=== PATIENT | male | born 1940 | race Caucasian/White ===

== ENCOUNTER → 2018-05-03 09:45 | Outpatient (CLI) | payer MEDICARE, SELFPAY ==
[2018-05-03 11:06] LABS: Cholesterol 198 mg/dL (140-199); HDL Cholesterol 61 mg/dL (40-60); LDL Cholesterol Calculated 125 mg/dL (<100); Triglycerides 62 mg/dL (35-150)
[2018-05-03 11:38] LABS: TSH w/ Reflex to FT4 1.97 uIU/mL (0.47-4.68)
== END ==
PROVIDERS: Family Provider Internal Medicine Cardiovascular Disease; PCP Family Medicine; Visit Provider Family Medicine
DX: E78.5 Hyperlipidemia, unspecified (principal); E04.2 Nontoxic multinodular goiter
CPT/HCPCS: 36415; 80061; 84443

== ENCOUNTER → 2018-05-05 11:47 | Outpatient (CLI) | payer MEDICARE, SELFPAY ==
[2018-05-05 12:49] LABS: Blood Urea Nitrogen 23 mg/dL (9-20); Calcium 9.4 mg/dL (8.4-10.2); Carbon Dioxide 32 mmol/L (22-32); Chloride 100 mmol/L (98-107); Creatine Kinase 218 U/L (55-170); Estimated Glomerular Filt Rate > 60.0 mL/min (>60); Glucose 108 mg/dL (80-110); HEMOLYSIS < 15 (0-50); Potassium 4.5 mmol/L (3.4-5.1); Sodium 138 mmol/L (137-145)
== END ==
PROVIDERS: Family Provider Internal Medicine Cardiovascular Disease; PCP Family Medicine; Visit Provider Family Medicine
DX: I10 Essential (primary) hypertension (principal); E78.5 Hyperlipidemia, unspecified; I48.91 Unspecified atrial fibrillation; M79.1 Myalgia; T46.6X5A Adverse effect of antihyperlipidemic and antiarteriosclerotic drugs, initial encounter
CPT/HCPCS: 80048; 82550

== ENCOUNTER → 2018-06-18 10:39 | Outpatient (CLI) | payer MEDICARE, SELFPAY ==
[2018-06-18 11:54] LABS: Creatine Kinase 149 U/L (55-170)
[2018-06-18 16:23] LABS: Vitamin D 25 Hydroxy (D3) 40.3 ng/mL (30.0-100.0)
== END ==
PROVIDERS: PCP Family Medicine; Visit Provider Family Medicine
DX: G72.0 Drug-induced myopathy (principal); T46.6X5A Adverse effect of antihyperlipidemic and antiarteriosclerotic drugs, initial encounter
CPT/HCPCS: 36415; 82306; 82550

== ENCOUNTER → 2018-09-14 09:54 | Outpatient (CLI) | payer MEDICARE, SELFPAY ==
[2018-09-14 12:05] LABS: Cholesterol 193 mg/dL (140-199); Creatine Kinase 220 U/L (55-170); HDL Cholesterol 64 mg/dL (40-60); LDL Cholesterol Calculated 114 mg/dL (<100); Triglycerides 75 mg/dL (35-150)
== END ==
PROVIDERS: Family Provider Internal Medicine Cardiovascular Disease; PCP Family Medicine; Visit Provider Family Medicine
DX: E78.5 Hyperlipidemia, unspecified (principal); M79.10 Myalgia, unspecified site; T46.6X5A Adverse effect of antihyperlipidemic and antiarteriosclerotic drugs, initial encounter
CPT/HCPCS: 36415; 80061; 82550

== ENCOUNTER → 2018-11-18 09:43 | Outpatient (CLI) | payer MEDICARE, SELFPAY ==
[2018-11-18 13:43] LABS: Cholesterol 233 mg/dL (140-199); Creatine Kinase 211 U/L (55-170); HDL Cholesterol 56 mg/dL (40-60); LDL Cholesterol Calculated 161 mg/dL (<100); Triglycerides 82 mg/dL (35-150)
== END ==
PROVIDERS: PCP Family Medicine; Visit Provider Internal Medicine Cardiovascular Disease
DX: I48.91 Unspecified atrial fibrillation (principal); E78.00 Pure hypercholesterolemia, unspecified
CPT/HCPCS: 36415; 80061; 82550

== ENCOUNTER → 2019-02-11 10:16 | Outpatient (CLI) | payer MEDICARE, SELFPAY ==
[2019-02-11 11:24] LABS: Cholesterol 186 mg/dL (140-199); Creatine Kinase 188 U/L (55-170); HDL Cholesterol 48 mg/dL (40-60); LDL Cholesterol Calculated 123 mg/dL (<100); Triglycerides 75 mg/dL (35-150)
== END ==
PROVIDERS: Family Provider Internal Medicine Cardiovascular Disease; PCP Family Medicine; Visit Provider Family Medicine
DX: E78.5 Hyperlipidemia, unspecified (principal); M79.10 Myalgia, unspecified site; T46.6X5A Adverse effect of antihyperlipidemic and antiarteriosclerotic drugs, initial encounter
CPT/HCPCS: 36415; 80061; 82550

== ENCOUNTER → 2019-04-12 08:32 | Outpatient (CLI) | payer MEDICARE, SELFPAY ==
[2019-04-12 10:49] LABS: Alanine Aminotransferase 23 IU/L (21-72); Albumin 4.2 g/dL (3.5-5.0); Albumin Globulin Ratio 1.5 (1.0-2.8); Alkaline Phosphatase 50 U/L (38-126); Aspartate Aminotransferase 40 IU/L (17-59); BUN Creatinine Ratio 16.7 (6-22); Bilirubin Total 0.9 mg/dL (0.2-1.3); Blood Urea Nitrogen 15 mg/dL (9-20); Calcium 9.3 mg/dL (8.4-10.2); Carbon Dioxide 32 mmol/L (22-32); Chloride 94 mmol/L (98-107); Cholesterol 190 mg/dL (140-199); Estimated Glomerular Filt Rate > 60.0 mL/min (>60); Globulin 2.8 g/dL (1.7-4.1); Glucose 112 mg/dL (80-110); HDL Cholesterol 52 mg/dL (40-60); HEMOLYSIS < 15 (0-50); LDL Cholesterol Calculated 125 mg/dL (<100); Potassium 4.3 mmol/L (3.4-5.1); Sodium 134 mmol/L (137-145); Triglycerides 65 mg/dL (35-150)
== END ==
PROVIDERS: PCP Family Medicine; Visit Provider Family Medicine
DX: E78.5 Hyperlipidemia, unspecified (principal)
CPT/HCPCS: 36415; 80053; 80061

== ENCOUNTER → 2019-04-26 10:31 | Outpatient (CLI) | payer MEDICARE, SELFPAY ==
--- NOTE | 2019-04-26 10:33 | DI.US.S_ITS ---
PROCEDURE: US THYROID INDICATIONS: FOLLOW-UP NODULES TECHNIQUE: Real-time scanning was performed of the thyroid gland, with image documentation. COMPARISON: [facility], [place], THYROID, 05/14/2016, 10:48. [facility], [place], THYROID, 04/23/2016, 10:50. [facility], [place], US THYROID, 02/17/2018, 7:52. FINDINGS: Right: Thyroid lobe measures 4.4 x 1.9 x 1.2 cm, and is homogeneous in echotexture. Left: Thyroid lobe measures 3.5 x 1.1 x 1.2 cm, and is homogenous in echotexture. Isthmus: 2.7 mm thick. Nodule number: 1 Location: Left mid Size: Unchanged at 1.3 x 0.9 x 0.7 cm. Composition: Predominantly solid Echogenicity: Hypoechoic Shape: wider than tall. Margins: Irregular Echogenic foci: None Total points: 5 ACR TI-RADS category: Moderately suspicious Nodule number: 2 Location: Right mid Size: Unchanged at 0.8 x 0.7 x 0.5 cm. Composition: Minimally cystic Echogenicity: Hypoechoic Shape: wider than tall. Margins: Smooth Echogenic foci: None Total points: 2 ACR TI-RADS category: No suspicious Nodule number: 3 Location: Right inferior Size: 1.4 x 0.9 x 0.6 cm. Composition: Solid Echogenicity: Isoechoic Shape: wider than tall. Margins: Smooth Echogenic foci: None Total points: 3 ACR TI-RADS category: Mildly suspicious IMPRESSION: Thyroid nodules as above. Recommend continued followup ultrasound as detailed below. ACR TI-RADS definitions and recommendations: TI-RADS 1 (benign): 0 points. FNA not needed. TI-RADS 2 (not suspicious): 2 points. FNA not needed. TI-RADS 3 (mildly suspicious): 3 points. * FNA if 2.5 cm or larger, follow up if 1.5 cm or larger (at 1, 3, and 5 years). TI-RADS 4 (moderately suspicious): 4-6 points. * FNA if 1.5 cm or larger, follow up if 1 cm or larger (at 1, 2, 3, and 5 years). TI-RADS 5 (highly suspicious): 7 points or more. * FNA if 1 cm or larger, follow up if 0.5 cm or larger (every year for 5 years). Dictated by: Jameson CORTEZ Interpreted: Lulu Calderon MD on 04/26/2019 at 11:25 Approved by: Lulu Calderon M.D. on 04/26/2019 at 16:20
== END ==
PROVIDERS: PCP Family Medicine; Visit Provider Family Medicine
DX: E04.2 Nontoxic multinodular goiter (principal)
CPT/HCPCS: 76536

== ENCOUNTER → 2019-08-02 09:52 | Outpatient (CLI) | payer MEDICARE, SELFPAY ==
[2019-08-02 10:57] LABS: Alanine Aminotransferase 32 IU/L (21-72); Albumin 4.3 g/dL (3.5-5.0); Albumin Globulin Ratio 1.5 (1.0-2.8); Alkaline Phosphatase 54 U/L (38-126); Aspartate Aminotransferase 46 IU/L (17-59); Blood Urea Nitrogen 18 mg/dL (9-20); Calcium 9.6 mg/dL (8.4-10.2); Carbon Dioxide 33 mmol/L (22-32); Chloride 96 mmol/L (98-107); Cholesterol 174 mg/dL (140-199); Creatine Kinase 337 U/L (55-170); Estimated Glomerular Filt Rate > 60.0 mL/min (>60); Globulin 2.9 g/dL (1.7-4.1); Glucose 122 mg/dL (80-110); HDL Cholesterol 53 mg/dL (40-60); HEMOLYSIS < 15 (0-50); LDL Cholesterol Calculated 109 mg/dL (<100); Potassium 5.3 mmol/L (3.4-5.1); Sodium 135 mmol/L (137-145); Total Protein 7.2 g/dL (6.3-8.2); Triglycerides 59 mg/dL (35-150)
[2019-08-02 11:15] LABS: Free T3, Triiodothyronine Free 3.37 pg/mL (2.77-5.27); Free T4, Direct Thyroxine 1.16 ng/dL (0.78-2.19)
[2019-08-02 11:29] LABS: Thyroid Stimulating Hormone 2.18 uIU/mL (0.47-4.68)
[2019-08-04 14:34] LABS: Thyroid Peroxidase Antibodies 170 IU/mL (< 9)
== END ==
PROVIDERS: PCP Family Medicine; Visit Provider Family Medicine
DX: I10 Essential (primary) hypertension (principal); E03.9 Hypothyroidism, unspecified; E78.5 Hyperlipidemia, unspecified
CPT/HCPCS: 36415; 80053; 80061; 82550; 84439; 84443; 84481; 86376

== ENCOUNTER 2019-08-16 10:30 | Outpatient (RCR) | payer MEDICARE, SELFPAY ==
--- NOTE | 2019-07-14 14:59 | PT.OIE ---
Current Diagnoses Unilateral primary osteoarthritis, right knee (07/14/19) Unilateral primary osteoarthritis, left knee (07/14/19) Past Medical History (Last Updated 04/21/19 @ 19:14 by Lelo Elkins DO) Atrial fibrillation (Chronic 2002) Atrial fibrillation with controlled ventricular response (Chronic 07/07/11) BCC (basal cell carcinoma of skin) (Resolved 2013) Cataract (Resolved 2013) Central sleep apnea (Chronic) Chicken pox (Resolved) Hyperlipidemia (Chronic 07/07/11) Hyperlipidemia (Chronic) Hypertension (Chronic) Hypertension (Chronic) Hypothyroidism (Chronic) Measles (Resolved) Multinodular goiter (Chronic 11/16/15) Mumps (Resolved) Obstructive sleep apnea (Chronic) Rupture of left triceps tendon (Resolved 2012) Sleep apnea (Chronic 2003) Squamous cell carcinoma of left lower leg (Resolved) Past Surgical History (Last Reviewed 04/16/19 @ 19:24 by VIRGEN Valdovinos) Anesthesia (Resolved) History of basal cell carcinoma excision (Resolved 2013) History of cataract removal with insertion of prosthetic lens (Resolved 10/2014) History of orthopedic surgery (Resolved 2012) History of thumb surgery (Resolved ~1951) Visit Care Team Role Provider Type Lelo Elkins DO Primary Care Provider Physician Specialty: Family Practice Address: [address] [place] [address], [address], [address] Email: [email or web address] Az Oshea MD Attending Provider Non-Staff Specialty: Orthopedics Address: [address] [place] [address], [phone] Email: Physical Therapy Initial Evaluation PT-OP-A Visit Information Start: 07/12/19 16:28 Freq: Status: Active Protocol: Document 07/14/19 10:38 LRN (Rec: 07/14/19 13:37 LRN [id number]) Out-Patient Physical Therapy Visit Information Visit Information Visit Type Initial Evaluation Visit Start Time 10:38 Visit Stop Time 11:30 Total Visit Minutes 52 Visit Number 1 Evaluation Information Evaluation Date 07/14/19 Precautions Precautions Neuropathy History of skin cancer Controlled blood pressure with use of Warfarin PT-OP-B Current Condition Start: 07/12/19 16:28 Freq: Status: Active Protocol: Document 07/14/19 10:38 LRN (Rec: 07/14/19 13:37 LRN [id number]) Current Condition Prior Functional Status Baseline Function- ADL's Independent Baseline Function- Mobility Independent Baseline Function- Gait Able to walk on uneven ground (trails, inclines) 1 yr ago. Baseline Function- Other Ambulates up/down stairs with reciprocal gait > 2 times, 6 months ago. Current Functional Impairments (Reported) Functional Limitations- ADL's Decreased ability to transfer sit to stand from regular height surface (uses hands). Decreased ability to transfer in/out of car (lifts legs into car). Functional Limitations- Mobility/Gait Limited tolerance for up/down stairs in sideways gait ~ 2 times. Limited ability to walk on unlevel ground (inclines, trails) Personal Factors Other Personal Factors That May Effect Arthritis Therapy/Recovery Neuropathy History of skin cancer Controlled blood pressure with use of Warfarin PT-OP-C Subjective Start: 07/12/19 16:28 Freq: Status: Active Protocol: Document 07/14/19 10:38 LRN (Rec: 07/14/19 13:37 LRN [id number]) Patient Questionnaires Lower Extremity Functional Scale LEFS Score 44 LEFS Impairment 40 to 59% Impaired (Score 32- 47) OP-PT Pain Assessment Pain Assessment Grid Paper Pain Assessment Grid Completed Yes Location Bilateral Anterior Knee Pain Location Details Inferior to the patella Scale Used Numeric (1 - 10) Description Aching Description- Other Pain intensity 3-5/10 Frequency Daily Pain Duration During and after activity Radiating Location Bilateral inner thigh muscles Pain Aggravating Factors Changing Position,ADL's, Activity,Walking Pain Alleviating Factors Medication,Inactivity Home Pain Medication Use Pain Medications Used Yes Home Pain Medication Frequency Tylenol as needed. PT-OP-F Manual Assessment Start: 07/12/19 16:28 Freq: Status: Active Protocol: Document 07/14/19 10:38 LRN (Rec: 07/14/19 13:37 LRN [id number]) Manual Assessments Soft Tissue Assessment Soft Tissue Mobility Assessment No palpable areas of tenderness around the knee joints. Tender at inner thigh with stretch. Joint Mobility Assessment Joint Mobility Assessment Pain in medial R knee with varus stress applied. PT-OP-G Mobility & Gait Start: 07/12/19 16:28 Freq: Status: Active Protocol: Document 07/14/19 10:38 LRN (Rec: 07/14/19 13:37 LRN [id number]) OP Mobility Evaluation Transfers Sit to Stand Difficulty with regular height chairs and standard toilet, requiring use of UE's to stand Floor Transfers Requires use of UE's to push into standing. Functional Movements Squats Difficulty due to cheryl knee pain OP Gait Assessment Gait Gait Assistance Required: Independent Able to Maintain Weight Bearing Status Yes During Gait Assistive Devices Assistive Device None Comments Gait Comments Gait speed is 20'/7.41 secs ( 10'/3.75 secs) = 2.7 ft/sec. Pt ambulates with excessive R trunk sway, heavy R heel strike, decreased R knee flex during toe off phase. Stair Climbing Evaluation Comments Stair Climbing Comments Pt notes pain with stair ambulation. PT-OP-J Posture/Palpation/Skin Start: 07/12/19 16:28 Freq: Status: Active Protocol: Document 07/14/19 10:38 LRN (Rec: 07/14/19 13:37 LRN [id number]) Posture Evaluation Comments Posture Comments Standing: Low R shoulder and scapula, varus of bilateral knees. PT-OP-K Range of Motion Start: 07/12/19 16:28 Freq: Status: Active Protocol: Document 07/14/19 10:38 LRN (Rec: 07/14/19 13:37 LRN [id number]) Hip Goniometric Range of Motion Hip Right Passive Testing Position Supine Straight Leg Raise 80 Abduction 10 Internal Rotation 30 External Rotation 20 Left Passive Testing Position Supine Straight Leg Raise 25 Abduction 20 Internal Rotation 25 External Rotation 20 Knee Goniometric Range of Motion Knee Right Knee ROM WFL Yes Flexion Active (degrees) 132 Extension Active (degrees) 0 Left Flexion Active (degrees) 132 Extension Active (degrees) 0 Ankle and Foot Goniometric Range of Motion Ankle and Foot Right Active Ankle/Foot ROM WFL Yes Left Active Ankle/Foot ROM WFL Yes PT-OP-L Special Tests Start: 07/12/19 16:28 Freq: Status: Active Protocol: Document 07/14/19 10:38 LRN (Rec: 07/14/19 13:37 LRN [id number]) Special Tests Knee Special Tests Varus- 25 Degrees Test Results Positive R knee Comments R knee: Pain in medial knee joint Patellar Grind Test Test Results Negative bilaterally PT-OP-M Strength Start: 07/12/19 16:28 Freq: Status: Active Protocol: Document 07/14/19 10:38 LRN (Rec: 07/14/19 13:37 LRN [id number]) Hip Strength Hip Manual Muscle Testing Right Adduction 3 Fair Comments Generally WNL except as noted above. Left Adduction 4 Good Reason Not Measured WFL Comments Generally WNL except as noted above. Knee Strength Knee Manual Muscle Testing Right Reason Not Measured WFL Left Reason Not Measured WFL Ankle/Foot Strength Ankle and Foot Manual Muscle Testing Right Plantarflexion (S1) 3+ Fair+ Comments Generally WNL except PF above. Left Plantarflexion (S1) 3+ Fair+ Comments Generally WNL except PF above. PT-OP-Q Treatments Start: 07/12/19 16:28 Freq: Status: Active Protocol: Document 07/14/19 10:38 LRN (Rec: 07/14/19 13:37 LRN [id number]) Self-Care/Home Management Treatment Education Patient Education Home Exercise Program,Joint Protection,Pain Management, Posture Other Education Discussed use of stationary bike for exercise and use of exercise to help maintain joint stability. Discussed postural changes and effects on weight bearing of knee joints. Discussed use of cryotherapy for pain management Activities Self-Care/Home Management Activities Instructed, educated, reviewed with pt verbal HEP: Stretch to Hip AD's. I/S pt in decreased heel strike pressure in the R LE and I/S pt in use of stationary bike for low weight bearing and high rpm of 70 or above with precautions for decreasing or stopping with pain. PT-OP-T Assessment and Plan Start: 07/12/19 16:28 Freq: Status: Active Protocol: Document 07/14/19 10:38 LRN (Rec: 07/14/19 13:37 LRN [id number]) Physical Therapy Assessment Rehab Potential Rehabilitation Potential Good Evaluation Complexity Number of Personal Factors/Comorbidities 1-2 Number of Body Systems Impaired 4 or More Clinical Presentation at Evaluation Stable Impairments Impairments Activity Tolerance,Functional Mobility,Gait,Pain,ROM, Strength Other Concerns Barriers to Rehabilitation Arthritis Neuropathy History of skin cancer Goals Five Impairment Lacks appropriate self care HEP. Residential Goal (LTG) Pt will be independent in a self care HEP. LTG Duration 09/08/19 Four Impairment Difficulty getting in/out of his car (low surface) due to cheryl knee pain. Blanking Machine Operator Goal (LTG) Pt will be able to report getting in/out of a car with moderate or less difficulty per LEFS score. LTG Duration 08/25/19 Three Impairment Stair ambulation going down sideways due to bilateral knee pain. Residential Goal (LTG) Pt will be able to ambulate a flight of stairs with a normal gait pattern with a little bit to moderate difficulty. LTG Duration 08/25/19 Two Impairment Bilateral knee pain with incline ambulation. Residential Goal (LTG) Pt will be able to ambulate 30 ' on unlevel ground and/or inclines (trails) using a hiking stick with tolerable pain of no greater than 3/10. LTG Duration 08/25/19 One Impairment Decreased bilateral hip mobility contributing to cheryl knee pain Short Term Goal (STG) Improve hip AB mobility to lessen hip AD pain with walking. STG Duration 08/01/19 Assessment Summary Assessment Pt presents with decreased hip soft tissue mobility and mechanical dysfunction of the knees bilaterally with limited knee mobility. He has decreased functional strength for getting up/down from regular height chairs and difficulty getting in/out of his car due to bilateral knee pain. Mechanically he is hindered due to his tall height. He has no palpable tenderness at the knee joints, but medial knee pain can be reproduced with compression at the joint. He has reproduciable pain in the anterior knees with PSLR, but he has no specific areas of tenderness in the lumbar spine ; therefore it is doubtful he has lumbar involvement, but should be monitored anyway for possible involvement. The pt will benefit from skilled physical therapy to improve hip (AB & hamstring)/knee ( flex) joint mobility, improve stability at the knee with general LE strengthening (hip AD and ankle PF), strengthen with functional motions and gait mechanics and posture. Physical Therapy Plan Frequency and Duration Frequency of Treatment 2x/Week Plan of Care Start Date 07/14/19 Plan of Care End Date 09/08/19 Therapeutic Interventions Therapeutic Interventions Balance Training,Gait Training ,Home Exercise Program,Joint Mobilizations,Manual Therapy, Patient/Caregiver Education, Self-Care/Home Management,Soft Tissue Mobilization,Taping, Therapeutic Activities, Therapeutic Exercises Modalities Cold Pack/Ice Massage,Electric Stimulation,Hot Packs Next Visit Focus/Plan Next Note Type Treatment Note Next Visit Plan Start with LE cardio exercise bike with low resistance/high RPMS, progress to gait on TM at inclines. Start hip AD/ hamstring and knee flexion stretching and strengthening: hip AD's and ankle PF. Add balance training to limit hard heel strike with gait. Manual therapy as needed to improve patella and knee joint mechanics. Monitor for R meniscus injury. Stair, gait, posture training
--- NOTE | 2019-07-14 15:11 | PT.OIE ---
Current Diagnoses Unilateral primary osteoarthritis, right knee (07/14/19) Unilateral primary osteoarthritis, left knee (07/14/19) Past Medical History (Last Updated 04/21/19 @ 19:14 by Lelo Elkins DO) Atrial fibrillation (Chronic 2002) Atrial fibrillation with controlled ventricular response (Chronic 07/07/11) BCC (basal cell carcinoma of skin) (Resolved 2013) Cataract (Resolved 2013) Central sleep apnea (Chronic) Chicken pox (Resolved) Hyperlipidemia (Chronic 07/07/11) Hyperlipidemia (Chronic) Hypertension (Chronic) Hypertension (Chronic) Hypothyroidism (Chronic) Measles (Resolved) Multinodular goiter (Chronic 11/16/15) Mumps (Resolved) Obstructive sleep apnea (Chronic) Rupture of left triceps tendon (Resolved 2012) Sleep apnea (Chronic 2003) Squamous cell carcinoma of left lower leg (Resolved) Past Surgical History (Last Reviewed 04/16/19 @ 19:24 by VIRGEN Valdovinos) Anesthesia (Resolved) History of basal cell carcinoma excision (Resolved 2013) History of cataract removal with insertion of prosthetic lens (Resolved 10/2014) History of orthopedic surgery (Resolved 2012) History of thumb surgery (Resolved ~1951) Visit Care Team Role Provider Type Lelo Elkins DO Primary Care Provider Physician Specialty: Family Practice Address: [address] [place] [address], [address], [address] Email: [email or web address] Az Oshea MD Attending Provider Non-Staff Specialty: Orthopedics Address: [address] [place] [address], [phone] Email: Physical Therapy Initial Evaluation PT-OP-A Visit Information Start: 07/12/19 16:28 Freq: Status: Active Protocol: Document 07/14/19 10:38 LRN (Rec: 07/14/19 13:37 LRN [id number]) Out-Patient Physical Therapy Visit Information Visit Information Visit Type Initial Evaluation Visit Start Time 10:38 Visit Stop Time 11:30 Total Visit Minutes 52 Visit Number 1 Evaluation Information Evaluation Date 07/14/19 Precautions Precautions Neuropathy History of skin cancer Controlled blood pressure with use of Warfarin PT-OP-B Current Condition Start: 07/12/19 16:28 Freq: Status: Active Protocol: Document 07/14/19 10:38 LRN (Rec: 07/14/19 13:37 LRN [id number]) Current Condition History of Current Condition Onset Date 10 yrs ago Current Complaints Progressively worsening of cheryl knee pain History of Current Condition Pt reports he has had X-rays indicating arthritis, but not severe enough for surgery. He has tried a strap knee brace that he noticed with use onset of hip problems (medial thigh pain). He reports being on Lipitor for 10 yrs and was told part of the pain in his legs was medication induced. He was changed to a non-statin medication and states some of the pain in his legs has decreased. He is limited in his ability to walk as fast as he used to and can't walk uneven ground (trails). He has pain mainly with transitions and with activity. Prior Treatments and Tests PT reports X-rays of both knees show arthrits of bone on bone. He has had a cortisone injection in his R medial knee that caused more pain. Treatment Goals Patient/Caregiver Goals Pt goal is to be able to walk better, return to walking trails and be able to have less pain overall. He understands he will not become painfree but would like to be able to transfer with less pain. Prior Functional Status Baseline Function- ADL's Independent Baseline Function- Mobility Independent Baseline Function- Gait Able to walk on uneven ground (trails, inclines) 1 yr ago. Baseline Function- Other Ambulates up/down stairs with reciprocal gait > 2 times, 6 months ago. Current Functional Impairments (Reported) Functional Limitations- ADL's Decreased ability to transfer sit to stand from regular height surface (uses hands). Decreased ability to transfer in/out of car (lifts legs into car). Functional Limitations- Mobility/Gait Limited tolerance for up/down stairs in sideways gait ~ 2 times. Limited ability to walk on unlevel ground (inclines, trails) Personal Factors Other Personal Factors That May Effect Arthritis Therapy/Recovery Neuropathy History of skin cancer Controlled blood pressure with use of Warfarin PT-OP-C Subjective Start: 07/12/19 16:28 Freq: Status: Active Protocol: Document 07/14/19 10:38 LRN (Rec: 07/14/19 13:37 LRN [id number]) Patient Questionnaires Lower Extremity Functional Scale LEFS Score 44 LEFS Impairment 40 to 59% Impaired (Score 32- 47) OP-PT Pain Assessment Pain Assessment Grid Paper Pain Assessment Grid Completed Yes Location Bilateral Anterior Knee Pain Location Details Inferior to the patella Scale Used Numeric (1 - 10) Description Aching Description- Other Pain intensity 3-5/10 Frequency Daily Pain Duration During and after activity Radiating Location Bilateral inner thigh muscles Pain Aggravating Factors Changing Position,ADL's, Activity,Walking Pain Alleviating Factors Medication,Inactivity Home Pain Medication Use Pain Medications Used Yes Home Pain Medication Frequency Tylenol as needed. PT-OP-F Manual Assessment Start: 07/12/19 16:28 Freq: Status: Active Protocol: Document 07/14/19 10:38 LRN (Rec: 07/14/19 13:37 LRN [id number]) Manual Assessments Soft Tissue Assessment Soft Tissue Mobility Assessment No palpable areas of tenderness around the knee joints. Tender at inner thigh with stretch. Joint Mobility Assessment Joint Mobility Assessment Pain in medial R knee with varus stress applied. PT-OP-G Mobility & Gait Start: 07/12/19 16:28 Freq: Status: Active Protocol: Document 07/14/19 10:38 LRN (Rec: 07/14/19 13:37 LRN [id number]) OP Mobility Evaluation Transfers Sit to Stand Difficulty with regular height chairs and standard toilet, requiring use of UE's to stand Floor Transfers Requires use of UE's to push into standing. Functional Movements Squats Difficulty due to cheryl knee pain OP Gait Assessment Gait Gait Assistance Required: Independent Able to Maintain Weight Bearing Status Yes During Gait Assistive Devices Assistive Device None Comments Gait Comments Gait speed is 20'/7.41 secs ( 10'/3.75 secs) = 2.7 ft/sec. Pt ambulates with excessive R trunk sway, heavy R heel strike, decreased R knee flex during toe off phase. Stair Climbing Evaluation Comments Stair Climbing Comments Pt notes pain with stair ambulation. PT-OP-J Posture/Palpation/Skin Start: 07/12/19 16:28 Freq: Status: Active Protocol: Document 07/14/19 10:38 LRN (Rec: 07/14/19 13:37 LRN [id number]) Posture Evaluation Comments Posture Comments Standing: Low R shoulder and scapula, varus of bilateral knees. PT-OP-K Range of Motion Start: 07/12/19 16:28 Freq: Status: Active Protocol: Document 07/14/19 10:38 LRN (Rec: 07/14/19 13:37 LRN [id number]) Hip Goniometric Range of Motion Hip Right Passive Testing Position Supine Straight Leg Raise 80 Abduction 10 Internal Rotation 30 External Rotation 20 Left Passive Testing Position Supine Straight Leg Raise 25 Abduction 20 Internal Rotation 25 External Rotation 20 Knee Goniometric Range of Motion Knee Right Knee ROM WFL Yes Flexion Active (degrees) 132 Extension Active (degrees) 0 Left Flexion Active (degrees) 132 Extension Active (degrees) 0 Ankle and Foot Goniometric Range of Motion Ankle and Foot Right Active Ankle/Foot ROM WFL Yes Left Active Ankle/Foot ROM WFL Yes PT-OP-L Special Tests Start: 07/12/19 16:28 Freq: Status: Active Protocol: Document 07/14/19 10:38 LRN (Rec: 07/14/19 13:37 LRN [id number]) Special Tests Knee Special Tests Varus- 25 Degrees Test Results Positive R knee Comments R knee: Pain in medial knee joint Patellar Grind Test Test Results Negative bilaterally PT-OP-M Strength Start: 07/12/19 16:28 Freq: Status: Active Protocol: Document 07/14/19 10:38 LRN (Rec: 07/14/19 13:37 LRN [id number]) Hip Strength Hip Manual Muscle Testing Right Adduction 3 Fair Comments Generally WNL except as noted above. Left Adduction 4 Good Reason Not Measured WFL Comments Generally WNL except as noted above. Knee Strength Knee Manual Muscle Testing Right Reason Not Measured WFL Left Reason Not Measured WFL Ankle/Foot Strength Ankle and Foot Manual Muscle Testing Right Plantarflexion (S1) 3+ Fair+ Comments Generally WNL except PF above. Left Plantarflexion (S1) 3+ Fair+ Comments Generally WNL except PF above. PT-OP-Q Treatments Start: 07/12/19 16:28 Freq: Status: Active Protocol: Document 07/14/19 10:38 LRN (Rec: 07/14/19 13:37 LRN [id number]) Self-Care/Home Management Treatment Education Patient Education Home Exercise Program,Joint Protection,Pain Management, Posture Other Education Discussed use of stationary bike for exercise and use of exercise to help maintain joint stability. Discussed postural changes and effects on weight bearing of knee joints. Discussed use of cryotherapy for pain management Activities Self-Care/Home Management Activities Instructed, educated, reviewed with pt verbal HEP: Stretch to Hip AD's. I/S pt in decreased heel strike pressure in the R LE and I/S pt in use of stationary bike for low weight bearing and high rpm of 70 or above with precautions for decreasing or stopping with pain. PT-OP-T Assessment and Plan Start: 07/12/19 16:28 Freq: Status: Active Protocol: Document 07/14/19 10:38 LRN (Rec: 07/14/19 13:37 LRN [id number]) Physical Therapy Assessment Rehab Potential Rehabilitation Potential Good Evaluation Complexity Number of Personal Factors/Comorbidities 1-2 Number of Body Systems Impaired 4 or More Clinical Presentation at Evaluation Stable Impairments Impairments Activity Tolerance,Functional Mobility,Gait,Pain,ROM, Strength Other Concerns Barriers to Rehabilitation Arthritis Neuropathy History of skin cancer Goals Five Impairment Lacks appropriate self care HEP. [facility] Goal (LTG) Pt will be independent in a self care HEP. LTG Duration 09/08/19 Four Impairment Difficulty getting in/out of his car (low surface) due to cheryl knee pain. [employer] Goal (LTG) Pt will be able to report getting in/out of a car with moderate or less difficulty per LEFS score. LTG Duration 08/25/19 Three Impairment Stair ambulation going down sideways due to bilateral knee pain. [employer] Goal (LTG) Pt will be able to ambulate a flight of stairs with a normal gait pattern with a little bit to moderate difficulty. LTG Duration 08/25/19 Two Impairment Bilateral knee pain with incline ambulation. [employer] Goal (LTG) Pt will be able to ambulate 30 ' on unlevel ground and/or inclines (trails) using a hiking stick with tolerable pain of no greater than 3/10. LTG Duration 08/25/19 One Impairment Decreased bilateral hip mobility contributing to cheryl knee pain Short Term Goal (STG) Improve hip AB mobility to lessen hip AD pain with walking. STG Duration 08/01/19 Assessment Summary Assessment Pt presents with decreased hip soft tissue mobility and mechanical dysfunction of the knees bilaterally with limited knee mobility. He has decreased functional strength for getting up/down from regular height chairs and difficulty getting in/out of his car due to bilateral knee pain. Mechanically he is hindered due to his tall height. He has no palpable tenderness at the knee joints, but medial knee pain can be reproduced with compression at the joint. He has reproduciable pain in the anterior knees with PSLR, but he has no specific areas of tenderness in the lumbar spine ; therefore it is doubtful he has lumbar involvement, but should be monitored anyway for possible involvement. The pt will benefit from skilled physical therapy to improve hip (AB & hamstring)/knee ( flex) joint mobility, improve stability at the knee with general LE strengthening (hip AD and ankle PF), strengthen with functional motions and gait mechanics and posture. Physical Therapy Plan Frequency and Duration Frequency of Treatment 2x/Week Plan of Care Start Date 07/14/19 Plan of Care End Date 09/08/19 Therapeutic Interventions Therapeutic Interventions Balance Training,Gait Training ,Home Exercise Program,Joint Mobilizations,Manual Therapy, Patient/Caregiver Education, Self-Care/Home Management,Soft Tissue Mobilization,Taping, Therapeutic Activities, Therapeutic Exercises Modalities Cold Pack/Ice Massage,Electric Stimulation,Hot Packs Next Visit Focus/Plan Next Note Type Treatment Note Next Visit Plan Start with LE cardio exercise bike with low resistance/high RPMS, progress to gait on TM at inclines. Start hip AD/ hamstring and knee flexion stretching and strengthening: hip AD's and ankle PF. Add balance training to limit hard heel strike with gait. Manual therapy as needed to improve patella and knee joint mechanics. Monitor for R meniscus injury. Stair, gait, posture training
--- NOTE | 2019-07-15 12:22 | PT.OTN ---
Current Diagnoses Unilateral primary osteoarthritis, right knee (07/15/19) Unilateral primary osteoarthritis, left knee (07/15/19) Physical Therapy Treatment Note PT-OP-A Visit Information Start: 07/12/19 16:28 Freq: Status: Active Protocol: Document 07/15/19 09:54 LRN (Rec: 07/15/19 10:34 LRN [id number]) Out-Patient Physical Therapy Visit Information Visit Information Visit Type Treatment Note Visit Start Time 09:54 Visit Stop Time 10:38 Total Visit Minutes 44 Visit Number 2 Evaluation Information Evaluation Date 07/14/19 Precautions Precautions Neuropathy History of skin cancer Controlled blood pressure with use of Warfarin PT-OP-B Current Condition Start: 07/12/19 16:28 Freq: Status: Active Protocol: Document 07/14/19 10:38 LRN (Rec: 07/14/19 13:37 LRN [id number]) Current Condition History of Current Condition Onset Date 10 yrs ago Current Complaints Progressively worsening of espinoza knee pain History of Current Condition Pt reports he has had X-rays indicating arthritis, but not severe enough for surgery. He has tried a strap knee brace that he noticed with use onset of hip problems (medial thigh pain). He reports being on Lipitor for 10 yrs and was told part of the pain in his legs was medication induced. He was changed to a non-statin medication and states some of the pain in his legs has decreased. He is limited in his ability to walk as fast as he used to and can't walk uneven ground (trails). He has pain mainly with transitions and with activity. Prior Treatments and Tests PT reports X-rays of both knees show arthrits of bone on bone. He has had a cortisone injection in his R medial knee that caused more pain. Treatment Goals Patient/Caregiver Goals Pt goal is to be able to walk better, return to walking trails and be able to have less pain overall. He understands he will not become painfree but would like to be able to transfer with less pain. Prior Functional Status Baseline Function- ADL's Independent Baseline Function- Mobility Independent Baseline Function- Gait Able to walk on uneven ground (trails, inclines) 1 yr ago. Baseline Function- Other Ambulates up/down stairs with reciprocal gait > 2 times, 6 months ago. Current Functional Impairments (Reported) Functional Limitations- ADL's Decreased ability to transfer sit to stand from regular height surface (uses hands). Decreased ability to transfer in/out of car (lifts legs into car). Functional Limitations- Mobility/Gait Limited tolerance for up/down stairs in sideways gait ~ 2 times. Limited ability to walk on unlevel ground (inclines, trails) Personal Factors Other Personal Factors That May Effect Arthritis Therapy/Recovery Neuropathy History of skin cancer Controlled blood pressure with use of Warfarin PT-OP-C Subjective Start: 07/12/19 16:28 Freq: Status: Active Protocol: Document 07/15/19 09:54 LRN (Rec: 07/15/19 10:34 LRN [id number]) OP-PT Subjective Patient Comments Patient Comments States he is very stiff normally in the mornings. States functionally he notes he has to pull himself up stairs and is not able to get up out of a bathtub. PT-OP-F Manual Assessment Start: 07/12/19 16:28 Freq: Status: Active Protocol: Document 07/14/19 10:38 LRN (Rec: 07/14/19 13:37 LRN [id number]) Manual Assessments Soft Tissue Assessment Soft Tissue Mobility Assessment No palpable areas of tenderness around the knee joints. Tender at inner thigh with stretch. Joint Mobility Assessment Joint Mobility Assessment Pain in medial R knee with varus stress applied. PT-OP-G Mobility & Gait Start: 07/12/19 16:28 Freq: Status: Active Protocol: Document 07/14/19 10:38 LRN (Rec: 07/14/19 13:37 LRN [id number]) OP Mobility Evaluation Transfers Sit to Stand Difficulty with regular height chairs and standard toilet, requiring use of UE's to stand Floor Transfers Requires use of UE's to push into standing. Functional Movements Squats Difficulty due to espinoza knee pain OP Gait Assessment Gait Gait Assistance Required: Independent Able to Maintain Weight Bearing Status Yes During Gait Assistive Devices Assistive Device None Comments Gait Comments Gait speed is 20'/7.41 secs ( 10'/3.75 secs) = 2.7 ft/sec. Pt ambulates with excessive R trunk sway, heavy R heel strike, decreased R knee flex during toe off phase. Stair Climbing Evaluation Comments Stair Climbing Comments Pt notes pain with stair ambulation. PT-OP-J Posture/Palpation/Skin Start: 07/12/19 16:28 Freq: Status: Active Protocol: Document 07/14/19 10:38 LRN (Rec: 07/14/19 13:37 LRN [id number]) Posture Evaluation Comments Posture Comments Standing: Low R shoulder and scapula, varus of bilateral knees. PT-OP-K Range of Motion Start: 07/12/19 16:28 Freq: Status: Active Protocol: Document 07/14/19 10:38 LRN (Rec: 07/14/19 13:37 LRN [id number]) Hip Goniometric Range of Motion Hip Right Passive Testing Position Supine Straight Leg Raise 80 Abduction 10 Internal Rotation 30 External Rotation 20 Left Passive Testing Position Supine Straight Leg Raise 25 Abduction 20 Internal Rotation 25 External Rotation 20 Knee Goniometric Range of Motion Knee Right Knee ROM WFL Yes Flexion Active (degrees) 132 Extension Active (degrees) 0 Left Flexion Active (degrees) 132 Extension Active (degrees) 0 Ankle and Foot Goniometric Range of Motion Ankle and Foot Right Active Ankle/Foot ROM WFL Yes Left Active Ankle/Foot ROM WFL Yes PT-OP-L Special Tests Start: 07/12/19 16:28 Freq: Status: Active Protocol: Document 07/14/19 10:38 LRN (Rec: 07/14/19 13:37 LRN [id number]) Special Tests Knee Special Tests Varus- 25 Degrees Test Results Positive R knee Comments R knee: Pain in medial knee joint Patellar Grind Test Test Results Negative bilaterally PT-OP-M Strength Start: 07/12/19 16:28 Freq: Status: Active Protocol: Document 07/14/19 10:38 LRN (Rec: 07/14/19 13:37 LRN [id number]) Hip Strength Hip Manual Muscle Testing Right Adduction 3 Fair Comments Generally WNL except as noted above. Left Adduction 4 Good Reason Not Measured WFL Comments Generally WNL except as noted above. Knee Strength Knee Manual Muscle Testing Right Reason Not Measured WFL Left Reason Not Measured WFL Ankle/Foot Strength Ankle and Foot Manual Muscle Testing Right Plantarflexion (S1) 3+ Fair+ Comments Generally WNL except PF above. Left Plantarflexion (S1) 3+ Fair+ Comments Generally WNL except PF above. PT-OP-Q Treatments Start: 07/12/19 16:28 Freq: Status: Active Protocol: Document 07/15/19 09:54 LRN (Rec: 07/15/19 10:34 LRN [id number]) Cardio Equipment Bicycle (Upright) Duration (Minutes) 10 Resistance 4 Seat Position 10 Other Try seat at 11 next visit Therapeutic Exercises Supine Exercises Hip AD stretch Supine Exercise Name Hip Adductors stretching f/b 10x active stretch Side bilateral Knee flex stretch Supine Exercise Name KTC knee flex stretch f/b 10x active stretch Side bilateral Reps/Minutes 6' Gait Training Gait Activity Heel strike Description Heel strike with gait to reduce excessive weight onto R LE. Device Used None Level of Assistance None Surface Level Comments Improved gait mechanics with normal heel strike. Self-Care/Home Management Treatment Education Patient Education Home Exercise Program Activities Self-Care/Home Management Activities Issued and reviewed HEP: Knee flex and Hip adductor stretching followed by active stretch. PT-OP-R Modalities Start: 07/12/19 16:28 Freq: Status: Active Protocol: Document 07/15/19 09:54 LRN (Rec: 07/15/19 10:34 LRN [id number]) Hot Pack/Cold Pack Treatment Cold Pack Location Espinoza knees Patient Position Hooklying Treatment Duration (minutes) 10 PT-OP-T Assessment and Plan Start: 07/12/19 16:28 Freq: Status: Active Protocol: Document 07/15/19 09:54 LRN (Rec: 07/15/19 10:34 LRN [id number]) Physical Therapy Assessment Assessment Summary Assessment Pt improved gait mechanics with training. Pt very tight hip muscles. Pt has poor core control with gait showing visible trunk sway. Physical Therapy Plan Frequency and Duration Frequency of Treatment 2x/Week Plan of Care Start Date 07/14/19 Plan of Care End Date 09/08/19 Next Visit Focus/Plan Next Note Type Treatment Note Next Visit Plan Start with LE cardio exercise bike (progress to gait on TM at inclines when appropriate), f/b stretches: hip adductors/ hamstring and knee flexion. Add strengthening: hip AD's and ankle PF, and active LE roll in/outs. Add balance training and pelvic shift/ rotation to limit hard heel strike with gait. Manual therapy as needed to improve patella and knee joint mechanics. Monitor for R meniscus injury. Stair, gait, posture training.
--- NOTE | 2019-07-19 12:10 | PT.OTN ---
Current Diagnoses Unilateral primary osteoarthritis, right knee (07/19/19) Unilateral primary osteoarthritis, left knee (07/19/19) Physical Therapy Treatment Note PT-OP-A Visit Information Start: 07/12/19 16:28 Freq: Status: Active Protocol: Document 07/19/19 11:14 LRN (Rec: 07/19/19 12:09 LRN [id number]) Out-Patient Physical Therapy Visit Information Visit Information Visit Type Treatment Note Visit Start Time 11:15 Visit Stop Time 12:10 Total Visit Minutes 55 Visit Number 3 Evaluation Information Evaluation Date 07/14/19 Precautions Precautions Neuropathy History of skin cancer Controlled blood pressure with use of Warfarin Hx of hip dislocation in an ABD position. PT-OP-B Current Condition Start: 07/12/19 16:28 Freq: Status: Active Protocol: Document 07/14/19 10:38 LRN (Rec: 07/14/19 13:37 LRN [id number]) Current Condition History of Current Condition Onset Date 10 yrs ago Current Complaints Progressively worsening of espinoza knee pain History of Current Condition Pt reports he has had X-rays indicating arthritis, but not severe enough for surgery. He has tried a strap knee brace that he noticed with use onset of hip problems (medial thigh pain). He reports being on Lipitor for 10 yrs and was told part of the pain in his legs was medication induced. He was changed to a non-statin medication and states some of the pain in his legs has decreased. He is limited in his ability to walk as fast as he used to and can't walk uneven ground (trails). He has pain mainly with transitions and with activity. Prior Treatments and Tests PT reports X-rays of both knees show arthrits of bone on bone. He has had a cortisone injection in his R medial knee that caused more pain. Treatment Goals Patient/Caregiver Goals Pt goal is to be able to walk better, return to walking trails and be able to have less pain overall. He understands he will not become painfree but would like to be able to transfer with less pain. Prior Functional Status Baseline Function- ADL's Independent Baseline Function- Mobility Independent Baseline Function- Gait Able to walk on uneven ground (trails, inclines) 1 yr ago. Baseline Function- Other Ambulates up/down stairs with reciprocal gait > 2 times, 6 months ago. Current Functional Impairments (Reported) Functional Limitations- ADL's Decreased ability to transfer sit to stand from regular height surface (uses hands). Decreased ability to transfer in/out of car (lifts legs into car). Functional Limitations- Mobility/Gait Limited tolerance for up/down stairs in sideways gait ~ 2 times. Limited ability to walk on unlevel ground (inclines, trails) Personal Factors Other Personal Factors That May Effect Arthritis Therapy/Recovery Neuropathy History of skin cancer Controlled blood pressure with use of Warfarin PT-OP-C Subjective Start: 07/12/19 16:28 Freq: Status: Active Protocol: Document 07/19/19 11:14 LRN (Rec: 07/19/19 12:09 LRN [id number]) OP-PT Subjective Patient Comments Patient Comments Notes he doesn't have to pull himself up the stairs, he is able to get up and walk better in the night and thinks he can get in/out of the car easier. Patient Reported Progress Improving PT-OP-F Manual Assessment Start: 07/12/19 16:28 Freq: Status: Active Protocol: Document 07/14/19 10:38 LRN (Rec: 07/14/19 13:37 LRN [id number]) Manual Assessments Soft Tissue Assessment Soft Tissue Mobility Assessment No palpable areas of tenderness around the knee joints. Tender at inner thigh with stretch. Joint Mobility Assessment Joint Mobility Assessment Pain in medial R knee with varus stress applied. PT-OP-G Mobility & Gait Start: 07/12/19 16:28 Freq: Status: Active Protocol: Document 07/14/19 10:38 LRN (Rec: 07/14/19 13:37 LRN [id number]) OP Mobility Evaluation Transfers Sit to Stand Difficulty with regular height chairs and standard toilet, requiring use of UE's to stand Floor Transfers Requires use of UE's to push into standing. Functional Movements Squats Difficulty due to espinoza knee pain OP Gait Assessment Gait Gait Assistance Required: Independent Able to Maintain Weight Bearing Status Yes During Gait Assistive Devices Assistive Device None Comments Gait Comments Gait speed is 20'/7.41 secs ( 10'/3.75 secs) = 2.7 ft/sec. Pt ambulates with excessive R trunk sway, heavy R heel strike, decreased R knee flex during toe off phase. Stair Climbing Evaluation Comments Stair Climbing Comments Pt notes pain with stair ambulation. PT-OP-J Posture/Palpation/Skin Start: 07/12/19 16:28 Freq: Status: Active Protocol: Document 07/14/19 10:38 LRN (Rec: 07/14/19 13:37 LRN [id number]) Posture Evaluation Comments Posture Comments Standing: Low R shoulder and scapula, varus of bilateral knees. PT-OP-K Range of Motion Start: 07/12/19 16:28 Freq: Status: Active Protocol: Document 07/14/19 10:38 LRN (Rec: 07/14/19 13:37 LRN [id number]) Hip Goniometric Range of Motion Hip Right Passive Testing Position Supine Straight Leg Raise 80 Abduction 10 Internal Rotation 30 External Rotation 20 Left Passive Testing Position Supine Straight Leg Raise 25 Abduction 20 Internal Rotation 25 External Rotation 20 Knee Goniometric Range of Motion Knee Right Knee ROM WFL Yes Flexion Active (degrees) 132 Extension Active (degrees) 0 Left Flexion Active (degrees) 132 Extension Active (degrees) 0 Ankle and Foot Goniometric Range of Motion Ankle and Foot Right Active Ankle/Foot ROM WFL Yes Left Active Ankle/Foot ROM WFL Yes PT-OP-L Special Tests Start: 07/12/19 16:28 Freq: Status: Active Protocol: Document 07/14/19 10:38 LRN (Rec: 07/14/19 13:37 LRN [id number]) Special Tests Knee Special Tests Varus- 25 Degrees Test Results Positive R knee Comments R knee: Pain in medial knee joint Patellar Grind Test Test Results Negative bilaterally PT-OP-M Strength Start: 07/12/19 16:28 Freq: Status: Active Protocol: Document 07/14/19 10:38 LRN (Rec: 07/14/19 13:37 LRN [id number]) Hip Strength Hip Manual Muscle Testing Right Adduction 3 Fair Comments Generally WNL except as noted above. Left Adduction 4 Good Reason Not Measured WFL Comments Generally WNL except as noted above. Knee Strength Knee Manual Muscle Testing Right Reason Not Measured WFL Left Reason Not Measured WFL Ankle/Foot Strength Ankle and Foot Manual Muscle Testing Right Plantarflexion (S1) 3+ Fair+ Comments Generally WNL except PF above. Left Plantarflexion (S1) 3+ Fair+ Comments Generally WNL except PF above. PT-OP-Q Treatments Start: 07/12/19 16:28 Freq: Status: Active Protocol: Document 07/19/19 11:14 LRN (Rec: 07/19/19 12:09 LRN [id number]) Cardio Equipment Bicycle (Upright) Duration (Minutes) 10 Resistance 4 Seat Position 10 Other Try seat at 11 next visit Therapeutic Exercises Supine Exercises Hamstring/neural stetch Supine Exercise Name Hamstring/LE neural stretch Side bilateral Reps/Minutes 4' BKFO stretch Supine Exercise Name Single & Espinoza BKFO stretch Side bilateral Reps/Minutes 60 Hold, f/b active stretch x 10. Comments Pain greater L than R with stretch Hip AD stretch Supine Exercise Name Hip Adductors stretching f/b 10x active stretch Side bilateral Knee flex stretch Supine Exercise Name KTC knee flex stretch f/b 10x active stretch Side bilateral Reps/Minutes 6' Comments Review needed, pt holding R at thigh, L at girard Sidelying Exercises Hip AD Sidelying Exercise Name Hip AD Side bilateral Reps/Minutes 10 x 2 Sitting Exercises Hip AD stretch Sitting Exercise Name Legs straight and abducted, f/ b active stretch Side bilateral Reps/Minutes 5 Comments Stretch f/b active stretch x 10 Self-Care/Home Management Treatment Education Patient Education Home Exercise Program Activities Self-Care/Home Management Activities Issue & reviewed HEP: Stretch to hip AD's and Hamstring; strengthening of hip AD's. PT-OP-R Modalities Start: 07/12/19 16:28 Freq: Status: Active Protocol: Document 07/19/19 11:14 LRN (Rec: 07/19/19 12:09 LRN [id number]) Hot Pack/Cold Pack Treatment Cold Pack Location Espinoza knees Patient Position Hooklying Treatment Duration (minutes) 10 PT-OP-T Assessment and Plan Start: 07/12/19 16:28 Freq: Status: Active Protocol: Document 07/19/19 11:14 LRN (Rec: 07/19/19 12:09 LRN [id number]) Physical Therapy Assessment Goals Five Impairment Lacks appropriate self care HEP. Director Of Marketing Operations Goal (LTG) Pt will be independent in a self care HEP. LTG Duration 09/08/19 (07/19/19: Progressing) Four Impairment Difficulty getting in/out of his car (low surface) due to espinoza knee pain. Director Of Marketing Operations Goal (LTG) Pt will be able to report getting in/out of a car with moderate or less difficulty per LEFS score. LTG Duration 08/25/19 Three Impairment Stair ambulation going down sideways due to bilateral knee pain. Director Of Marketing Operations Goal (LTG) Pt will be able to ambulate a flight of stairs with a normal gait pattern with a little bit to moderate difficulty. LTG Duration 08/25/19 Two Impairment Bilateral knee pain with incline ambulation. Penitentiary Goal (LTG) Pt will be able to ambulate 30 ' on unlevel ground and/or inclines (trails) using a hiking stick with tolerable pain of no greater than 3/10. LTG Duration 08/25/19 One Impairment Decreased bilateral hip mobility contributing to espinoza knee pain Short Term Goal (STG) Improve hip AB mobility to lessen hip AD pain with walking. STG Duration 08/01/19 Assessment Summary Assessment Pt demonstrates improved awareness of proper gait. Pt has fair to poor recall of HEP ; therefore review of new ex's is needed. Poor tolerance to positioning for Fig 4 stretch ; therefore modified for BKFO stretch. Physical Therapy Plan Frequency and Duration Frequency of Treatment 2x/Week Plan of Care Start Date 07/14/19 Plan of Care End Date 09/08/19 Next Visit Focus/Plan Next Note Type Treatment Note Next Visit Plan Start LE cardio exercise bike (progress to gait on TM at inclines when appropriate), f/ b review of new stretches: hip adductors/hamstring and knee flexion. Add strengthening: ankle PF, and active LE roll in/outs. Add balance training and pelvic shift/rotation to limit hard heel strike with gait. Manual therapy as needed to improve patella and knee joint mechanics. Monitor for R meniscus injury. Stair , gait, posture training.
--- NOTE | 2019-07-21 12:13 | PT.OTN ---
Current Diagnoses Unilateral primary osteoarthritis, right knee (07/21/19) Unilateral primary osteoarthritis, left knee (07/21/19) Physical Therapy Treatment Note PT-OP-A Visit Information Start: 07/12/19 16:28 Freq: Status: Active Protocol: Document 07/21/19 11:22 LRN (Rec: 07/21/19 12:13 LRN [id number]) Out-Patient Physical Therapy Visit Information Visit Information Visit Type Treatment Note Visit Start Time 11:22 Visit Stop Time 12:15 Total Visit Minutes 53 Visit Number 4 Evaluation Information Evaluation Date 07/14/19 Precautions Precautions Neuropathy History of skin cancer Controlled blood pressure with use of Warfarin Hx of hip dislocation in an ABD position. PT-OP-B Current Condition Start: 07/12/19 16:28 Freq: Status: Active Protocol: Document 07/14/19 10:38 LRN (Rec: 07/14/19 13:37 LRN [id number]) Current Condition History of Current Condition Onset Date 10 yrs ago Current Complaints Progressively worsening of espinoza knee pain History of Current Condition Pt reports he has had X-rays indicating arthritis, but not severe enough for surgery. He has tried a strap knee brace that he noticed with use onset of hip problems (medial thigh pain). He reports being on Lipitor for 10 yrs and was told part of the pain in his legs was medication induced. He was changed to a non-statin medication and states some of the pain in his legs has decreased. He is limited in his ability to walk as fast as he used to and can't walk uneven ground (trails). He has pain mainly with transitions and with activity. Prior Treatments and Tests PT reports X-rays of both knees show arthrits of bone on bone. He has had a cortisone injection in his R medial knee that caused more pain. Treatment Goals Patient/Caregiver Goals Pt goal is to be able to walk better, return to walking trails and be able to have less pain overall. He understands he will not become painfree but would like to be able to transfer with less pain. Prior Functional Status Baseline Function- ADL's Independent Baseline Function- Mobility Independent Baseline Function- Gait Able to walk on uneven ground (trails, inclines) 1 yr ago. Baseline Function- Other Ambulates up/down stairs with reciprocal gait > 2 times, 6 months ago. Current Functional Impairments (Reported) Functional Limitations- ADL's Decreased ability to transfer sit to stand from regular height surface (uses hands). Decreased ability to transfer in/out of car (lifts legs into car). Functional Limitations- Mobility/Gait Limited tolerance for up/down stairs in sideways gait ~ 2 times. Limited ability to walk on unlevel ground (inclines, trails) Personal Factors Other Personal Factors That May Effect Arthritis Therapy/Recovery Neuropathy History of skin cancer Controlled blood pressure with use of Warfarin PT-OP-C Subjective Start: 07/12/19 16:28 Freq: Status: Active Protocol: Document 07/21/19 11:22 LRN (Rec: 07/21/19 12:13 LRN [id number]) OP-PT Subjective Patient Comments Patient Comments States he always has knee pain with walking. Brought HEP to review. PT-OP-F Manual Assessment Start: 07/12/19 16:28 Freq: Status: Active Protocol: Document 07/14/19 10:38 LRN (Rec: 07/14/19 13:37 LRN [id number]) Manual Assessments Soft Tissue Assessment Soft Tissue Mobility Assessment No palpable areas of tenderness around the knee joints. Tender at inner thigh with stretch. Joint Mobility Assessment Joint Mobility Assessment Pain in medial R knee with varus stress applied. PT-OP-G Mobility & Gait Start: 07/12/19 16:28 Freq: Status: Active Protocol: Document 07/14/19 10:38 LRN (Rec: 07/14/19 13:37 LRN [id number]) OP Mobility Evaluation Transfers Sit to Stand Difficulty with regular height chairs and standard toilet, requiring use of UE's to stand Floor Transfers Requires use of UE's to push into standing. Functional Movements Squats Difficulty due to espinoza knee pain OP Gait Assessment Gait Gait Assistance Required: Independent Able to Maintain Weight Bearing Status Yes During Gait Assistive Devices Assistive Device None Comments Gait Comments Gait speed is 20'/7.41 secs ( 10'/3.75 secs) = 2.7 ft/sec. Pt ambulates with excessive R trunk sway, heavy R heel strike, decreased R knee flex during toe off phase. Stair Climbing Evaluation Comments Stair Climbing Comments Pt notes pain with stair ambulation. PT-OP-J Posture/Palpation/Skin Start: 07/12/19 16:28 Freq: Status: Active Protocol: Document 07/14/19 10:38 LRN (Rec: 07/14/19 13:37 LRN [id number]) Posture Evaluation Comments Posture Comments Standing: Low R shoulder and scapula, varus of bilateral knees. PT-OP-K Range of Motion Start: 07/12/19 16:28 Freq: Status: Active Protocol: Document 07/14/19 10:38 LRN (Rec: 07/14/19 13:37 LRN [id number]) Hip Goniometric Range of Motion Hip Right Passive Testing Position Supine Straight Leg Raise 80 Abduction 10 Internal Rotation 30 External Rotation 20 Left Passive Testing Position Supine Straight Leg Raise 25 Abduction 20 Internal Rotation 25 External Rotation 20 Knee Goniometric Range of Motion Knee Right Knee ROM WFL Yes Flexion Active (degrees) 132 Extension Active (degrees) 0 Left Flexion Active (degrees) 132 Extension Active (degrees) 0 Ankle and Foot Goniometric Range of Motion Ankle and Foot Right Active Ankle/Foot ROM WFL Yes Left Active Ankle/Foot ROM WFL Yes PT-OP-L Special Tests Start: 07/12/19 16:28 Freq: Status: Active Protocol: Document 07/14/19 10:38 LRN (Rec: 07/14/19 13:37 LRN [id number]) Special Tests Knee Special Tests Varus- 25 Degrees Test Results Positive R knee Comments R knee: Pain in medial knee joint Patellar Grind Test Test Results Negative bilaterally PT-OP-M Strength Start: 07/12/19 16:28 Freq: Status: Active Protocol: Document 07/14/19 10:38 LRN (Rec: 07/14/19 13:37 LRN [id number]) Hip Strength Hip Manual Muscle Testing Right Adduction 3 Fair Comments Generally WNL except as noted above. Left Adduction 4 Good Reason Not Measured WFL Comments Generally WNL except as noted above. Knee Strength Knee Manual Muscle Testing Right Reason Not Measured WFL Left Reason Not Measured WFL Ankle/Foot Strength Ankle and Foot Manual Muscle Testing Right Plantarflexion (S1) 3+ Fair+ Comments Generally WNL except PF above. Left Plantarflexion (S1) 3+ Fair+ Comments Generally WNL except PF above. PT-OP-Q Treatments Start: 07/12/19 16:28 Freq: Status: Active Protocol: Document 07/21/19 11:22 LRN (Rec: 07/21/19 12:13 LRN [id number]) Therapeutic Exercises Supine Exercises Deep breathing Supine Exercise Name Deep breathing training Reps/Minutes 3' LE Roll in/out with knees flexed Supine Exercise Name LE Roll in/out with knees flexed Side bilateral Resistance Lev 2 T-Band/Pillow Reps/Minutes 10x Comments Issued Lev 2 T-Band for home use. Hamstring/neural stetch Supine Exercise Name Hamstring/LE neural stretch Side bilateral Reps/Minutes 5' Comments Extra time for review and training BKFO stretch Supine Exercise Name Fig 4 stretch Side right Reps/Minutes 60 Hold, f/b active stretch x 10. Comments Held L dislocated side. Hip AD stretch Supine Exercise Name Hip Adductors stretching f/b 10x active stretch Side bilateral Knee flex stretch Supine Exercise Name KTC knee flex stretch f/b 10x active stretch Side bilateral Reps/Minutes 6' Comments Review needed, pt holding R at thigh, L at girard Sidelying Exercises Hip AD Sidelying Exercise Name Hip AD Side bilateral Reps/Minutes 10 x 2 Standing Exercises Sit to Stand Standing Exercise Name Sit to Stands Side bilateral Reps/Minutes 10x Self-Care/Home Management Treatment Education Patient Education Home Exercise Program Activities Self-Care/Home Management Activities Reviewed previously issued HEP . Issued and reviewed HEP: LE roll in/outs and written I/ S for sit to stands. Issued Lev 2 T-Band. PT-OP-R Modalities Start: 07/12/19 16:28 Freq: Status: Active Protocol: Document 07/19/19 11:14 LRN (Rec: 07/19/19 12:09 LRN [id number]) Hot Pack/Cold Pack Treatment Cold Pack Location Espinoza knees Patient Position Hooklying Treatment Duration (minutes) 10 PT-OP-T Assessment and Plan Start: 07/12/19 16:28 Freq: Status: Active Protocol: Document 07/21/19 11:22 LRN (Rec: 07/21/19 12:13 LRN [id number]) Physical Therapy Assessment Assessment Summary Assessment Pt needed review of HEP, further review may be needed. Review of new ex's probably will be needed. Physical Therapy Plan Frequency and Duration Frequency of Treatment 2x/Week Plan of Care Start Date 07/14/19 Plan of Care End Date 09/08/19 Next Visit Focus/Plan Next Note Type Treatment Note Next Visit Plan Start LE cardio exercise bike or TM with inclines. review of new ex's: sit to stands and active LE roll in/outs. Add ankle PF ex's, balance training, and pelvic shift/ rotation to limit hard heel strike with gait. Manual therapy as needed to improve patella and knee joint mechanics. Monitor for R meniscus injury. Stair, gait, posture training.
--- NOTE | 2019-07-21 12:19 | PT.OTN ---
Current Diagnoses Unilateral primary osteoarthritis, right knee (07/21/19) Unilateral primary osteoarthritis, left knee (07/21/19) Physical Therapy Treatment Note PT-OP-A Visit Information Start: 07/12/19 16:28 Freq: Status: Active Protocol: Document 07/21/19 11:22 LRN (Rec: 07/21/19 12:13 LRN [id number]) Out-Patient Physical Therapy Visit Information Visit Information Visit Type Treatment Note Visit Start Time 11:22 Visit Stop Time 12:15 Total Visit Minutes 53 Visit Number 4 Evaluation Information Evaluation Date 07/14/19 Precautions Precautions Neuropathy History of skin cancer Controlled blood pressure with use of Warfarin Hx of hip dislocation in an ABD position. PT-OP-B Current Condition Start: 07/12/19 16:28 Freq: Status: Active Protocol: Document 07/14/19 10:38 LRN (Rec: 07/14/19 13:37 LRN [id number]) Current Condition History of Current Condition Onset Date 10 yrs ago Current Complaints Progressively worsening of espinoza knee pain History of Current Condition Pt reports he has had X-rays indicating arthritis, but not severe enough for surgery. He has tried a strap knee brace that he noticed with use onset of hip problems (medial thigh pain). He reports being on Lipitor for 10 yrs and was told part of the pain in his legs was medication induced. He was changed to a non-statin medication and states some of the pain in his legs has decreased. He is limited in his ability to walk as fast as he used to and can't walk uneven ground (trails). He has pain mainly with transitions and with activity. Prior Treatments and Tests PT reports X-rays of both knees show arthrits of bone on bone. He has had a cortisone injection in his R medial knee that caused more pain. Treatment Goals Patient/Caregiver Goals Pt goal is to be able to walk better, return to walking trails and be able to have less pain overall. He understands he will not become painfree but would like to be able to transfer with less pain. Prior Functional Status Baseline Function- ADL's Independent Baseline Function- Mobility Independent Baseline Function- Gait Able to walk on uneven ground (trails, inclines) 1 yr ago. Baseline Function- Other Ambulates up/down stairs with reciprocal gait > 2 times, 6 months ago. Current Functional Impairments (Reported) Functional Limitations- ADL's Decreased ability to transfer sit to stand from regular height surface (uses hands). Decreased ability to transfer in/out of car (lifts legs into car). Functional Limitations- Mobility/Gait Limited tolerance for up/down stairs in sideways gait ~ 2 times. Limited ability to walk on unlevel ground (inclines, trails) Personal Factors Other Personal Factors That May Effect Arthritis Therapy/Recovery Neuropathy History of skin cancer Controlled blood pressure with use of Warfarin PT-OP-C Subjective Start: 07/12/19 16:28 Freq: Status: Active Protocol: Document 07/21/19 11:22 LRN (Rec: 07/21/19 12:13 LRN [id number]) OP-PT Subjective Patient Comments Patient Comments States he always has knee pain with walking. Brought HEP to review. PT-OP-F Manual Assessment Start: 07/12/19 16:28 Freq: Status: Active Protocol: Document 07/14/19 10:38 LRN (Rec: 07/14/19 13:37 LRN [id number]) Manual Assessments Soft Tissue Assessment Soft Tissue Mobility Assessment No palpable areas of tenderness around the knee joints. Tender at inner thigh with stretch. Joint Mobility Assessment Joint Mobility Assessment Pain in medial R knee with varus stress applied. PT-OP-G Mobility & Gait Start: 07/12/19 16:28 Freq: Status: Active Protocol: Document 07/14/19 10:38 LRN (Rec: 07/14/19 13:37 LRN [id number]) OP Mobility Evaluation Transfers Sit to Stand Difficulty with regular height chairs and standard toilet, requiring use of UE's to stand Floor Transfers Requires use of UE's to push into standing. Functional Movements Squats Difficulty due to espinoza knee pain OP Gait Assessment Gait Gait Assistance Required: Independent Able to Maintain Weight Bearing Status Yes During Gait Assistive Devices Assistive Device None Comments Gait Comments Gait speed is 20'/7.41 secs ( 10'/3.75 secs) = 2.7 ft/sec. Pt ambulates with excessive R trunk sway, heavy R heel strike, decreased R knee flex during toe off phase. Stair Climbing Evaluation Comments Stair Climbing Comments Pt notes pain with stair ambulation. PT-OP-J Posture/Palpation/Skin Start: 07/12/19 16:28 Freq: Status: Active Protocol: Document 07/14/19 10:38 LRN (Rec: 07/14/19 13:37 LRN [id number]) Posture Evaluation Comments Posture Comments Standing: Low R shoulder and scapula, varus of bilateral knees. PT-OP-K Range of Motion Start: 07/12/19 16:28 Freq: Status: Active Protocol: Document 07/14/19 10:38 LRN (Rec: 07/14/19 13:37 LRN [id number]) Hip Goniometric Range of Motion Hip Right Passive Testing Position Supine Straight Leg Raise 80 Abduction 10 Internal Rotation 30 External Rotation 20 Left Passive Testing Position Supine Straight Leg Raise 25 Abduction 20 Internal Rotation 25 External Rotation 20 Knee Goniometric Range of Motion Knee Right Knee ROM WFL Yes Flexion Active (degrees) 132 Extension Active (degrees) 0 Left Flexion Active (degrees) 132 Extension Active (degrees) 0 Ankle and Foot Goniometric Range of Motion Ankle and Foot Right Active Ankle/Foot ROM WFL Yes Left Active Ankle/Foot ROM WFL Yes PT-OP-L Special Tests Start: 07/12/19 16:28 Freq: Status: Active Protocol: Document 07/14/19 10:38 LRN (Rec: 07/14/19 13:37 LRN [id number]) Special Tests Knee Special Tests Varus- 25 Degrees Test Results Positive R knee Comments R knee: Pain in medial knee joint Patellar Grind Test Test Results Negative bilaterally PT-OP-M Strength Start: 07/12/19 16:28 Freq: Status: Active Protocol: Document 07/14/19 10:38 LRN (Rec: 07/14/19 13:37 LRN [id number]) Hip Strength Hip Manual Muscle Testing Right Adduction 3 Fair Comments Generally WNL except as noted above. Left Adduction 4 Good Reason Not Measured WFL Comments Generally WNL except as noted above. Knee Strength Knee Manual Muscle Testing Right Reason Not Measured WFL Left Reason Not Measured WFL Ankle/Foot Strength Ankle and Foot Manual Muscle Testing Right Plantarflexion (S1) 3+ Fair+ Comments Generally WNL except PF above. Left Plantarflexion (S1) 3+ Fair+ Comments Generally WNL except PF above. PT-OP-Q Treatments Start: 07/12/19 16:28 Freq: Status: Active Protocol: Document 07/21/19 11:22 LRN (Rec: 07/21/19 12:13 LRN [id number]) Cardio Equipment Treadmill Duration (Minutes) 10 Speed 1.2 Incline 0 Other Tm 5' x 2, for gait pattern and normalizing speed of gait from 0.9 to 1.2 Therapeutic Exercises Supine Exercises Deep breathing Supine Exercise Name Deep breathing training Reps/Minutes 3' LE Roll in/out with knees flexed Supine Exercise Name LE Roll in/out with knees flexed Side bilateral Resistance Lev 2 T-Band/Pillow Reps/Minutes 10x Comments Issued Lev 2 T-Band for home use. Hamstring/neural stetch Supine Exercise Name Hamstring/LE neural stretch Side bilateral Reps/Minutes 5' Comments Extra time for review and training BKFO stretch Supine Exercise Name Fig 4 stretch Side right Reps/Minutes 60 Hold, f/b active stretch x 10. Comments Held L dislocated side. Hip AD stretch Supine Exercise Name Hip Adductors stretching f/b 10x active stretch Side bilateral Knee flex stretch Supine Exercise Name KTC knee flex stretch f/b 10x active stretch Side bilateral Reps/Minutes 6' Comments Review needed, pt holding R at thigh, L at girard Sidelying Exercises Hip AD Sidelying Exercise Name Hip AD Side bilateral Reps/Minutes 10 x 2 Standing Exercises Sit to Stand Standing Exercise Name Sit to Stands Side bilateral Reps/Minutes 10x Self-Care/Home Management Treatment Education Patient Education Home Exercise Program Activities Self-Care/Home Management Activities Reviewed previously issued HEP . Issued and reviewed HEP: LE roll in/outs and written I/ S for sit to stands. Issued Lev 2 T-Band. PT-OP-R Modalities Start: 07/12/19 16:28 Freq: Status: Active Protocol: Document 07/21/19 11:22 LRN (Rec: 07/21/19 12:17 LRN [id number]) Hot Pack/Cold Pack Treatment Cold Pack Location Espinoza knees Patient Position Hooklying Treatment Duration (minutes) 10 PT-OP-T Assessment and Plan Start: 07/12/19 16:28 Freq: Status: Active Protocol: Document 07/21/19 11:22 LRN (Rec: 07/21/19 12:13 LRN [id number]) Physical Therapy Assessment Assessment Summary Assessment Pt needed review of HEP, further review may be needed. Review of new ex's probably will be needed. Physical Therapy Plan Frequency and Duration Frequency of Treatment 2x/Week Plan of Care Start Date 07/14/19 Plan of Care End Date 09/08/19 Next Visit Focus/Plan Next Note Type Treatment Note Next Visit Plan Start LE cardio exercise bike or TM with inclines. review of new ex's: sit to stands and active LE roll in/outs. Add ankle PF ex's, balance training, and pelvic shift/ rotation to limit hard heel strike with gait. Manual therapy as needed to improve patella and knee joint mechanics. Monitor for R meniscus injury. Stair, gait, posture training.
--- NOTE | 2019-07-26 12:22 | PT.OTN ---
Current Diagnoses Unilateral primary osteoarthritis, right knee (07/26/19) Unilateral primary osteoarthritis, left knee (07/26/19) Physical Therapy Treatment Note PT-OP-A Visit Information Start: 07/12/19 16:28 Freq: Status: Active Protocol: Document 07/26/19 11:20 LRN (Rec: 07/26/19 12:18 LRN [id number]) Out-Patient Physical Therapy Visit Information Visit Information Visit Type Treatment Note Visit Start Time 11:20 Visit Stop Time 12:17 Total Visit Minutes 57 Visit Number 5 Number of [employer] OF [employer] Visits 0 Evaluation Information Evaluation Date 07/14/19 Precautions Precautions Neuropathy History of skin cancer Controlled blood pressure with use of Warfarin Hx of hip dislocation in an ABD position. PT-OP-B Current Condition Start: 07/12/19 16:28 Freq: Status: Active Protocol: Document 07/14/19 10:38 LRN (Rec: 07/14/19 13:37 LRN [id number]) Current Condition History of Current Condition Onset Date 10 yrs ago Current Complaints Progressively worsening of espinoza knee pain History of Current Condition Pt reports he has had X-rays indicating arthritis, but not severe enough for surgery. He has tried a strap knee brace that he noticed with use onset of hip problems (medial thigh pain). He reports being on Lipitor for 10 yrs and was told part of the pain in his legs was medication induced. He was changed to a non-statin medication and states some of the pain in his legs has decreased. He is limited in his ability to walk as fast as he used to and can't walk uneven ground (trails). He has pain mainly with transitions and with activity. Prior Treatments and Tests PT reports X-rays of both knees show arthrits of bone on bone. He has had a cortisone injection in his R medial knee that caused more pain. Treatment Goals Patient/Caregiver Goals Pt goal is to be able to walk better, return to walking trails and be able to have less pain overall. He understands he will not become painfree but would like to be able to transfer with less pain. Prior Functional Status Baseline Function- ADL's Independent Baseline Function- Mobility Independent Baseline Function- Gait Able to walk on uneven ground (trails, inclines) 1 yr ago. Baseline Function- Other Ambulates up/down stairs with reciprocal gait > 2 times, 6 months ago. Current Functional Impairments (Reported) Functional Limitations- ADL's Decreased ability to transfer sit to stand from regular height surface (uses hands). Decreased ability to transfer in/out of car (lifts legs into car). Functional Limitations- Mobility/Gait Limited tolerance for up/down stairs in sideways gait ~ 2 times. Limited ability to walk on unlevel ground (inclines, trails) Personal Factors Other Personal Factors That May Effect Arthritis Therapy/Recovery Neuropathy History of skin cancer Controlled blood pressure with use of Warfarin PT-OP-C Subjective Start: 07/12/19 16:28 Freq: Status: Active Protocol: Document 07/26/19 11:20 LRN (Rec: 07/26/19 12:18 LRN [id number]) OP-PT Subjective Patient Comments Patient Comments States he has been exercising, started out 45', now can do the exercises in 30'. PT-OP-F Manual Assessment Start: 07/12/19 16:28 Freq: Status: Active Protocol: Document 07/14/19 10:38 LRN (Rec: 07/14/19 13:37 LRN [id number]) Manual Assessments Soft Tissue Assessment Soft Tissue Mobility Assessment No palpable areas of tenderness around the knee joints. Tender at inner thigh with stretch. Joint Mobility Assessment Joint Mobility Assessment Pain in medial R knee with varus stress applied. PT-OP-G Mobility & Gait Start: 07/12/19 16:28 Freq: Status: Active Protocol: Document 07/14/19 10:38 LRN (Rec: 07/14/19 13:37 LRN [id number]) OP Mobility Evaluation Transfers Sit to Stand Difficulty with regular height chairs and standard toilet, requiring use of UE's to stand Floor Transfers Requires use of UE's to push into standing. Functional Movements Squats Difficulty due to espinoza knee pain OP Gait Assessment Gait Gait Assistance Required: Independent Able to Maintain Weight Bearing Status Yes During Gait Assistive Devices Assistive Device None Comments Gait Comments Gait speed is 20'/7.41 secs ( 10'/3.75 secs) = 2.7 ft/sec. Pt ambulates with excessive R trunk sway, heavy R heel strike, decreased R knee flex during toe off phase. Stair Climbing Evaluation Comments Stair Climbing Comments Pt notes pain with stair ambulation. PT-OP-J Posture/Palpation/Skin Start: 07/12/19 16:28 Freq: Status: Active Protocol: Document 07/14/19 10:38 LRN (Rec: 07/14/19 13:37 LRN [id number]) Posture Evaluation Comments Posture Comments Standing: Low R shoulder and scapula, varus of bilateral knees. PT-OP-K Range of Motion Start: 07/12/19 16:28 Freq: Status: Active Protocol: Document 07/14/19 10:38 LRN (Rec: 07/14/19 13:37 LRN [id number]) Hip Goniometric Range of Motion Hip Right Passive Testing Position Supine Straight Leg Raise 80 Abduction 10 Internal Rotation 30 External Rotation 20 Left Passive Testing Position Supine Straight Leg Raise 25 Abduction 20 Internal Rotation 25 External Rotation 20 Knee Goniometric Range of Motion Knee Right Knee ROM WFL Yes Flexion Active (degrees) 132 Extension Active (degrees) 0 Left Flexion Active (degrees) 132 Extension Active (degrees) 0 Ankle and Foot Goniometric Range of Motion Ankle and Foot Right Active Ankle/Foot ROM WFL Yes Left Active Ankle/Foot ROM WFL Yes PT-OP-L Special Tests Start: 07/12/19 16:28 Freq: Status: Active Protocol: Document 07/14/19 10:38 LRN (Rec: 07/14/19 13:37 LRN [id number]) Special Tests Knee Special Tests Varus- 25 Degrees Test Results Positive R knee Comments R knee: Pain in medial knee joint Patellar Grind Test Test Results Negative bilaterally PT-OP-M Strength Start: 07/12/19 16:28 Freq: Status: Active Protocol: Document 07/14/19 10:38 LRN (Rec: 07/14/19 13:37 LRN [id number]) Hip Strength Hip Manual Muscle Testing Right Adduction 3 Fair Comments Generally WNL except as noted above. Left Adduction 4 Good Reason Not Measured WFL Comments Generally WNL except as noted above. Knee Strength Knee Manual Muscle Testing Right Reason Not Measured WFL Left Reason Not Measured WFL Ankle/Foot Strength Ankle and Foot Manual Muscle Testing Right Plantarflexion (S1) 3+ Fair+ Comments Generally WNL except PF above. Left Plantarflexion (S1) 3+ Fair+ Comments Generally WNL except PF above. PT-OP-Q Treatments Start: 07/12/19 16:28 Freq: Status: Active Protocol: Document 07/26/19 11:20 LRN (Rec: 07/26/19 12:18 LRN [id number]) Cardio Equipment Treadmill Duration (Minutes) 10 Speed 1.7 Incline 0 Other Increased speed 1.2 to 1.7 Therapeutic Exercises Supine Exercises LE Roll in/out with knees flexed Supine Exercise Name LE Roll in/out with knees straight Side bilateral Resistance Lev 2 T-Band/Pillow Reps/Minutes 10x Comments Issued Lev 2 T-Band for home use. Hamstring/neural stetch Supine Exercise Name Hamstring/LE neural stretch Side bilateral Reps/Minutes 5' Comments Extra time for review BKFO stretch Supine Exercise Name Fig 4 stretch Side right Reps/Minutes 60 Hold, f/b active stretch x 10. Comments Held L dislocated side. Hip AD stretch Supine Exercise Name Hip Adductors stretching f/b 10x active stretch Side bilateral Reps/Minutes 2 sets Standing Exercises Stairs Standing Exercise Name Up/Down 6 and 4 steps Side bilateral Equipment Used Stairs Comments With and without railing. Toe Raises Standing Exercise Name Toe Raises: Feet inward, forward, outward Side bilateral Reps/Minutes 10 x each Heel raises Standing Exercise Name Heel Raises: Feet inward, forward, outward Side bilateral Reps/Minutes 10 x each Sit to Stand Standing Exercise Name Sit to Stands Side bilateral Reps/Minutes 10x Self-Care/Home Management Treatment Education Patient Education Home Exercise Program Activities Self-Care/Home Management Activities Review of pt's balance ex's: March and hold and SLS. PT-OP-R Modalities Start: 07/12/19 16:28 Freq: Status: Active Protocol: Document 07/26/19 11:20 LRN (Rec: 07/26/19 12:19 LRN [id number]) Hot Pack/Cold Pack Treatment Cold Pack Location Espinoza knees Patient Position Hooklying Treatment Duration (minutes) 10 PT-OP-T Assessment and Plan Start: 07/12/19 16:28 Freq: Status: Active Protocol: Document 07/26/19 11:20 LRN (Rec: 07/26/19 12:18 LRN [id number]) Physical Therapy Assessment Assessment Summary Assessment Pt is able to ambulate stairs with a normal gait pattern. He is reporting greater ease of mobility. He conts to have difficulty with getting into his low car. Further therapy to improve car transfer ability and walking on unlevel ground safely is needed. Physical Therapy Plan Frequency and Duration Frequency of Treatment Possible DC or 2x/wk Plan of Care Start Date 07/14/19 Plan of Care End Date 09/08/19 Therapeutic Interventions Therapeutic Interventions Balance Training,Gait Training ,Home Exercise Program,Joint Mobilizations,Manual Therapy, Patient/Caregiver Education, Self-Care/Home Management,Soft Tissue Mobilization,Taping, Therapeutic Activities, Therapeutic Exercises Modalities Cold Pack/Ice Massage,Electric Stimulation,Hot Packs Next Visit Focus/Plan Next Note Type Treatment Note Next Visit Plan Possible DC to HEP. Pt to contact MD to request continuation of therapy by signing off on POC. If continuing therapy, start LE cardio TM with inclines for trail hikes. Add HEP handouts for ankle PF ex's, balance training. Review pelvic shift /rotation to limit hard heel strike with gait. Manual therapy as needed to improve patella and knee joint mechanics. Monitor for R meniscus injury. Cont monitoring ability with stairs and gait. Assess need for posture training.
--- NOTE | 2019-07-26 17:53 | PT-OP ANOTE ---
Per telephone conversation the pt reports his MD signed the POC and faxed it back to the clinic. MD is agreeable to the pt continuing therapy beyond 6 visits.
--- NOTE | 2019-07-28 15:17 | PT.OTN ---
Current Diagnoses Unilateral primary osteoarthritis, right knee (07/28/19) Unilateral primary osteoarthritis, left knee (07/28/19) Physical Therapy Treatment Note PT-OP-A Visit Information Start: 07/12/19 16:28 Freq: Status: Active Protocol: Document 07/28/19 14:34 LR (Rec: 07/28/19 15:17 [facility] [id number]) Out-Patient Physical Therapy Visit Information Visit Information Visit Type Treatment Note Visit Start Time 14:32 Visit Stop Time 15:20 Total Visit Minutes 48 Visit Number 6 Number of ANATOMIC PATHOLOGIST Visits 0 PT-OP-B Current Condition Start: 07/12/19 16:28 Freq: Status: Active Protocol: Document 07/14/19 10:38 LRN (Rec: 07/14/19 13:37 LRN [id number]) Current Condition History of Current Condition Onset Date 10 yrs ago Current Complaints Progressively worsening of espinoza knee pain History of Current Condition Pt reports he has had X-rays indicating arthritis, but not severe enough for surgery. He has tried a strap knee brace that he noticed with use onset of hip problems (medial thigh pain). He reports being on Lipitor for 10 yrs and was told part of the pain in his legs was medication induced. He was changed to a non-statin medication and states some of the pain in his legs has decreased. He is limited in his ability to walk as fast as he used to and can't walk uneven ground (trails). He has pain mainly with transitions and with activity. Prior Treatments and Tests PT reports X-rays of both knees show arthrits of bone on bone. He has had a cortisone injection in his R medial knee that caused more pain. Treatment Goals Patient/Caregiver Goals Pt goal is to be able to walk better, return to walking trails and be able to have less pain overall. He understands he will not become painfree but would like to be able to transfer with less pain. Prior Functional Status Baseline Function- ADL's Independent Baseline Function- Mobility Independent Baseline Function- Gait Able to walk on uneven ground (trails, inclines) 1 yr ago. Baseline Function- Other Ambulates up/down stairs with reciprocal gait > 2 times, 6 months ago. Current Functional Impairments (Reported) Functional Limitations- ADL's Decreased ability to transfer sit to stand from regular height surface (uses hands). Decreased ability to transfer in/out of car (lifts legs into car). Functional Limitations- Mobility/Gait Limited tolerance for up/down stairs in sideways gait ~ 2 times. Limited ability to walk on unlevel ground (inclines, trails) Personal Factors Other Personal Factors That May Effect Arthritis Therapy/Recovery Neuropathy History of skin cancer Controlled blood pressure with use of Warfarin PT-OP-C Subjective Start: 07/12/19 16:28 Freq: Status: Active Protocol: Document 07/28/19 14:34 LR (Rec: 07/28/19 15:17 LR [id number]) OP-PT Subjective Patient Comments Patient Comments Reports knees are a little sore today. compliance w/ HEP Patient Reported Progress Improving PT-OP-F Manual Assessment Start: 07/12/19 16:28 Freq: Status: Active Protocol: Document 07/14/19 10:38 LRN (Rec: 07/14/19 13:37 LRN [id number]) Manual Assessments Soft Tissue Assessment Soft Tissue Mobility Assessment No palpable areas of tenderness around the knee joints. Tender at inner thigh with stretch. Joint Mobility Assessment Joint Mobility Assessment Pain in medial R knee with varus stress applied. PT-OP-G Mobility & Gait Start: 07/12/19 16:28 Freq: Status: Active Protocol: Document 07/14/19 10:38 LRN (Rec: 07/14/19 13:37 LRN [id number]) OP Mobility Evaluation Transfers Sit to Stand Difficulty with regular height chairs and standard toilet, requiring use of UE's to stand Floor Transfers Requires use of UE's to push into standing. Functional Movements Squats Difficulty due to espinoza knee pain OP Gait Assessment Gait Gait Assistance Required: Independent Able to Maintain Weight Bearing Status Yes During Gait Assistive Devices Assistive Device None Comments Gait Comments Gait speed is 20'/7.41 secs ( 10'/3.75 secs) = 2.7 ft/sec. Pt ambulates with excessive R trunk sway, heavy R heel strike, decreased R knee flex during toe off phase. Stair Climbing Evaluation Comments Stair Climbing Comments Pt notes pain with stair ambulation. PT-OP-J Posture/Palpation/Skin Start: 07/12/19 16:28 Freq: Status: Active Protocol: Document 07/14/19 10:38 LRN (Rec: 07/14/19 13:37 LR [id number]) Posture Evaluation Comments Posture Comments Standing: Low R shoulder and scapula, varus of bilateral knees. PT-OP-K Range of Motion Start: 07/12/19 16:28 Freq: Status: Active Protocol: Document 07/14/19 10:38 LRN (Rec: 07/14/19 13:37 LRN [id number]) Hip Goniometric Range of Motion Hip Right Passive Testing Position Supine Straight Leg Raise 80 Abduction 10 Internal Rotation 30 External Rotation 20 Left Passive Testing Position Supine Straight Leg Raise 25 Abduction 20 Internal Rotation 25 External Rotation 20 Knee Goniometric Range of Motion Knee Right Knee ROM WFL Yes Flexion Active (degrees) 132 Extension Active (degrees) 0 Left Flexion Active (degrees) 132 Extension Active (degrees) 0 Ankle and Foot Goniometric Range of Motion Ankle and Foot Right Active Ankle/Foot ROM WFL Yes Left Active Ankle/Foot ROM WFL Yes PT-OP-L Special Tests Start: 07/12/19 16:28 Freq: Status: Active Protocol: Document 07/14/19 10:38 LRN (Rec: 07/14/19 13:37 LRN [id number]) Special Tests Knee Special Tests Varus- 25 Degrees Test Results Positive R knee Comments R knee: Pain in medial knee joint Patellar Grind Test Test Results Negative bilaterally PT-OP-M Strength Start: 07/12/19 16:28 Freq: Status: Active Protocol: Document 07/14/19 10:38 LRN (Rec: 07/14/19 13:37 LRN [id number]) Hip Strength Hip Manual Muscle Testing Right Adduction 3 Fair Comments Generally WNL except as noted above. Left Adduction 4 Good Reason Not Measured WFL Comments Generally WNL except as noted above. Knee Strength Knee Manual Muscle Testing Right Reason Not Measured WFL Left Reason Not Measured WFL Ankle/Foot Strength Ankle and Foot Manual Muscle Testing Right Plantarflexion (S1) 3+ Fair+ Comments Generally WNL except PF above. Left Plantarflexion (S1) 3+ Fair+ Comments Generally WNL except PF above. PT-OP-Q Treatments Start: 07/12/19 16:28 Freq: Status: Active Protocol: Document 07/28/19 14:34 LR (Rec: 07/28/19 15:17 [facility] [id number]) Cardio Equipment Treadmill Duration (Minutes) 10 Speed 1.7 Incline 0-2 Other Increased speed 1.4 to 1.6 Therapeutic Exercises Supine Exercises figure 4 Side bilateral Reps/Minutes 30 sec Comments comfortable range Standing Exercises Stairs Standing Exercise Name Up/Down 6 and 4 steps Side bilateral Equipment Used Stairs Comments With and without railing. Sit to Stand Standing Exercise Name Sit to Stands Side bilateral Reps/Minutes 10x Manual Therapy Treatment Soft Tissue Mobilization patellar tendon Body Location B Mobilization Type Strumming ITB Body Location B Mobilization Type Strumming Joint Mobilizations TF Joint B Direction AP on femur FM PF Joint B Direction sup, inf, med PT-OP-R Modalities Start: 07/12/19 16:28 Freq: Status: Active Protocol: Document 07/28/19 14:34 [facility] (Rec: 07/28/19 15:17 [facility] [id number]) Hot Pack/Cold Pack Treatment Cold Pack Location Espinoza knees Patient Position Hooklying Treatment Duration (minutes) 10 PT-OP-T Assessment and Plan Start: 07/12/19 16:28 Freq: Status: Active Protocol: Document 07/28/19 14:34 [facility] (Rec: 07/28/19 15:17 [facility] [id number]) Physical Therapy Assessment Assessment Summary Assessment Pt is improving with cueing with descending stairs. He feels like he is doing well with his exercises and is continueing to improve. He had improved Passive and active ext on R after manual and improved active ext without pain on L with improved ROM B passively and actively Physical Therapy Plan Frequency and Duration Frequency of Treatment 2x/Week Plan of Care Start Date 07/14/19 Plan of Care End Date 09/08/19 Next Visit Focus/Plan Next Note Type Treatment Note Next Visit Plan Add HEP handouts for ankle PF ex's, balance training. Review pelvic shift/rotation to limit hard heel strike with gait. Manual therapy as needed to improve patella and knee joint mechanics. Monitor for R meniscus injury. Cont monitoring ability with stairs and gait. Assess need for posture training.
--- NOTE | 2019-08-05 15:01 | PT.OTN ---
Current Diagnoses Unilateral primary osteoarthritis, right knee (08/05/19) Unilateral primary osteoarthritis, left knee (08/05/19) Physical Therapy Treatment Note PT-OP-A Visit Information Start: 07/12/19 16:28 Freq: Status: Active Protocol: Document 08/05/19 12:46 LRN (Rec: 08/05/19 13:34 LRN [id number]) Out-Patient Physical Therapy Visit Information Visit Information Visit Type Treatment Note Visit Start Time 12:46 Visit Stop Time 13:37 Total Visit Minutes 51 Visit Number 8 Number of NUT PICKER Visits 0 Evaluation Information Evaluation Date 07/14/19 Precautions Precautions Neuropathy History of skin cancer Controlled blood pressure with use of Warfarin Hx of hip dislocation in an ABD position. PT-OP-B Current Condition Start: 07/12/19 16:28 Freq: Status: Active Protocol: Document 07/14/19 10:38 LRN (Rec: 07/14/19 13:37 LRN [id number]) Current Condition History of Current Condition Onset Date 10 yrs ago Current Complaints Progressively worsening of espinoza knee pain History of Current Condition Pt reports he has had X-rays indicating arthritis, but not severe enough for surgery. He has tried a strap knee brace that he noticed with use onset of hip problems (medial thigh pain). He reports being on Lipitor for 10 yrs and was told part of the pain in his legs was medication induced. He was changed to a non-statin medication and states some of the pain in his legs has decreased. He is limited in his ability to walk as fast as he used to and can't walk uneven ground (trails). He has pain mainly with transitions and with activity. Prior Treatments and Tests PT reports X-rays of both knees show arthrits of bone on bone. He has had a cortisone injection in his R medial knee that caused more pain. Treatment Goals Patient/Caregiver Goals Pt goal is to be able to walk better, return to walking trails and be able to have less pain overall. He understands he will not become painfree but would like to be able to transfer with less pain. Prior Functional Status Baseline Function- ADL's Independent Baseline Function- Mobility Independent Baseline Function- Gait Able to walk on uneven ground (trails, inclines) 1 yr ago. Baseline Function- Other Ambulates up/down stairs with reciprocal gait > 2 times, 6 months ago. Current Functional Impairments (Reported) Functional Limitations- ADL's Decreased ability to transfer sit to stand from regular height surface (uses hands). Decreased ability to transfer in/out of car (lifts legs into car). Functional Limitations- Mobility/Gait Limited tolerance for up/down stairs in sideways gait ~ 2 times. Limited ability to walk on unlevel ground (inclines, trails) Personal Factors Other Personal Factors That May Effect Arthritis Therapy/Recovery Neuropathy History of skin cancer Controlled blood pressure with use of Warfarin PT-OP-C Subjective Start: 07/12/19 16:28 Freq: Status: Active Protocol: Document 08/05/19 12:46 LRN (Rec: 08/05/19 13:34 LRN [id number]) OP-PT Subjective Patient Comments Patient Comments States he did do a 20' one direction hike and had pain rated 2/10, coming back down). Going up without pain. States he can now lift his leg in the shower and wasn't able to do before. He feels he is 50-60% better. [place] stairs [place] for the 1st time (normally used stairs) with knee pain and had to pull self up. Going up stairs at home is easy, and is now able to ambulate stairs at home with normal gait. Patient Reported Progress Improving PT-OP-F Manual Assessment Start: 07/12/19 16:28 Freq: Status: Active Protocol: Document 07/14/19 10:38 LRN (Rec: 07/14/19 13:37 LRN [id number]) Manual Assessments Soft Tissue Assessment Soft Tissue Mobility Assessment No palpable areas of tenderness around the knee joints. Tender at inner thigh with stretch. Joint Mobility Assessment Joint Mobility Assessment Pain in medial R knee with varus stress applied. PT-OP-G Mobility & Gait Start: 07/12/19 16:28 Freq: Status: Active Protocol: Document 08/02/19 12:47 LRN (Rec: 08/02/19 15:22 LRN [id number]) Stair Climbing Evaluation Evaluation Level of Assist On Stairs Independent Technique/Endurance Stair Climbing Direction Ascend and Descend Stair Climbing Technique Step Over Step Number of Steps Climbed 4 Stair Climbing Set # Repetitions (reps) 1 Comments Stair Climbing Comments No pain. Railing going down on L side, no rail going up steps. PT-OP-J Posture/Palpation/Skin Start: 07/12/19 16:28 Freq: Status: Active Protocol: Document 07/14/19 10:38 LRN (Rec: 07/14/19 13:37 LRN [id number]) Posture Evaluation Comments Posture Comments Standing: Low R shoulder and scapula, varus of bilateral knees. PT-OP-K Range of Motion Start: 07/12/19 16:28 Freq: Status: Active Protocol: Document 08/02/19 12:47 LRN (Rec: 08/02/19 15:20 LRN [id number]) Hip Goniometric Range of Motion Hip Right Passive Testing Position Supine Abduction 25 Internal Rotation 20 External Rotation 40 Left Passive Testing Position Supine Abduction 25 Internal Rotation 30 External Rotation 40 PT-OP-L Special Tests Start: 07/12/19 16:28 Freq: Status: Active Protocol: Document 07/14/19 10:38 LRN (Rec: 07/14/19 13:37 LRN [id number]) Special Tests Knee Special Tests Varus- 25 Degrees Test Results Positive R knee Comments R knee: Pain in medial knee joint Patellar Grind Test Test Results Negative bilaterally PT-OP-M Strength Start: 07/12/19 16:28 Freq: Status: Active Protocol: Document 07/14/19 10:38 LRN (Rec: 07/14/19 13:37 LRN [id number]) Hip Strength Hip Manual Muscle Testing Right Adduction 3 Fair Comments Generally WNL except as noted above. Left Adduction 4 Good Reason Not Measured WFL Comments Generally WNL except as noted above. Knee Strength Knee Manual Muscle Testing Right Reason Not Measured WFL Left Reason Not Measured WFL Ankle/Foot Strength Ankle and Foot Manual Muscle Testing Right Plantarflexion (S1) 3+ Fair+ Comments Generally WNL except PF above. Left Plantarflexion (S1) 3+ Fair+ Comments Generally WNL except PF above. PT-OP-Q Treatments Start: 07/12/19 16:28 Freq: Status: Active Protocol: Document 08/05/19 12:46 LRN (Rec: 08/05/19 13:34 LRN [id number]) Cardio Equipment Bicycle (Upright) Duration (Minutes) 8 Resistance 6 Seat Position 9 Gym Equipment Shuttle Recovery Unilateral Heel Raises Details Heel raise with & w/o squat Resistance 100# Reps/Time 10x Therapeutic Exercises Supine Exercises Hamstring/neural stetch Supine Exercise Name Hamstring/neural stretch Side bilateral Standing Exercises Ankle DF Standing Exercise Name Stretch on DURGA f/b: toe raises . Reps/Minutes 60 Step downs Standing Exercise Name Step downs Equipment Used 1, 4 raisers Reps/Minutes 5' Step ups Standing Exercise Name Step ups Equipment Used 1, 4 raiser Reps/Minutes 6' Stairs Standing Exercise Name Up/Down 6 step Equipment Used Stairs, railing on R going up Comments Without railing. Toe Raises Standing Exercise Name Toe Raises: Feet inward, forward, outward Side bilateral Reps/Minutes 10 x each Heel raises Standing Exercise Name Heel Raises: Feet inward, forward, outward Side bilateral Reps/Minutes 10 x each Manual Therapy Treatment Soft Tissue Mobilization patellar tendon Body Location R Patellar Tendon Mobilization Type Strumming Comments No pain Self-Care/Home Management Treatment Education Patient Education Home Exercise Program Activities Self-Care/Home Management Activities Reviewed: Sitting Hamstring stretch. I/S pt in standing squat heel lift ex. for home. PT-OP-R Modalities Start: 07/12/19 16:28 Freq: Status: Active Protocol: Document 08/02/19 12:47 LRN (Rec: 08/02/19 15:08 LRN [id number]) Hot Pack/Cold Pack Treatment Cold Pack Location Espinoza knees Patient Position Hooklying Treatment Duration (minutes) 10 PT-OP-T Assessment and Plan Start: 07/12/19 16:28 Freq: Status: Active Protocol: Document 08/05/19 12:46 LRN (Rec: 08/05/19 13:34 LRN [id number]) Physical Therapy Assessment Goals Five Impairment Lacks appropriate self care HEP. Custodial Goal (LTG) Pt will be independent in a self care HEP. LTG Duration 09/08/19 (08/02/19: Progressing) Four Impairment Difficulty getting in/out of his car (low surface) due to espinoza knee pain. Insulator Apprentice Goal (LTG) Pt will be able to report getting in/out of a car with moderate or less difficulty per LEFS score. LTG Duration 08/25/19 Three Impairment Stair ambulation going down sideways due to bilateral knee pain. Custodial Goal (LTG) Pt will be able to ambulate a flight of stairs with a normal gait pattern with a little bit to moderate difficulty. LTG Duration 08/25/19 (08/02/19: GOAL MET w/mod difficulty) Two Impairment Bilateral knee pain with incline ambulation. Insulator Apprentice Goal (LTG) Pt will be able to ambulate 30 ' on unlevel ground and/or inclines (trails) using a hiking stick with tolerable pain of no greater than 3/10. LTG Duration 08/25/19 (08/05/19: GOAL MET) One Impairment Decreased bilateral hip mobility contributing to espinoza knee pain Short Term Goal (STG) Improve hip AB mobility to lessen hip AD pain with walking. STG Duration 08/01/19 (08/02/19: GOAL MET ) Progress Towards Goals Progress Towards Goals Progressing Toward Goals Progress Comments Goal 1: MET Goal 2: MET. Goal 3: MET Goal 4: LEFS not assessed. Goal 5: HEP progressing. Assessment Summary Assessment Pt having bilateral knee pain after hiking 20+ minutes (on return home); therefore he did not follow I/S to start 10' walk. He has pain with repetitive stair stepping exercise, but a little less with MWM of lift at ~L3. It was noted that he has weakness with eccentric contraction when going down stairs. Pt has fairly good posture; therefore posture training is probably not needed. Physical Therapy Plan Frequency and Duration Frequency of Treatment 2x/Week Plan of Care Start Date 07/14/19 Plan of Care End Date 09/08/19 Next Visit Focus/Plan Next Note Type Treatment Note Next Visit Plan Check if pt did more hiking over weekend and his tolerance . Add HEP handouts for ankle PF ex's, balance training. Review pelvic shift/rotation to limit hard heel strike with gait. Monitor for R meniscus injury.
--- NOTE | 2019-08-05 15:04 | PT.OTN ---
Current Diagnoses Unilateral primary osteoarthritis, right knee (08/05/19) Unilateral primary osteoarthritis, left knee (08/05/19) Physical Therapy Treatment Note PT-OP-A Visit Information Start: 07/12/19 16:28 Freq: Status: Active Protocol: Document 08/05/19 12:46 LRN (Rec: 08/05/19 13:34 LRN [id number]) Out-Patient Physical Therapy Visit Information Visit Information Visit Type Treatment Note Visit Start Time 12:46 Visit Stop Time 13:37 Total Visit Minutes 51 Visit Number 8 Number of CLAIMS AGENT RIGHT OF WAY Visits 0 Evaluation Information Evaluation Date 07/14/19 Precautions Precautions Neuropathy History of skin cancer Controlled blood pressure with use of Warfarin Hx of hip dislocation in an ABD position. PT-OP-B Current Condition Start: 07/12/19 16:28 Freq: Status: Active Protocol: Document 07/14/19 10:38 LRN (Rec: 07/14/19 13:37 LRN [id number]) Current Condition History of Current Condition Onset Date 10 yrs ago Current Complaints Progressively worsening of espinoza knee pain History of Current Condition Pt reports he has had X-rays indicating arthritis, but not severe enough for surgery. He has tried a strap knee brace that he noticed with use onset of hip problems (medial thigh pain). He reports being on Lipitor for 10 yrs and was told part of the pain in his legs was medication induced. He was changed to a non-statin medication and states some of the pain in his legs has decreased. He is limited in his ability to walk as fast as he used to and can't walk uneven ground (trails). He has pain mainly with transitions and with activity. Prior Treatments and Tests PT reports X-rays of both knees show arthrits of bone on bone. He has had a cortisone injection in his R medial knee that caused more pain. Treatment Goals Patient/Caregiver Goals Pt goal is to be able to walk better, return to walking trails and be able to have less pain overall. He understands he will not become painfree but would like to be able to transfer with less pain. Prior Functional Status Baseline Function- ADL's Independent Baseline Function- Mobility Independent Baseline Function- Gait Able to walk on uneven ground (trails, inclines) 1 yr ago. Baseline Function- Other Ambulates up/down stairs with reciprocal gait > 2 times, 6 months ago. Current Functional Impairments (Reported) Functional Limitations- ADL's Decreased ability to transfer sit to stand from regular height surface (uses hands). Decreased ability to transfer in/out of car (lifts legs into car). Functional Limitations- Mobility/Gait Limited tolerance for up/down stairs in sideways gait ~ 2 times. Limited ability to walk on unlevel ground (inclines, trails) Personal Factors Other Personal Factors That May Effect Arthritis Therapy/Recovery Neuropathy History of skin cancer Controlled blood pressure with use of Warfarin PT-OP-C Subjective Start: 07/12/19 16:28 Freq: Status: Active Protocol: Document 08/05/19 12:46 LRN (Rec: 08/05/19 13:34 LRN [id number]) OP-PT Subjective Patient Comments Patient Comments States he did do a 20' one direction hike and had pain rated 2/10, coming back down). Going up without pain. States he can now lift his leg in the shower and wasn't able to do before. He feels he is 50-60% better. Walked [place] the stairs at the library for the 1st time (normally used stairs) with knee pain and had to pull self up. Going up stairs at home is easy, and is now able to ambulate stairs at home with normal gait. Patient Reported Progress Improving PT-OP-F Manual Assessment Start: 07/12/19 16:28 Freq: Status: Active Protocol: Document 07/14/19 10:38 LRN (Rec: 07/14/19 13:37 LRN [id number]) Manual Assessments Soft Tissue Assessment Soft Tissue Mobility Assessment No palpable areas of tenderness around the knee joints. Tender at inner thigh with stretch. Joint Mobility Assessment Joint Mobility Assessment Pain in medial R knee with varus stress applied. PT-OP-G Mobility & Gait Start: 07/12/19 16:28 Freq: Status: Active Protocol: Document 08/02/19 12:47 LRN (Rec: 08/02/19 15:22 LRN [id number]) Stair Climbing Evaluation Evaluation Level of Assist On Stairs Independent Technique/Endurance Stair Climbing Direction Ascend and Descend Stair Climbing Technique Step Over Step Number of Steps Climbed 4 Stair Climbing Set # Repetitions (reps) 1 Comments Stair Climbing Comments No pain. Railing going down on L side, no rail going up steps. PT-OP-J Posture/Palpation/Skin Start: 07/12/19 16:28 Freq: Status: Active Protocol: Document 07/14/19 10:38 LRN (Rec: 07/14/19 13:37 LRN [id number]) Posture Evaluation Comments Posture Comments Standing: Low R shoulder and scapula, varus of bilateral knees. PT-OP-K Range of Motion Start: 07/12/19 16:28 Freq: Status: Active Protocol: Document 08/02/19 12:47 LRN (Rec: 08/02/19 15:20 LRN [id number]) Hip Goniometric Range of Motion Hip Right Passive Testing Position Supine Abduction 25 Internal Rotation 20 External Rotation 40 Left Passive Testing Position Supine Abduction 25 Internal Rotation 30 External Rotation 40 PT-OP-L Special Tests Start: 07/12/19 16:28 Freq: Status: Active Protocol: Document 07/14/19 10:38 LRN (Rec: 07/14/19 13:37 LRN [id number]) Special Tests Knee Special Tests Varus- 25 Degrees Test Results Positive R knee Comments R knee: Pain in medial knee joint Patellar Grind Test Test Results Negative bilaterally PT-OP-M Strength Start: 07/12/19 16:28 Freq: Status: Active Protocol: Document 07/14/19 10:38 LRN (Rec: 07/14/19 13:37 LRN [id number]) Hip Strength Hip Manual Muscle Testing Right Adduction 3 Fair Comments Generally WNL except as noted above. Left Adduction 4 Good Reason Not Measured WFL Comments Generally WNL except as noted above. Knee Strength Knee Manual Muscle Testing Right Reason Not Measured WFL Left Reason Not Measured WFL Ankle/Foot Strength Ankle and Foot Manual Muscle Testing Right Plantarflexion (S1) 3+ Fair+ Comments Generally WNL except PF above. Left Plantarflexion (S1) 3+ Fair+ Comments Generally WNL except PF above. PT-OP-Q Treatments Start: 07/12/19 16:28 Freq: Status: Active Protocol: Document 08/05/19 12:46 LRN (Rec: 08/05/19 13:34 LRN [id number]) Cardio Equipment Bicycle (Upright) Duration (Minutes) 8 Resistance 6 Seat Position 9 Gym Equipment Shuttle Recovery Unilateral Heel Raises Details Heel raise with & w/o squat Resistance 100# Reps/Time 10x Therapeutic Exercises Supine Exercises Hamstring/neural stetch Supine Exercise Name Hamstring/neural stretch Side bilateral Standing Exercises Ankle DF Standing Exercise Name Stretch on DURGA f/b: toe raises . Reps/Minutes 60 Step downs Standing Exercise Name Step downs Equipment Used 1, 4 raisers Reps/Minutes 5' Step ups Standing Exercise Name Step ups Equipment Used 1, 4 raiser Reps/Minutes 6' Stairs Standing Exercise Name Up/Down 6 step Equipment Used Stairs, railing on R going up Comments Without railing. Toe Raises Standing Exercise Name Toe Raises: Feet inward, forward, outward Side bilateral Reps/Minutes 10 x each Heel raises Standing Exercise Name Heel Raises: Feet inward, forward, outward Side bilateral Reps/Minutes 10 x each Manual Therapy Treatment Soft Tissue Mobilization patellar tendon Body Location R Patellar Tendon Mobilization Type Strumming Comments No pain Self-Care/Home Management Treatment Education Patient Education Home Exercise Program Activities Self-Care/Home Management Activities Reviewed: Sitting Hamstring stretch. I/S pt in standing squat heel lift ex. for home. PT-OP-R Modalities Start: 07/12/19 16:28 Freq: Status: Active Protocol: Document 08/05/19 12:46 LRN (Rec: 08/05/19 15:04 LRN [id number]) Hot Pack/Cold Pack Treatment Cold Pack Location Espinoza knees Patient Position Hooklying Treatment Duration (minutes) 10 PT-OP-T Assessment and Plan Start: 07/12/19 16:28 Freq: Status: Active Protocol: Document 08/05/19 12:46 LRN (Rec: 08/05/19 13:34 LRN [id number]) Physical Therapy Assessment Goals Five Impairment Lacks appropriate self care HEP. Prison Goal (LTG) Pt will be independent in a self care HEP. LTG Duration 09/08/19 (08/02/19: Progressing) Four Impairment Difficulty getting in/out of his car (low surface) due to espinoza knee pain. Superintendent Local Goal (LTG) Pt will be able to report getting in/out of a car with moderate or less difficulty per LEFS score. LTG Duration 08/25/19 Three Impairment Stair ambulation going down sideways due to bilateral knee pain. Prison Goal (LTG) Pt will be able to ambulate a flight of stairs with a normal gait pattern with a little bit to moderate difficulty. LTG Duration 08/25/19 (08/02/19: GOAL MET w/mod difficulty) Two Impairment Bilateral knee pain with incline ambulation. Superintendent Local Goal (LTG) Pt will be able to ambulate 30 ' on unlevel ground and/or inclines (trails) using a hiking stick with tolerable pain of no greater than 3/10. LTG Duration 08/25/19 (08/05/19: GOAL MET) One Impairment Decreased bilateral hip mobility contributing to espinoza knee pain Short Term Goal (STG) Improve hip AB mobility to lessen hip AD pain with walking. STG Duration 08/01/19 (08/02/19: GOAL MET ) Progress Towards Goals Progress Towards Goals Progressing Toward Goals Progress Comments Goal 1: MET Goal 2: MET. Goal 3: MET Goal 4: LEFS not assessed. Goal 5: HEP progressing. Assessment Summary Assessment Pt having bilateral knee pain after hiking 20+ minutes (on return home); therefore he did not follow I/S to start 10' walk. He has pain with repetitive stair stepping exercise, but a little less with MWM of lift at ~L3. It was noted that he has weakness with eccentric contraction when going down stairs. Pt has fairly good posture; therefore posture training is probably not needed. Physical Therapy Plan Frequency and Duration Frequency of Treatment 2x/Week Plan of Care Start Date 07/14/19 Plan of Care End Date 09/08/19 Next Visit Focus/Plan Next Note Type Treatment Note Next Visit Plan Check if pt did more hiking over weekend and his tolerance . Add HEP handouts for ankle PF ex's, balance training. Review pelvic shift/rotation to limit hard heel strike with gait. Monitor for R meniscus injury.
--- NOTE | 2019-08-09 12:42 | PT.OTN ---
Current Diagnoses Unilateral primary osteoarthritis, right knee (08/09/19) Unilateral primary osteoarthritis, left knee (08/09/19) Physical Therapy Treatment Note PT-OP-A Visit Information Start: 07/12/19 16:28 Freq: Status: Active Protocol: Document 08/09/19 11:19 LRN (Rec: 08/09/19 12:13 LRN [id number]) Out-Patient Physical Therapy Visit Information Visit Information Visit Type Progress Note Visit Start Time 11:19 Visit Stop Time 12:10 Total Visit Minutes 51 Visit Number 9 Number of RELISH MAKER Visits 0 Evaluation Information Evaluation Date 07/14/19 Precautions Precautions Neuropathy History of skin cancer Controlled blood pressure with use of Warfarin Hx of hip dislocation in an ABD position. PT-OP-B Current Condition Start: 07/12/19 16:28 Freq: Status: Active Protocol: Document 07/14/19 10:38 LRN (Rec: 07/14/19 13:37 LRN [id number]) Current Condition History of Current Condition Onset Date 10 yrs ago Current Complaints Progressively worsening of espinoza knee pain History of Current Condition Pt reports he has had X-rays indicating arthritis, but not severe enough for surgery. He has tried a strap knee brace that he noticed with use onset of hip problems (medial thigh pain). He reports being on Lipitor for 10 yrs and was told part of the pain in his legs was medication induced. He was changed to a non-statin medication and states some of the pain in his legs has decreased. He is limited in his ability to walk as fast as he used to and can't walk uneven ground (trails). He has pain mainly with transitions and with activity. Prior Treatments and Tests PT reports X-rays of both knees show arthrits of bone on bone. He has had a cortisone injection in his R medial knee that caused more pain. Treatment Goals Patient/Caregiver Goals Pt goal is to be able to walk better, return to walking trails and be able to have less pain overall. He understands he will not become painfree but would like to be able to transfer with less pain. Prior Functional Status Baseline Function- ADL's Independent Baseline Function- Mobility Independent Baseline Function- Gait Able to walk on uneven ground (trails, inclines) 1 yr ago. Baseline Function- Other Ambulates up/down stairs with reciprocal gait > 2 times, 6 months ago. Current Functional Impairments (Reported) Functional Limitations- ADL's Decreased ability to transfer sit to stand from regular height surface (uses hands). Decreased ability to transfer in/out of car (lifts legs into car). Functional Limitations- Mobility/Gait Limited tolerance for up/down stairs in sideways gait ~ 2 times. Limited ability to walk on unlevel ground (inclines, trails) Personal Factors Other Personal Factors That May Effect Arthritis Therapy/Recovery Neuropathy History of skin cancer Controlled blood pressure with use of Warfarin PT-OP-C Subjective Start: 07/12/19 16:28 Freq: Status: Active Protocol: Document 08/09/19 11:19 LRN (Rec: 08/09/19 12:13 LRN [id number]) OP-PT Subjective Patient Comments Patient Comments Went hiking 2 days ago and had pain in the knees on descent. PT-OP-F Manual Assessment Start: 07/12/19 16:28 Freq: Status: Active Protocol: Document 07/14/19 10:38 LRN (Rec: 07/14/19 13:37 LRN [id number]) Manual Assessments Soft Tissue Assessment Soft Tissue Mobility Assessment No palpable areas of tenderness around the knee joints. Tender at inner thigh with stretch. Joint Mobility Assessment Joint Mobility Assessment Pain in medial R knee with varus stress applied. PT-OP-G Mobility & Gait Start: 07/12/19 16:28 Freq: Status: Active Protocol: Document 08/02/19 12:47 LRN (Rec: 08/02/19 15:22 LRN [id number]) Stair Climbing Evaluation Evaluation Level of Assist On Stairs Independent Technique/Endurance Stair Climbing Direction Ascend and Descend Stair Climbing Technique Step Over Step Number of Steps Climbed 4 Stair Climbing Set # Repetitions (reps) 1 Comments Stair Climbing Comments No pain. Railing going down on L side, no rail going up steps. PT-OP-J Posture/Palpation/Skin Start: 07/12/19 16:28 Freq: Status: Active Protocol: Document 07/14/19 10:38 LRN (Rec: 07/14/19 13:37 LRN [id number]) Posture Evaluation Comments Posture Comments Standing: Low R shoulder and scapula, varus of bilateral knees. PT-OP-K Range of Motion Start: 07/12/19 16:28 Freq: Status: Active Protocol: Document 08/02/19 12:47 LRN (Rec: 08/02/19 15:20 LRN [id number]) Hip Goniometric Range of Motion Hip Right Passive Testing Position Supine Abduction 25 Internal Rotation 20 External Rotation 40 Left Passive Testing Position Supine Abduction 25 Internal Rotation 30 External Rotation 40 PT-OP-L Special Tests Start: 07/12/19 16:28 Freq: Status: Active Protocol: Document 07/14/19 10:38 LRN (Rec: 07/14/19 13:37 LRN [id number]) Special Tests Knee Special Tests Varus- 25 Degrees Test Results Positive R knee Comments R knee: Pain in medial knee joint Patellar Grind Test Test Results Negative bilaterally PT-OP-M Strength Start: 07/12/19 16:28 Freq: Status: Active Protocol: Document 07/14/19 10:38 LRN (Rec: 07/14/19 13:37 LRN [id number]) Hip Strength Hip Manual Muscle Testing Right Adduction 3 Fair Comments Generally WNL except as noted above. Left Adduction 4 Good Reason Not Measured WFL Comments Generally WNL except as noted above. Knee Strength Knee Manual Muscle Testing Right Reason Not Measured WFL Left Reason Not Measured WFL Ankle/Foot Strength Ankle and Foot Manual Muscle Testing Right Plantarflexion (S1) 3+ Fair+ Comments Generally WNL except PF above. Left Plantarflexion (S1) 3+ Fair+ Comments Generally WNL except PF above. PT-OP-Q Treatments Start: 07/12/19 16:28 Freq: Status: Active Protocol: Document 08/09/19 11:19 LRN (Rec: 08/09/19 12:13 LRN [id number]) Cardio Equipment Treadmill Duration (Minutes) 10 Speed 1.0 Incline 7 Other Increased incline to max of 10 briefly Therapeutic Exercises Standing Exercises Ankle DF Standing Exercise Name Stretch on DURGA f/b: toe raises . Reps/Minutes 60 x 3 Toe Raises Standing Exercise Name Toe Raises: Feet inward, forward, outward Side bilateral Reps/Minutes 10 x each Heel raises Standing Exercise Name Heel raises off step Side bilateral Reps/Minutes 10x, 15x Gait Training Gait Activity Trunk rotation Description Trunk rotation with hip shift Device Used machined parts metal sprayer w/railing Level of Assistance CGA with physical cuing Surface level Distance/Duration 10' Treatment Focus Trunk and hip rotation Hip shift/rot Description Shift of hip w/slight rotation & feet facing forward Device Used machined parts metal sprayer with railing Level of Assistance CGA with physical cuing. Surface level Distance/Duration 10' Toe off Description Toe off phase Surface level and on TM Distance/Duration 3 PT-OP-R Modalities Start: 07/12/19 16:28 Freq: Status: Active Protocol: Document 08/09/19 11:19 LRN (Rec: 08/09/19 12:13 LRN [id number]) Hot Pack/Cold Pack Treatment Cold Pack Location Espinoza knees Patient Position Hooklying Treatment Duration (minutes) 10 PT-OP-T Assessment and Plan Start: 07/12/19 16:28 Freq: Status: Active Protocol: Document 08/09/19 11:19 LRN (Rec: 08/09/19 12:13 LRN [id number]) Physical Therapy Assessment Goals Five Impairment Lacks appropriate self care HEP. Fdc Goal (LTG) Pt will be independent in a self care HEP. LTG Duration 09/08/19 (08/02/19: Progressing) Four Impairment Difficulty getting in/out of his car (low surface) due to espinoza knee pain. Maintenance Of Way Clerk Goal (LTG) Pt will be able to report getting in/out of a car with moderate or less difficulty per LEFS score. LTG Duration 08/25/19 Three Impairment Stair ambulation going down sideways due to bilateral knee pain. Maintenance Of Way Clerk Goal (LTG) Pt will be able to ambulate a flight of stairs with a normal gait pattern with a little bit to moderate difficulty. LTG Duration 08/25/19 (08/02/19: GOAL MET w/mod difficulty) Two Impairment Bilateral knee pain with incline ambulation. Fdc Goal (LTG) Pt will be able to ambulate 30 ' on unlevel ground and/or inclines (trails) using a hiking stick with tolerable pain of no greater than 3/10. LTG Duration 08/25/19 (08/05/19: GOAL MET) Assessment Summary Assessment On TM at 7% incline, pt has less pain at tibial tubercle if he walks heel>toe up incline. With normal gait he lacks toe off, hip lateral shift/rotation and trunk rotation. Physical Therapy Plan Frequency and Duration Frequency of Treatment 2x/Week Plan of Care Start Date 07/14/19 Plan of Care End Date 09/08/19 Next Visit Focus/Plan Next Note Type Treatment Note Next Visit Plan PN next visit. Monitor pt tolerance with hiking and use of cryotherapy. Add HEP handouts for ankle PF ex's, balance training. Try US to patellar tendon near tibial tuberosity with Quad stretch. Monitor for R meniscus injury .
--- NOTE | 2019-08-11 13:13 | PT.OTN ---
Current Diagnoses Unilateral primary osteoarthritis, right knee (08/11/19) Unilateral primary osteoarthritis, left knee (08/11/19) Physical Therapy Treatment Note PT-OP-A Visit Information Start: 07/12/19 16:28 Freq: Status: Active Protocol: Document 08/11/19 12:18 MB (Rec: 08/11/19 13:12 MB [id number]) Out-Patient Physical Therapy Visit Information Visit Information Visit Type Treatment Note Visit Start Time 12:18 Visit Stop Time 13:00 Total Visit Minutes 42 Visit Number 10 PT-OP-B Current Condition Start: 07/12/19 16:28 Freq: Status: Active Protocol: Document 07/14/19 10:38 LRN (Rec: 07/14/19 13:37 LRN [id number]) Current Condition History of Current Condition Onset Date 10 yrs ago Current Complaints Progressively worsening of espinoza knee pain History of Current Condition Pt reports he has had X-rays indicating arthritis, but not severe enough for surgery. He has tried a strap knee brace that he noticed with use onset of hip problems (medial thigh pain). He reports being on Lipitor for 10 yrs and was told part of the pain in his legs was medication induced. He was changed to a non-statin medication and states some of the pain in his legs has decreased. He is limited in his ability to walk as fast as he used to and can't walk uneven ground (trails). He has pain mainly with transitions and with activity. Prior Treatments and Tests PT reports X-rays of both knees show arthrits of bone on bone. He has had a cortisone injection in his R medial knee that caused more pain. Treatment Goals Patient/Caregiver Goals Pt goal is to be able to walk better, return to walking trails and be able to have less pain overall. He understands he will not become painfree but would like to be able to transfer with less pain. Prior Functional Status Baseline Function- ADL's Independent Baseline Function- Mobility Independent Baseline Function- Gait Able to walk on uneven ground (trails, inclines) 1 yr ago. Baseline Function- Other Ambulates up/down stairs with reciprocal gait > 2 times, 6 months ago. Current Functional Impairments (Reported) Functional Limitations- ADL's Decreased ability to transfer sit to stand from regular height surface (uses hands). Decreased ability to transfer in/out of car (lifts legs into car). Functional Limitations- Mobility/Gait Limited tolerance for up/down stairs in sideways gait ~ 2 times. Limited ability to walk on unlevel ground (inclines, trails) Personal Factors Other Personal Factors That May Effect Arthritis Therapy/Recovery Neuropathy History of skin cancer Controlled blood pressure with use of Warfarin PT-OP-C Subjective Start: 07/12/19 16:28 Freq: Status: Active Protocol: Document 08/11/19 12:18 MB (Rec: 08/11/19 13:12 MB [id number]) OP-PT Subjective Patient Comments Patient Comments Pt states that the exercises have been very helpful. He has noticeable improvement when working. PT-OP-F Manual Assessment Start: 07/12/19 16:28 Freq: Status: Active Protocol: Document 07/14/19 10:38 LRN (Rec: 07/14/19 13:37 LRN [id number]) Manual Assessments Soft Tissue Assessment Soft Tissue Mobility Assessment No palpable areas of tenderness around the knee joints. Tender at inner thigh with stretch. Joint Mobility Assessment Joint Mobility Assessment Pain in medial R knee with varus stress applied. PT-OP-G Mobility & Gait Start: 07/12/19 16:28 Freq: Status: Active Protocol: Document 08/02/19 12:47 LRN (Rec: 08/02/19 15:22 LRN [id number]) Stair Climbing Evaluation Evaluation Level of Assist On Stairs Independent Technique/Endurance Stair Climbing Direction Ascend and Descend Stair Climbing Technique Step Over Step Number of Steps Climbed 4 Stair Climbing Set # Repetitions (reps) 1 Comments Stair Climbing Comments No pain. Railing going down on L side, no rail going up steps. PT-OP-J Posture/Palpation/Skin Start: 07/12/19 16:28 Freq: Status: Active Protocol: Document 07/14/19 10:38 LRN (Rec: 07/14/19 13:37 LRN [id number]) Posture Evaluation Comments Posture Comments Standing: Low R shoulder and scapula, varus of bilateral knees. PT-OP-K Range of Motion Start: 07/12/19 16:28 Freq: Status: Active Protocol: Document 08/02/19 12:47 LRN (Rec: 08/02/19 15:20 LRN [id number]) Hip Goniometric Range of Motion Hip Right Passive Testing Position Supine Abduction 25 Internal Rotation 20 External Rotation 40 Left Passive Testing Position Supine Abduction 25 Internal Rotation 30 External Rotation 40 PT-OP-L Special Tests Start: 07/12/19 16:28 Freq: Status: Active Protocol: Document 07/14/19 10:38 LRN (Rec: 07/14/19 13:37 LRN [id number]) Special Tests Knee Special Tests Varus- 25 Degrees Test Results Positive R knee Comments R knee: Pain in medial knee joint Patellar Grind Test Test Results Negative bilaterally PT-OP-M Strength Start: 07/12/19 16:28 Freq: Status: Active Protocol: Document 07/14/19 10:38 LRN (Rec: 07/14/19 13:37 LRN [id number]) Hip Strength Hip Manual Muscle Testing Right Adduction 3 Fair Comments Generally WNL except as noted above. Left Adduction 4 Good Reason Not Measured WFL Comments Generally WNL except as noted above. Knee Strength Knee Manual Muscle Testing Right Reason Not Measured WFL Left Reason Not Measured WFL Ankle/Foot Strength Ankle and Foot Manual Muscle Testing Right Plantarflexion (S1) 3+ Fair+ Comments Generally WNL except PF above. Left Plantarflexion (S1) 3+ Fair+ Comments Generally WNL except PF above. PT-OP-Q Treatments Start: 07/12/19 16:28 Freq: Status: Active Protocol: Document 08/11/19 12:18 MB (Rec: 08/11/19 13:12 MB [id number]) Therapeutic Exercises Other Exercises Rolling pin self-massage Comments Rolling pin self-massage Manual Therapy Treatment Manual Techniques STM B vastus lateralis and quads Comments Use of rolling pin and manually STM B quads PT-OP-R Modalities Start: 07/12/19 16:28 Freq: Status: Active Protocol: Document 08/09/19 11:19 LRN (Rec: 08/09/19 12:13 LRN [id number]) Hot Pack/Cold Pack Treatment Cold Pack Location Espinoza knees Patient Position Hooklying Treatment Duration (minutes) 10 PT-OP-T Assessment and Plan Start: 07/12/19 16:28 Freq: Status: Active Protocol: Document 08/11/19 12:18 MB (Rec: 08/11/19 13:12 MB [id number]) Physical Therapy Assessment Goals Five Impairment Lacks appropriate self care HEP. Correction Goal (LTG) Pt will be independent in a self care HEP. LTG Duration 09/08/19 (08/02/19: Progressing) Four Impairment Difficulty getting in/out of his car (low surface) due to espinoza knee pain. Inspector Packager Goal (LTG) Pt will be able to report getting in/out of a car with moderate or less difficulty per LEFS score. LTG Duration 08/25/19 Three Impairment Stair ambulation going down sideways due to bilateral knee pain. Correction Goal (LTG) Pt will be able to ambulate a flight of stairs with a normal gait pattern with a little bit to moderate difficulty. LTG Duration 08/25/19 (08/02/19: GOAL MET w/mod difficulty) Two Impairment Bilateral knee pain with incline ambulation. Inspector Packager Goal (LTG) Pt will be able to ambulate 30 ' on unlevel ground and/or inclines (trails) using a hiking stick with tolerable pain of no greater than 3/10. LTG Duration 08/25/19 (08/05/19: GOAL MET) Assessment Summary Assessment Pt reports increased pain when he gets up from a movie if the phone rings. Ed pt to slide leg out, heel down and perform 1-2 sit to stands every 20-30 minutes. Myofascial work today. Monitor response. Physical Therapy Plan Frequency and Duration Frequency of Treatment 2x/Week Plan of Care Start Date 07/14/19 Plan of Care End Date 09/08/19 Next Visit Focus/Plan Next Note Type Treatment Note Next Visit Plan Added rolling pin massage this date, 08/11. Follow-up next treatment date to see how he feels with it. Add HEP handouts for ankle PF ex's, balance training. Try US to patellar tendon near tibial tuberosity with Quad stretch. Monitor for R meniscus injury .
--- NOTE | 2019-08-16 19:03 | PT.OTN ---
Current Diagnoses Unilateral primary osteoarthritis, right knee (08/16/19) Unilateral primary osteoarthritis, left knee (08/16/19) Physical Therapy Treatment Note PT-OP-A Visit Information Start: 07/12/19 16:28 Freq: Status: Active Protocol: Document 08/16/19 10:35 LRN (Rec: 08/16/19 11:25 LRN [id number]) Out-Patient Physical Therapy Visit Information Visit Information Visit Type Treatment Note Visit Start Time 10:35 Visit Stop Time 11:22 Total Visit Minutes 47 Visit Number 11 Evaluation Information Evaluation Date 07/14/19 Precautions Precautions Neuropathy History of skin cancer Controlled blood pressure with use of Warfarin Hx of hip dislocation in an ABD position. PT-OP-B Current Condition Start: 07/12/19 16:28 Freq: Status: Active Protocol: Document 07/14/19 10:38 LRN (Rec: 07/14/19 13:37 LRN [id number]) Current Condition History of Current Condition Onset Date 10 yrs ago Current Complaints Progressively worsening of espinoza knee pain History of Current Condition Pt reports he has had X-rays indicating arthritis, but not severe enough for surgery. He has tried a strap knee brace that he noticed with use onset of hip problems (medial thigh pain). He reports being on Lipitor for 10 yrs and was told part of the pain in his legs was medication induced. He was changed to a non-statin medication and states some of the pain in his legs has decreased. He is limited in his ability to walk as fast as he used to and can't walk uneven ground (trails). He has pain mainly with transitions and with activity. Prior Treatments and Tests PT reports X-rays of both knees show arthrits of bone on bone. He has had a cortisone injection in his R medial knee that caused more pain. Treatment Goals Patient/Caregiver Goals Pt goal is to be able to walk better, return to walking trails and be able to have less pain overall. He understands he will not become painfree but would like to be able to transfer with less pain. Prior Functional Status Baseline Function- ADL's Independent Baseline Function- Mobility Independent Baseline Function- Gait Able to walk on uneven ground (trails, inclines) 1 yr ago. Baseline Function- Other Ambulates up/down stairs with reciprocal gait > 2 times, 6 months ago. Current Functional Impairments (Reported) Functional Limitations- ADL's Decreased ability to transfer sit to stand from regular height surface (uses hands). Decreased ability to transfer in/out of car (lifts legs into car). Functional Limitations- Mobility/Gait Limited tolerance for up/down stairs in sideways gait ~ 2 times. Limited ability to walk on unlevel ground (inclines, trails) Personal Factors Other Personal Factors That May Effect Arthritis Therapy/Recovery Neuropathy History of skin cancer Controlled blood pressure with use of Warfarin PT-OP-C Subjective Start: 07/12/19 16:28 Freq: Status: Active Protocol: Document 08/16/19 10:35 LRN (Rec: 08/16/19 11:25 LRN [id number]) OP-PT Subjective Patient Comments Patient Comments Hiked 15' up and down and knee did pretty good. States he feels he has a good HEP and has improved overall and feels ready to be placed on a HEP. Patient Questionnaires Lower Extremity Functional Scale LEFS Score 60 LEFS Impairment 20 to 39% Impaired (Score 48- 62) PT-OP-F Manual Assessment Start: 07/12/19 16:28 Freq: Status: Active Protocol: Document 07/14/19 10:38 LRN (Rec: 07/14/19 13:37 LRN [id number]) Manual Assessments Soft Tissue Assessment Soft Tissue Mobility Assessment No palpable areas of tenderness around the knee joints. Tender at inner thigh with stretch. Joint Mobility Assessment Joint Mobility Assessment Pain in medial R knee with varus stress applied. PT-OP-G Mobility & Gait Start: 07/12/19 16:28 Freq: Status: Active Protocol: Document 08/02/19 12:47 LRN (Rec: 08/02/19 15:22 LRN [id number]) Stair Climbing Evaluation Evaluation Level of Assist On Stairs Independent Technique/Endurance Stair Climbing Direction Ascend and Descend Stair Climbing Technique Step Over Step Number of Steps Climbed 4 Stair Climbing Set # Repetitions (reps) 1 Comments Stair Climbing Comments No pain. Railing going down on L side, no rail going up steps. PT-OP-J Posture/Palpation/Skin Start: 07/12/19 16:28 Freq: Status: Active Protocol: Document 07/14/19 10:38 LRN (Rec: 07/14/19 13:37 LRN [id number]) Posture Evaluation Comments Posture Comments Standing: Low R shoulder and scapula, varus of bilateral knees. PT-OP-K Range of Motion Start: 07/12/19 16:28 Freq: Status: Active Protocol: Document 08/02/19 12:47 LRN (Rec: 08/02/19 15:20 LRN [id number]) Hip Goniometric Range of Motion Hip Right Passive Testing Position Supine Abduction 25 Internal Rotation 20 External Rotation 40 Left Passive Testing Position Supine Abduction 25 Internal Rotation 30 External Rotation 40 PT-OP-L Special Tests Start: 07/12/19 16:28 Freq: Status: Active Protocol: Document 07/14/19 10:38 LRN (Rec: 07/14/19 13:37 LRN [id number]) Special Tests Knee Special Tests Varus- 25 Degrees Test Results Positive R knee Comments R knee: Pain in medial knee joint Patellar Grind Test Test Results Negative bilaterally PT-OP-M Strength Start: 07/12/19 16:28 Freq: Status: Active Protocol: Document 07/14/19 10:38 LRN (Rec: 07/14/19 13:37 LRN [id number]) Hip Strength Hip Manual Muscle Testing Right Adduction 3 Fair Comments Generally WNL except as noted above. Left Adduction 4 Good Reason Not Measured WFL Comments Generally WNL except as noted above. Knee Strength Knee Manual Muscle Testing Right Reason Not Measured WFL Left Reason Not Measured WFL Ankle/Foot Strength Ankle and Foot Manual Muscle Testing Right Plantarflexion (S1) 3+ Fair+ Comments Generally WNL except PF above. Left Plantarflexion (S1) 3+ Fair+ Comments Generally WNL except PF above. PT-OP-Q Treatments Start: 07/12/19 16:28 Freq: Status: Active Protocol: Document 08/16/19 10:35 LRN (Rec: 08/16/19 11:25 LRN [id number]) Cardio Equipment Bicycle (Upright) Duration (Minutes) 8 Resistance 6 Seat Position 9 Treadmill Duration (Minutes) 5 Speed 1.0 Incline 7 Therapeutic Exercises Supine Exercises Hip Flex Supine Exercise Name Hip Flex Side bilateral Comments MMT taken, bilateral 5/5 Hamstring/neural stetch Supine Exercise Name Hamstring/neural stretch Side bilateral Hip AD stretch Supine Exercise Name Hip Adductors stretching Side bilateral Reps/Minutes 1x 60 Comments ROM taken: 18 deg's right, 20 deg's left Prone Exercises Hip Ext Prone Exercise Name Hip Ext Comments MMT taken, bilateral 5/5 Sidelying Exercises Hip AB Sidelying Exercise Name Hip AB Side bilateral Comments MMT taken, bilateral 5/5 Hip AD Sidelying Exercise Name Hip AD Side bilateral Comments MMT taken, bilateral 5/5 Standing Exercises Step downs Standing Exercise Name Step downs Equipment Used 6 raisers Reps/Minutes 5' Step ups Standing Exercise Name Step ups Equipment Used 6 raiser Reps/Minutes 5' Stairs Standing Exercise Name Up/Down 6 step Equipment Used Stairs, railing on L going up Comments also railing and walking pole Toe Raises Standing Exercise Name Toe Raises: Feet inward, forward, outward Side bilateral Reps/Minutes 10 x Heel raises Standing Exercise Name Heel raises off step Side bilateral Reps/Minutes 10x 2 Sit to Stand Standing Exercise Name Sit to Stands Side bilateral Reps/Minutes 3x Gait Training Gait Activity Gait speed Description Gait speed Comments 3.35 ft/sec (Initial gt speed was 2.7 ft/sec) Self-Care/Home Management Treatment Education Patient Education Home Exercise Program Activities Self-Care/Home Management Activities Reviewed appropriate HEP for pt to focus on and continue. PT-OP-R Modalities Start: 07/12/19 16:28 Freq: Status: Active Protocol: Document 08/09/19 11:19 LRN (Rec: 08/09/19 12:13 LRN [id number]) Hot Pack/Cold Pack Treatment Cold Pack Location Espinoza knees Patient Position Hooklying Treatment Duration (minutes) 10 PT-OP-T Assessment and Plan Start: 07/12/19 16:28 Freq: Status: Active Protocol: Document 08/16/19 10:35 LRN (Rec: 08/16/19 11:25 LRN [id number]) Physical Therapy Assessment Goals Five Impairment Lacks appropriate self care HEP. Slabber Goal (LTG) Pt will be independent in a self care HEP. LTG Duration 09/08/19 (08/16/19: GOAL MET) Four Impairment Difficulty getting in/out of his car (low surface) due to espinoza knee pain. Slabber Goal (LTG) Pt will be able to report getting in/out of a car with moderate or less difficulty per LEFS score (08/16/19: Pt reports difficulty with transfer due to hip flexion weakness, not knee pain). LTG Duration 08/25/19 (08/16/19: GOAL MET) Three Impairment Stair ambulation going down sideways due to bilateral knee pain. Mcfp Goal (LTG) Pt will be able to ambulate a flight of stairs with a normal gait pattern with a little bit to moderate difficulty. LTG Duration 08/25/19 (08/16/19: GOAL MET) Two Impairment Bilateral knee pain with incline ambulation. Mcfp Goal (LTG) Pt will be able to ambulate 30 ' on unlevel ground and/or inclines (trails) using a hiking stick with tolerable pain of no greater than 3/10. LTG Duration 08/25/19 (08/05/19: GOAL MET) One Impairment Decreased bilateral hip mobility contributing to espinoza knee pain Short Term Goal (STG) Improve hip AB mobility to lessen hip AD pain with walking. STG Duration 08/01/19 (08/02/19: GOAL MET ) Assessment Summary Assessment Pt has progressed well with therapy to meet his goals of increased mobility and activity. He has bilateral knee pain with stair ambulation and appears to have pain at the Tibial Tuberosity with stairs and when using his quadriceps muscle for activities. The pt is sore in his Quad from the rolling pin massage but felt it was helpful. He self wrote I/S on his HEP handouts for his ankle strengthening ex's and has been doing SLS balance ex' s already on his own. The pt didn't feel handouts were necessary. Use of cryotherapy would be beneficial to reducing the stress at strain at his Tibial Tuberosity if the pt would be more consistent with use. The pt is happy with progress and feels ready to continue with his HEP to see if he can further improve in his pain free function. Physical Therapy Plan Frequency and Duration Frequency of Treatment 2x/Week Plan of Care Start Date 07/14/19 Plan of Care End Date 09/08/19 Therapeutic Interventions Therapeutic Interventions Aquatic Therapy Discharge Physical Therapy Discharge Reasons Goals Met Discharge Comments Thank you for referring this patient for his physical therapy.
== END 2019-09-30 14:36 ==
LOC: PHYS 10:30
PROVIDERS: PCP Family Medicine; Visit Provider Orthopaedic Surgery Sports Medicine
DX: M17.12 Unilateral primary osteoarthritis, left knee (principal)
CPT/HCPCS: 97110; 97116; 97140; 97161; 97535

== ENCOUNTER → 2019-11-14 09:49 | Outpatient (CLI) | payer MEDICARE, SELFPAY ==
[2019-11-14 10:43] LABS: BUN Creatinine Ratio 21.1 (6-22); Blood Urea Nitrogen 19 mg/dL (9-20); Calcium 9.3 mg/dL (8.4-10.2); Carbon Dioxide 33 mmol/L (22-32); Chloride 95 mmol/L (98-107); Estimated Glomerular Filt Rate > 60.0 mL/min (>60); Glucose 116 mg/dL (80-110); HEMOLYSIS < 15 (0-50); Potassium 4.3 mmol/L (3.4-5.1); Sodium 134 mmol/L (137-145)
== END ==
PROVIDERS: PCP Family Medicine; Visit Provider Family Medicine
DX: I10 Essential (primary) hypertension (principal)
CPT/HCPCS: 36415; 80048

== ENCOUNTER → 2020-05-25 08:38 | Outpatient (CLI) | payer MEDICARE, SELFPAY ==
[2020-05-25 10:18] LABS: Alanine Aminotransferase 23 IU/L (<50); Albumin 4.4 g/dL (3.5-5.0); Albumin Globulin Ratio 1.4 (1.0-2.8); Alkaline Phosphatase 62 U/L (38-126); Aspartate Aminotransferase 41 IU/L (17-59); BUN Creatinine Ratio 19.1 (6-22); Bilirubin Total 1.1 mg/dL (0.2-1.3); Blood Urea Nitrogen 17 mg/dL (9-20); Calcium 9.6 mg/dL (8.4-10.2); Carbon Dioxide 27 mmol/L (22-32); Chloride 97 mmol/L (98-107); Cholesterol 196 mg/dL (140-199); Creatine Kinase 274 U/L (55-170); Estimated Glomerular Filt Rate > 60.0 mL/min (>60); Globulin 3.1 g/dL (1.7-4.1); Glucose 109 mg/dL (80-110); HDL Cholesterol 49 mg/dL (40-60); HEMOLYSIS < 15 (0-50); LDL Cholesterol Calculated 131 mg/dL (<100); Potassium 4.3 mmol/L (3.4-5.1); Sodium 134 mmol/L (137-145); Total Protein 7.5 g/dL (6.3-8.2); Triglycerides 81 mg/dL (35-150)
[2020-05-25 11:22] LABS: Free T3, Triiodothyronine Free 3.04 pg/mL (2.77-5.27); Free T4, Direct Thyroxine 1.14 ng/dL (0.78-2.19)
[2020-05-25 11:35] LABS: Thyroid Stimulating Hormone 2.62 uIU/mL (0.47-4.68)
[2020-05-26 21:40] LABS: Anti Thyroglobulin Antibody <1.0 IU/mL (0.0-0.9)
[2020-05-30 00:36] LABS: Triiodothyronine T3 Reverse 21.4 ng/dL (9.2-24.1)
== END ==
PROVIDERS: PCP Family Medicine; Referring Provider Family Medicine; Visit Provider Family Medicine
DX: E03.9 Hypothyroidism, unspecified (principal); E78.5 Hyperlipidemia, unspecified; G72.0 Drug-induced myopathy; I10 Essential (primary) hypertension; T46.6X5A Adverse effect of antihyperlipidemic and antiarteriosclerotic drugs, initial encounter
CPT/HCPCS: 36415; 80053; 80061; 82550; 84439; 84443; 84481; 84482; 86800

== ENCOUNTER → 2020-05-28 07:35 | Outpatient (CLI) | payer MEDICARE, SELFPAY ==
--- NOTE | 2020-05-28 07:36 | DI.US.S_ITS ---
PROCEDURE: US THYROID INDICATIONS: NODULES TECHNIQUE: Real-time scanning was performed of the thyroid gland, with image documentation. COMPARISON: [facility], US, US THYROID, 04/26/2019, 10:38. FINDINGS: Right: Thyroid lobe measures 4.2 x 1.8 x 1.2 cm, and is homogeneous in echotexture. Left: Thyroid lobe measures 3.6 x 1.0 x 1.3 cm, and is homogenous in echotexture. Isthmus: 2.2 mm thick. Nodule number: 1 Location: Left mid Size: Unchanged at 1.0 x 0.7 x 0.7 cm. Composition: Predominantly solid Echogenicity: Hypoechoic Shape: wider than tall. Margins: Smooth Echogenic foci: Macrocalcification Total points: 6 ACR TI-RADS category: Moderately suspicious Nodule number: 2 Location: Right mid Size: Unchanged 0.7 x 0.7 x 0.5 cm. Composition: Predominantly solid Echogenicity: Hypoechoic Shape: wider than tall. Margins: Smooth Echogenic foci: None Total points: 4 ACR TI-RADS category: Moderately suspicious Nodule number: 3 Location: Right superior Size: 0.8 x 0.5 x 0.5 cm. Composition: Predominantly solid Echogenicity: Isoechoic Shape: wider than tall. Margins: Smooth Echogenic foci: None Total points: 3 ACR TI-RADS category: Mildly suspicious Nodule number: 4 Location: Right medial Size: 0.6 x 0.5 x 0.5 cm. Composition: Solid Echogenicity: Isoechoic Shape: wider than tall. Margins: Smooth Echogenic foci: None Total points: 3 ACR TI-RADS category: Mildly suspicious IMPRESSION: Stable appearance of left thyroid nodules and there are 2 new sub 5 mm right thyroid nodules as above. Recommend continued followup ultrasound as detailed below. ACR TI-RADS definitions and recommendations: TI-RADS 1 (benign): 0 points. FNA not needed. TI-RADS 2 (not suspicious): 2 points. FNA not needed. TI-RADS 3 (mildly suspicious): 3 points. * FNA if 2.5 cm or larger, follow up if 1.5 cm or larger (at 1, 3, and 5 years). TI-RADS 4 (moderately suspicious): 4-6 points. * FNA if 1.5 cm or larger, follow up if 1 cm or larger (at 1, 2, 3, and 5 years). TI-RADS 5 (highly suspicious): 7 points or more. * FNA if 1 cm or larger, follow up if 0.5 cm or larger (every year for 5 years). Dictated by: Jameson CORTEZ Interpreted: Fitz Mensah MD on 05/28/2020 at 14:47 Approved by: Fitz Mensah M.D. on 05/28/2020 at 17:40
== END ==
PROVIDERS: PCP Family Medicine; Referring Provider Family Medicine; Visit Provider Family Medicine
DX: E04.2 Nontoxic multinodular goiter (principal)
CPT/HCPCS: 76536

== ENCOUNTER → 2020-12-27 13:54 | Outpatient (CLI) | payer MEDICARE, SELFPAY ==
[2020-12-27] MEDS: COVID-19 VACC, Ad26(JANSSEN)/PF 0.5 ML IM (14:19)
== END ==
PROVIDERS: PCP Family Medicine; Visit Provider Internal Medicine
DX: Z23 Encounter for immunization (principal)
CPT/HCPCS: 0031A; 91303

== ENCOUNTER → 2021-03-11 10:46 | Outpatient (CLI) | payer MEDICARE, SELFPAY ==
--- NOTE | 2021-03-11 10:48 | DI.RAD.S_ITS ---
PROCEDURE: XR CERVICAL SPINE 2V OR 3V INDICATIONS: neck pain TECHNIQUE: 3 view(s) of the cervical spine were acquired. COMPARISON: None. FINDINGS: Bones: Vertebral body height and alignment is maintained. There is disc space narrowing and facet arthropathy throughout the exam particularly in the mid cervical spine. Craniovertebral a shapes and bone mineralization unremarkable. Soft tissues: No prevertebral soft tissue swelling. IMPRESSION: Multilevel degenerative disc disease and arthropathy without evidence of fracture or malalignment. Dictated by: Edinson Hope M.D. on 03/11/2021 at 15:19 Approved by: Edinson Hope M.D. on 03/11/2021 at 15:21
== END ==
PROVIDERS: PCP Family Medicine; Referring Provider Family Medicine; Visit Provider Family Medicine
DX: M54.2 Cervicalgia (principal); M47.812 Spondylosis without myelopathy or radiculopathy, cervical region
CPT/HCPCS: 72040

== ENCOUNTER → 2021-04-11 07:26 | Outpatient (CLI) | payer MEDICARE, SELFPAY ==
[2021-04-11 07:58] LABS: Add Manual Diff / Slide Review NO; Basophils Absolute Auto 0 /uL (0-100); Basophils Percent Auto 0.8 % (0-2); Eosinophils Absolute Auto 200 /uL (0-450); Eosinophils Percent Auto 3.3 % (2-4); Hemoglobin 13.8 g/dL (13.5-17.5); Lymphocytes Absolute Auto 1200 /uL (1100-4500); Lymphocytes Percent Auto 25.3 % (25-40); Mean Corpuscular HGB Conc 33.6 % (30-36); Mean Corpuscular Hemoglobin 29.1 PG (26-34); Mean Corpuscular Volume 86.6 fL (80-100); Monocytes Absolute Auto 500 /uL (0-900); Monocytes Percent Auto 10.6 % (3-14); Neutrophils Absolute Auto 2900 /uL (1500-7000); Platelet Count 168 X10^3/uL (150-400); Red Blood Cell Count 4.73 X10^6/uL (4.5-5.9); Red Cell Distribution Width 13.3 % (11.6-14.8); White Blood Cell Count 4.8 X10^3/uL (4.5-11.0)
[2021-04-11 08:54] LABS: TSH w/ Reflex to FT4 2.68 uIU/mL (0.47-4.68)
[2021-04-11 10:55] LABS: Alanine Aminotransferase 20 IU/L (<50); Albumin Globulin Ratio 1.4 (1.0-2.8); Alkaline Phosphatase 63 U/L (38-126); Aspartate Aminotransferase 45 IU/L (17-59); BUN Creatinine Ratio 24.7 (6-22); Bilirubin Total 0.8 mg/dL (0.2-1.3); Blood Urea Nitrogen 22 mg/dL (9-20); Calcium 9.3 mg/dL (8.4-10.2); Carbon Dioxide 26 mmol/L (22-32); Chloride 104 mmol/L (98-107); Estimated Glomerular Filt Rate > 60.0 mL/min (>60); Globulin 2.9 g/dL (1.7-4.1); Glucose 110 mg/dL (80-110); HEMOLYSIS 36 (0-50); Potassium 4.6 mmol/L (3.4-5.1); Sodium 137 mmol/L (137-145); Total Protein 6.9 g/dL (6.3-8.2)
== END ==
PROVIDERS: PCP Family Medicine; Referring Provider Family Medicine; Visit Provider Family Medicine
DX: E03.9 Hypothyroidism, unspecified (principal); E78.5 Hyperlipidemia, unspecified; E87.1 Hypo-osmolality and hyponatremia; I10 Essential (primary) hypertension; R73.03 Prediabetes
CPT/HCPCS: 36415; 80053; 84443; 85025

== ENCOUNTER → 2021-04-15 15:43 | Outpatient (CLI) | payer MEDICARE, SELFPAY ==
[2021-04-15 15:53] LABS: Cholesterol 208 mg/dL (140-199); HDL Cholesterol 54 mg/dL (40-60); LDL Cholesterol Calculated 137 mg/dL (<100); Triglycerides 84 mg/dL (35-150)
== END ==
PROVIDERS: PCP Family Medicine; Visit Provider Family Medicine
DX: E78.5 Hyperlipidemia, unspecified (principal)
CPT/HCPCS: 80061

== ENCOUNTER 2021-07-18 15:00 | Outpatient (RCR) | payer MEDICARE, SELFPAY ==
--- NOTE | 2021-05-14 16:32 | PT.OIE ---
Current Diagnoses Cervicalgia (05/14/21) Muscle weakness (generalized) (05/14/21) Past Medical History (Last Reviewed 10/24/19 @ 14:49 by Alexandr Schneider MD) Atrial fibrillation (2002) Atrial fibrillation with controlled ventricular response (07/07/11) BCC (basal cell carcinoma of skin) (2013) Cataract (2013) Central sleep apnea Chicken pox History of basal cell carcinoma excision (2013) History of orthopedic surgery (2012) History of thumb surgery (~1952) Hyperlipidemia (07/07/11) Hyperlipidemia Hypertension Hypertension Hypothyroidism Measles Multinodular goiter (11/16/15) Mumps Obstructive sleep apnea Rupture of left triceps tendon (2012) Sleep apnea (2003) 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 Past Surgical History (Last Reviewed 10/24/19 @ 14:49 by Alexandr Schneider MD) Anesthesia History of basal cell carcinoma excision (2013) History of cataract removal with insertion of prosthetic lens (10/2014) History of orthopedic surgery (2012) History of thumb surgery (~1952) Visit Care Team Role Provider Type Lelo Elkins DO Attending Provider Physician Primary Care Provider Referring Provider Specialty: [facility] Address: [address] [place] [address], [address], [facility] Email: [email or web address] Physical Therapy Initial Evaluation PT-OP-A Visit Information Start: 05/13/21 17:17 Freq: Status: Active Protocol: Document 05/14/21 15:07 LRN (Rec: 05/14/21 16:30 LRN [id number]) Out-Patient Physical Therapy Visit Information Visit Information Visit Type Initial Evaluation Visit Start Time 15:07 Visit Stop Time 15:57 Total Visit Minutes 50 Visit Number 1 Evaluation Information Evaluation Date 05/14/21 Precautions Precautions arthritis, neuropathy of feet (pain, tingling, numbness), HBP & A. Fib controlled by medications (warfarin, lisinopril), hearing problems, neck pain for 15 yrs. PT-OP-B Current Condition Start: 05/13/21 17:17 Freq: Status: Active Protocol: Document 05/14/21 15:07 LRN (Rec: 05/14/21 16:30 LRN [id number]) Current Condition History of Current Condition Onset Date 4 months ago. Current Complaints L sided neck pain with bilateral neck tightness. History of Current Condition Neck problems for 15 yrs. Was given ex's by chiropractor, but has been having trouble looking behind to back up to left. 4 months ago has been having sharp pain on L side of neck while turning the head either direction. Went to chiropractor but he suggested an X-ray and it showed normal bone structure, so was referred to physical therapy. Meantime started doing massage 1x/week and accupuncture that seems to have relieved the pain down the neck and back and sometimes is able to turn the head without the pain, but sometimes has pain. 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 Retired agricultural banking. Developmental History Developmental History Lives on [facility]. Treatment Goals Patient/Caregiver Goals Pt goal is to be able to rotate head at least 35 deg's to improve driving and biking ability. Pt goal is to be able to wake in morning without L sided neck pain. Prior Functional Status Baseline Function- ADL's Independent Baseline Function- Mobility Independent Current Functional Impairments (Reported) Functional Limitations- ADL's Difficulty rotating head for driving or biking. Wakes in morning with stiff neck (side sleeper) Functional Limitations- Recreation/ Riding street bike difficulty Hobbies Functional Limitations- Other Difficulty driving Personal Factors Other Personal Factors That May Effect 15 yr chronic neck pain Therapy/Recovery history, controlled A.Fib/HBP. Having at same time having massage (1x/week) and accupuncture (2 more appts) treatments. PT-OP-C Subjective Start: 05/13/21 17:17 Freq: Status: Active Protocol: Document 05/14/21 15:07 LRN (Rec: 05/14/21 16:30 LRN [id number]) Patient Questionnaires Neck Disability Index NDI Score 8 Neck Disability Index Impairment 1 to 19% Impaired (Score 1-9) Quick Dash- Upper Extremity Quick Dash UE Score 0 Quick Dash UE Impairment 0% Impaired (Score 0) OP-PT Pain Assessment Pain Assessment Grid Paper Pain Assessment Grid Completed Yes Location L side of neck Pain Location Details L side of neck Intensity 3 Scale Used Numeric (0 - 10) Description Sharp,With Movement Description- Other Tightness on R side, sometimes headaches. Frequency Intermittent Pain Aggravating Factors Changing Position Other Pain Aggravating Factors Moving out of nighttime positioning Pain Alleviating Factors None PT-OP-H Neuro Start: 05/13/21 17:17 Freq: Status: Active Protocol: Document 05/14/21 15:07 LRN (Rec: 05/14/21 16:30 LRN [id number]) Sensation Evaluation Gross Sensation Gross Sensation WNL PT-OP-J Posture/Palpation/Skin Start: 05/13/21 17:17 Freq: Status: Active Protocol: Document 05/14/21 15:07 LRN (Rec: 05/14/21 16:30 LRN [id number]) Posture Evaluation Position Sitting Head/C-Spine Posture Forward Head Shoulder Posture (L) Elevated Pelvis Posture Anteriorly Tilted Knee Posture (L) Excess Flexion,(R) Excess Flexion Palpation Assessment Location Neck Palpation Location Subocciptal reg, C3, C4, C5 L TP & C6 cheryl TP tenderness Palpation Findings Tenderness Palpation Details Decreased joint mobility, limited by pain at C1 though C7. Decreased First rib mobility. PT-OP-K Range of Motion Start: 05/13/21 17:17 Freq: Status: Active Protocol: Document 05/14/21 15:07 LRN (Rec: 05/14/21 16:30 LRN [id number]) Cervical Spine Range of Motion Cervical Spine Active Degrees Testing Position Sitting Flexion 5 Extension 25 Rotation Left 3 Rotation Right 35 Lateral Flexion Left 3 Lateral Flexion Right 5 ROM Limitations Pain Shoulder Goniometric Range of Motion Shoulder Right Active Shoulder ROM WFL Yes Testing Position Sitting Left Active Shoulder ROM WFL Yes Testing Position Sitting PT-OP-L Special Tests Start: 05/13/21 17:17 Freq: Status: Active Protocol: Document 05/14/21 15:07 LRN (Rec: 05/14/21 16:30 LRN [id number]) Special Tests Cervical Spine Special Tests Traction Test Results + Comments Decrease in neck pain. Vertebral Artery Test Results Negative bilaterally PT-OP-M Strength Start: 05/13/21 17:17 Freq: Status: Active Protocol: Document 05/14/21 15:07 LRN (Rec: 05/14/21 16:30 LRN [id number]) Cervical Spine Strength Cervical Spine Manual Muscle Testing Testing Position Sitting Flexion (C1-2) 5 Normal Extension 5 Normal Rotation Left 3+ Fair+ Rotation Right 4 Good Lateral Flexion Left (C3) 5 Normal Lateral Flexion Right (C3) 5 Normal Shoulder Strength Shoulder Manual Muscle Testing Right Comments Generally 5/5 Left Comments Generally 5/5 PT-OP-Q Treatments Start: 05/13/21 17:17 Freq: Status: Active Protocol: Document 05/14/21 15:07 LRN (Rec: 05/14/21 16:30 LRN [id number]) Self-Care/Home Management Treatment Education Patient Education Home Exercise Program,Pain Management Other Education Discussed results of evaluation, goals and plan of care. Pt agreeable to goals and POC. Discussed use of modalities before and after exercise, recommending pt try ice with pain and use of heat prior to cervical AROM ex's. Activities Self-Care/Home Management Activities I/S and showed pt HEP: Active C. rotation and SB. PT-OP-T Assessment and Plan Start: 05/13/21 17:17 Freq: Status: Active Protocol: Document 05/14/21 15:07 LRN (Rec: 05/14/21 16:30 LRN [id number]) Physical Therapy Assessment Rehab Potential Rehabilitation Potential Good Evaluation Complexity Number of Personal Factors/Comorbidities 1-2 Number of Body Systems Impaired 4 or More Clinical Presentation at Evaluation Evolving Impairments Impairments Functional Mobility,Pain,ROM, Strength Goals Three Impairment L sided Neck pain with rotation and waking first in the morning (3/10) Short Term Goal (STG) Decrease pain with cervical rotation to 1/10 STG Duration 06/15/21 Funeral Workers Goal (LTG) Pt will be able to wake in morning without L sided neck pain. LTG Duration 07/13/21 Two Impairment Decreased Neck rotation AROM limiting driving & biking Impairment AROM (sitting): rotation: 35 deg's right, 3 deg's left SB: 3 deg's left, 5 deg's right Flex: 5 deg's, Ext: 25 deg's Short Term Goal (STG) Improve cervical AROM 5-10 deg 's. STG Duration 06/15/21 Halfway Goal (LTG) Pt goal is to be able to rotate head at least 35 deg's bilaterally to improve safety with driving and biking. LTG Duration 07/13/21 One Impairment Lacks appropriate self care program. Short Term Goal (STG) Pt will be independent in a self care neck mobility ex program. Funeral Workers Goal (LTG) Pt will be independent in a self care HEP of ROM, strengthening and postural ex' s. LTG Duration 07/13/21 Assessment Summary Assessment Pt presents with Cervical joint and upper rib stiffness with pain and decreased head/ neck mobility. Pt also presents with soft tissue dysfunction with tightness primarily on the L side of the neck and upper back with elevated L scapula. Pt limited in neck mobility and function due to pain primarily on the L side. The pt will benefit from skilled physical therapy to achieve the above stated goals. Physical Therapy Plan Frequency and Duration Frequency of Treatment 2x/Week Plan of Care Start Date 05/14/21 Plan of Care End Date 07/13/21 Therapeutic Interventions Therapeutic Interventions Home Exercise Program,Joint Mobilizations,Manual Therapy, Neuromuscular Re-education, Patient/Caregiver Education, Self-Care/Home Management,Soft Tissue Mobilization, Therapeutic Activities, Therapeutic Exercises Modalities Cold Pack/Ice Massage,Electric Stimulation,Hot Packs, Ultrasound Other Therapeutic Interventions Manual traction Next Visit Focus/Plan Next Note Type Treatment Note Next Visit Plan Review HEP and issue handouts for active chin tuck w/C rot & SB. Add HEP: C flex, ext, stretch: scalenes, UT. Pt education in proper sleep positioning. Manual STM & traction, STM of UT, Lev Scap, Scalenes, SCM. Strengthening of scapular depressor. MWM for rotation.
--- NOTE | 2021-05-14 16:33 | PT.OPPOC ---
Physical, Occupational & Speech Therapy At [facility] Current Diagnoses Cervicalgia (05/14/21) Muscle weakness (generalized) (05/14/21) Visit Care Team Role Provider Type Lelo Elkins DO Attending Provider Physician Primary Care Provider Referring Provider Specialty: [facility] Practice Address: [address] [place] [address], [address], [facility] Email: [email or web address] Plan Of Care PT-OP-T Assessment and Plan Start: 05/13/21 17:17 Freq: Status: Active Protocol: Document 05/14/21 15:07 LRN (Rec: 05/14/21 16:30 LRN [id number]) Physical Therapy Assessment Rehab Potential Rehabilitation Potential Good Evaluation Complexity Number of Personal Factors/Comorbidities 1-2 Number of Body Systems Impaired 4 or More Clinical Presentation at Evaluation Evolving Impairments Impairments Functional Mobility,Pain,ROM, Strength Goals Three Impairment L sided Neck pain with rotation and waking first in the morning (3/10) Short Term Goal (STG) Decrease pain with cervical rotation to 1/10 STG Duration 06/15/21 Mercury Cell Cleaner Goal (LTG) Pt will be able to wake in morning without L sided neck pain. LTG Duration 07/13/21 Two Impairment Decreased Neck rotation AROM limiting driving & biking Impairment AROM (sitting): rotation: 35 deg's right, 3 deg's left SB: 3 deg's left, 5 deg's right Flex: 5 deg's, Ext: 25 deg's Short Term Goal (STG) Improve cervical AROM 5-10 deg 's. STG Duration 06/15/21 Alf Goal (LTG) Pt goal is to be able to rotate head at least 35 deg's bilaterally to improve safety with driving and biking. LTG Duration 07/13/21 One Impairment Lacks appropriate self care program. Short Term Goal (STG) Pt will be independent in a self care neck mobility ex program. Mercury Cell Cleaner Goal (LTG) Pt will be independent in a self care HEP of ROM, strengthening and postural ex' s. LTG Duration 07/13/21 Assessment Summary Assessment Pt presents with Cervical joint and upper rib stiffness with pain and decreased head/ neck mobility. Pt also presents with soft tissue dysfunction with tightness primarily on the L side of the neck and upper back with elevated L scapula. Pt limited in neck mobility and function due to pain primarily on the L side. The pt will benefit from skilled physical therapy to achieve the above stated goals. Physical Therapy Plan Frequency and Duration Frequency of Treatment 2x/Week Plan of Care Start Date 05/14/21 Plan of Care End Date 07/13/21 Therapeutic Interventions Therapeutic Interventions Home Exercise Program,Joint Mobilizations,Manual Therapy, Neuromuscular Re-education, Patient/Caregiver Education, Self-Care/Home Management,Soft Tissue Mobilization, Therapeutic Activities, Therapeutic Exercises Modalities Cold Pack/Ice Massage,Electric Stimulation,Hot Packs, Ultrasound Other Therapeutic Interventions Manual traction Next Visit Focus/Plan Next Note Type Treatment Note Next Visit Plan Review HEP and issue handouts for active chin tuck w/C rot & SB. Add HEP: C flex, ext, stretch: scalenes, UT. Pt education in proper sleep positioning. Manual STM & traction, STM of UT, Lev Scap, Scalenes, SCM. Strengthening of scapular depressor. MWM for rotation. Plan of Care Dates Plan of Care Start Date 05/14/21 Plan of Care End Date 07/13/21 Electronically Signed by: Kisha Deras, PT 05/14/21 [id number] Please Sign and Return: I have reviewed this Plan of Care and certify that the skilled therapy services above are required to meet the patient?s needs. Physician Signature Date Printed Name and Credentials Clinical Instructor Signature Printed Name and Credentials
--- NOTE | 2021-05-17 15:03 | PT.OTN ---
Current Diagnoses Cervicalgia (05/17/21) Muscle weakness (generalized) (05/17/21) Physical Therapy Treatment Note PT-OP-A Visit Information Start: 05/13/21 17:17 Freq: Status: Active Protocol: Document 05/17/21 12:33 LRN (Rec: 05/17/21 13:36 LRN [id number]) Out-Patient Physical Therapy Visit Information Visit Information Visit Type Treatment Note Visit Start Time 12:46 Visit Stop Time 13:36 Total Visit Minutes 50 Visit Number 2 Evaluation Information Evaluation Date 05/14/21 Precautions Precautions arthritis, neuropathy of feet (pain, tingling, numbness), HBP & A. Fib controlled by medications (warfarin, lisinopril), hearing problems, neck pain for 15 yrs. PT-OP-B Current Condition Start: 05/13/21 17:17 Freq: Status: Active Protocol: Document 05/14/21 15:07 LRN (Rec: 05/14/21 16:30 LRN [id number]) Current Condition History of Current Condition Onset Date 4 months ago. Current Complaints L sided neck pain with bilateral neck tightness. History of Current Condition Neck problems for 15 yrs. Was given ex's by chiropractor, but has been having trouble looking behind to back up to left. 4 months ago has been having sharp pain on L side of neck while turning the head either direction. Went to chiropractor but he suggested an X-ray and it showed normal bone structure, so was referred to physical therapy. Meantime started doing massage 1x/week and accupuncture that seems to have relieved the pain down the neck and back and sometimes is able to turn the head without the pain, but sometimes has pain. 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 Retired agricultural banking. Developmental History Developmental History Lives on [facility]. Treatment Goals Patient/Caregiver Goals Pt goal is to be able to rotate head at least 35 deg's to improve driving and biking ability. Pt goal is to be able to wake in morning without L sided neck pain. Prior Functional Status Baseline Function- ADL's Independent Baseline Function- Mobility Independent Current Functional Impairments (Reported) Functional Limitations- ADL's Difficulty rotating head for driving or biking. Wakes in morning with stiff neck (side sleeper) Functional Limitations- Recreation/ Riding street bike difficulty Hobbies Functional Limitations- Other Difficulty driving Personal Factors Other Personal Factors That May Effect 15 yr chronic neck pain Therapy/Recovery history, controlled A.Fib/HBP. Having at same time having massage (1x/week) and accupuncture (2 more appts) treatments. PT-OP-C Subjective Start: 05/13/21 17:17 Freq: Status: Active Protocol: Document 05/17/21 12:33 LRN (Rec: 05/17/21 13:36 LRN [id number]) OP-PT Subjective Patient Comments Patient Comments Wasn't much pain until riding the bike here to therapy. Had massage therapy after last session. Didn't notice a difference in use of heat or ice to the neck. PT-OP-H Neuro Start: 05/13/21 17:17 Freq: Status: Active Protocol: Document 05/14/21 15:07 LRN (Rec: 05/14/21 16:30 LRN [id number]) Sensation Evaluation Gross Sensation Gross Sensation WNL PT-OP-J Posture/Palpation/Skin Start: 05/13/21 17:17 Freq: Status: Active Protocol: Document 05/14/21 15:07 LRN (Rec: 05/14/21 16:30 LRN [id number]) Posture Evaluation Position Sitting Head/C-Spine Posture Forward Head Shoulder Posture (L) Elevated Pelvis Posture Anteriorly Tilted Knee Posture (L) Excess Flexion,(R) Excess Flexion Palpation Assessment Location Neck Palpation Location Subocciptal reg, C3, C4, C5 L TP & C6 espinoza TP tenderness Palpation Findings Tenderness Palpation Details Decreased joint mobility, limited by pain at C1 though C7. Decreased First rib mobility. PT-OP-K Range of Motion Start: 05/13/21 17:17 Freq: Status: Active Protocol: Document 05/14/21 15:07 LRN (Rec: 05/14/21 16:30 LRN [id number]) Cervical Spine Range of Motion Cervical Spine Active Degrees Testing Position Sitting Flexion 5 Extension 25 Rotation Left 3 Rotation Right 35 Lateral Flexion Left 3 Lateral Flexion Right 5 ROM Limitations Pain Shoulder Goniometric Range of Motion Shoulder Right Active Shoulder ROM WFL Yes Testing Position Sitting Left Active Shoulder ROM WFL Yes Testing Position Sitting PT-OP-L Special Tests Start: 05/13/21 17:17 Freq: Status: Active Protocol: Document 05/14/21 15:07 LRN (Rec: 05/14/21 16:30 LRN [id number]) Special Tests Cervical Spine Special Tests Traction Test Results + Comments Decrease in neck pain. Vertebral Artery Test Results Negative bilaterally PT-OP-M Strength Start: 05/13/21 17:17 Freq: Status: Active Protocol: Document 05/14/21 15:07 LRN (Rec: 05/14/21 16:30 LRN [id number]) Cervical Spine Strength Cervical Spine Manual Muscle Testing Testing Position Sitting Flexion (C1-2) 5 Normal Extension 5 Normal Rotation Left 3+ Fair+ Rotation Right 4 Good Lateral Flexion Left (C3) 5 Normal Lateral Flexion Right (C3) 5 Normal Shoulder Strength Shoulder Manual Muscle Testing Right Comments Generally 5/5 Left Comments Generally 5/5 PT-OP-Q Treatments Start: 05/13/21 17:17 Freq: Status: Active Protocol: Document 05/17/21 12:33 LRN (Rec: 05/17/21 13:36 LRN [id number]) Therapeutic Exercises Sitting Exercises C rot Sitting Exercise Name AROM Side bilateral Reps/Minutes 10 H x 10 Comments Stopped due to neck pain. Pt moved slow thru ex due to pain C SB Sitting Exercise Name AROM Side bilateral Reps/Minutes 5-10 H Comments Stopped due to incr L neck pn, not able to minimize pn w/ex modification C Flex Sitting Exercise Name AROM Reps/Minutes 5x Comments Stopped due to in creased pain on return C. Ext Sitting Exercise Name Active > Retractive Side bilateral Reps/Minutes 3x active, 5x with retraction, brief holds Manual Therapy Treatment Soft Tissue Mobilization Cervical Rotators Body Location Cervical Rotators Mobilization Type Myofascial Release Body Position Supine Comments Contract/relax (using eyes, then head) stretch into L cervical rotation. Cervical Paraspinals Body Location Espinoza C/S Paraspinals. Mobilization Type Strumming Intensity/Depth Moderate Body Position Supine nECK Body Location Neck subocciptal release Mobilization Type Sustained Pressure Intensity/Depth Superficial Body Position Supine Self-Care/Home Management Treatment Education Patient Education Home Exercise Program Other Education Educated pt in proper head/ neck positioning for sleeping in supine and sidelie. Introduced modifications of extra pillow for rolling onto sides. Educated pt in cervical mechanics & possible reasons for limitation with use of spine model. Activities Self-Care/Home Management Activities HEP issued & reviewed: Neck stretches: retraction/ext, rotation, and posturing against wall. PT-OP-R Modalities Start: 05/13/21 17:17 Freq: Status: Active Protocol: Document 05/17/21 12:33 LRN (Rec: 05/17/21 13:36 LRN [id number]) Hot Pack/Cold Pack Treatment Cold Pack Location Neck Patient Position Supine Treatment Duration (minutes) 10 PT-OP-T Assessment and Plan Start: 05/13/21 17:17 Freq: Status: Active Protocol: Document 05/17/21 12:33 LRN (Rec: 05/17/21 13:36 LRN [id number]) Physical Therapy Assessment Goals Three Impairment L sided Neck pain with rotation and waking first in the morning (12/26) Short Term Goal (STG) Decrease pain with cervical rotation to 10 STG Duration 06/15/21 Medical Transcriptionist Goal (LTG) Pt will be able to wake in morning without L sided neck pain. LTG Duration 07/13/21 Two Impairment Decreased Neck rotation AROM limiting driving & biking Impairment AROM (sitting): rotation: 35 deg's right, 3 deg's left SB: 3 deg's left, 5 deg's right Flex: 5 deg's, Ext: 25 deg's Short Term Goal (STG) Improve cervical AROM 5-10 deg 's. STG Duration 06/15/21 Medical Transcriptionist Goal (LTG) Pt goal is to be able to rotate head at least 35 deg's bilaterally to improve safety with driving and biking. LTG Duration 07/13/21 One Impairment Lacks appropriate self care program. Short Term Goal (STG) Pt will be independent in a self care neck mobility ex program. (05/17/21: Issued HEP for C rot & ext/retraction, held flex/ext & SB due to pain) STG Duration (05/17/21: Progressing) Residential Goal (LTG) Pt will be independent in a self care HEP of ROM, strengthening and postural ex' s. LTG Duration 07/13/21 (05/17/21: Progressed ROM ex) Assessment Summary Assessment Pt demonstrated improve symmetry of neck mobility with rotation after contract/relax stretching into L rotation of ~25 deg's. He has quite a bit of pain with all movements due to pain on return. He is also quite tender in the suboccipital region bilaterally. Pt rides his bike that is somewhat short for him (as reported by the patient) and he has increased neck pain after riding the bike. He avoids having to look around with the use of mirrors but C/S rotation is severely limited. Pt may need to limit biking if post cycling pain persists. Physical Therapy Plan Frequency and Duration Frequency of Treatment 2x/Week Plan of Care Start Date 05/14/21 Plan of Care End Date 07/13/21 Next Visit Focus/Plan Next Note Type Treatment Note Next Visit Plan Assess response to HEP issued for active chin Curly clarke & review standing postural ex. Monitor for addition of HEP: Active C flex/ext and for Stretch: scalenes, UT. Pt education in proper sleep positioning. Manual STM & traction, STM of UT, Lev Scap, Scalenes, SCM. Strengthening of scapular depressor. MWM for rotation.
--- NOTE | 2021-05-20 16:42 | PT.OTN ---
Current Diagnoses Cervicalgia (05/20/21) Muscle weakness (generalized) (05/20/21) Physical Therapy Treatment Note PT-OP-A Visit Information Start: 05/13/21 17:17 Freq: Status: Active Protocol: Document 05/20/21 15:15 LRN (Rec: 05/20/21 16:12 LRN [id number]) Out-Patient Physical Therapy Visit Information Visit Information Visit Type Treatment Note Visit Start Time 15:15 Visit Stop Time 15:55 Total Visit Minutes 40 Visit Number 3 Evaluation Information Evaluation Date 05/14/21 Precautions Precautions arthritis, neuropathy of feet (pain, tingling, numbness), HBP & A. Fib controlled by medications (warfarin, lisinopril), hearing problems, neck pain for 15 yrs. PT-OP-B Current Condition Start: 05/13/21 17:17 Freq: Status: Active Protocol: Document 05/14/21 15:07 LRN (Rec: 05/14/21 16:30 LRN [id number]) Current Condition History of Current Condition Onset Date 4 months ago. Current Complaints L sided neck pain with bilateral neck tightness. History of Current Condition Neck problems for 15 yrs. Was given ex's by chiropractor, but has been having trouble looking behind to back up to left. 4 months ago has been having sharp pain on L side of neck while turning the head either direction. Went to chiropractor but he suggested an X-ray and it showed normal bone structure, so was referred to physical therapy. Meantime started doing massage 1x/week and accupuncture that seems to have relieved the pain down the neck and back and sometimes is able to turn the head without the pain, but sometimes has pain. 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 Retired agricultural banking. Developmental History Developmental History Lives on [facility]. Treatment Goals Patient/Caregiver Goals Pt goal is to be able to rotate head at least 35 deg's to improve driving and biking ability. Pt goal is to be able to wake in morning without L sided neck pain. Prior Functional Status Baseline Function- ADL's Independent Baseline Function- Mobility Independent Current Functional Impairments (Reported) Functional Limitations- ADL's Difficulty rotating head for driving or biking. Wakes in morning with stiff neck (side sleeper) Functional Limitations- Recreation/ Riding street bike difficulty Hobbies Functional Limitations- Other Difficulty driving Personal Factors Other Personal Factors That May Effect 15 yr chronic neck pain Therapy/Recovery history, controlled A.Fib/HBP. Having at same time having massage (1x/week) and accupuncture (2 more appts) treatments. PT-OP-C Subjective Start: 05/13/21 17:17 Freq: Status: Active Protocol: Document 05/20/21 15:15 LRN (Rec: 05/20/21 16:12 LRN [id number]) OP-PT Subjective Patient Comments Patient Comments Was feeling good this morning until waking up and did his exercise. Neck pain is 8/10 to start and 4/10 to end. Had accupuncture appt this morning , but states didn't help too much. PT-OP-H Neuro Start: 05/13/21 17:17 Freq: Status: Active Protocol: Document 05/14/21 15:07 LRN (Rec: 05/14/21 16:30 LRN [id number]) Sensation Evaluation Gross Sensation Gross Sensation WNL PT-OP-J Posture/Palpation/Skin Start: 05/13/21 17:17 Freq: Status: Active Protocol: Document 05/14/21 15:07 LRN (Rec: 05/14/21 16:30 LRN [id number]) Posture Evaluation Position Sitting Head/C-Spine Posture Forward Head Shoulder Posture (L) Elevated Pelvis Posture Anteriorly Tilted Knee Posture (L) Excess Flexion,(R) Excess Flexion Palpation Assessment Location Neck Palpation Location Subocciptal reg, C3, C4, C5 L TP & C6 espinoza TP tenderness Palpation Findings Tenderness Palpation Details Decreased joint mobility, limited by pain at C1 though C7. Decreased First rib mobility. PT-OP-K Range of Motion Start: 05/13/21 17:17 Freq: Status: Active Protocol: Document 05/20/21 15:15 LRN (Rec: 05/20/21 16:12 LRN [id number]) Cervical Spine Range of Motion Cervical Spine Active Degrees Testing Position Supine Rotation Left 25 Rotation Right 25 PT-OP-L Special Tests Start: 05/13/21 17:17 Freq: Status: Active Protocol: Document 05/14/21 15:07 LRN (Rec: 05/14/21 16:30 LRN [id number]) Special Tests Cervical Spine Special Tests Traction Test Results + Comments Decrease in neck pain. Vertebral Artery Test Results Negative bilaterally PT-OP-M Strength Start: 05/13/21 17:17 Freq: Status: Active Protocol: Document 05/14/21 15:07 LRN (Rec: 05/14/21 16:30 LRN [id number]) Cervical Spine Strength Cervical Spine Manual Muscle Testing Testing Position Sitting Flexion (C1-2) 5 Normal Extension 5 Normal Rotation Left 3+ Fair+ Rotation Right 4 Good Lateral Flexion Left (C3) 5 Normal Lateral Flexion Right (C3) 5 Normal Shoulder Strength Shoulder Manual Muscle Testing Right Comments Generally 5/5 Left Comments Generally 5/5 PT-OP-Q Treatments Start: 05/13/21 17:17 Freq: Status: Active Protocol: Document 05/20/21 15:15 LRN (Rec: 05/20/21 16:12 LRN [id number]) Therapeutic Exercises Supine Exercises Hands/Knees Push Supine Exercise Name Hands/Knees Push to replace legs AB/AD scissoring for abdominal ex Reps/Minutes 2' Comments Reviewed pt's HEP for impact on neck Upper trunk flex Supine Exercise Name Curl up with arms reach to ceiling Reps/Minutes 5x Sitting Exercises C rot Sitting Exercise Name AROM and with Self MWM w/towel Side bilateral Reps/Minutes 6' Standing Exercises Wall stand chin tuck Standing Exercise Name Wall stand/chin tuck with rotation Side bilateral Reps/Minutes 8' Comments Extra time for proper max stretch. Manual Therapy Treatment Soft Tissue Mobilization Cervical Rotators Body Location Cervical Rotators Mobilization Type Myofascial Release Body Position Supine Comments Contract/relax (using eyes, then head) stretch into L cervical rotation. Cervical Paraspinals Body Location Espinoza C/S Paraspinals. Mobilization Type Strumming Intensity/Depth Moderate Body Position Supine nECK Body Location Neck subocciptal release Mobilization Type Sustained Pressure Intensity/Depth Superficial Body Position Supine Self-Care/Home Management Treatment Education Other Education Reviewed HEP of neck stretches , and his abdominal ex's as they pertain to his neck. PT-OP-R Modalities Start: 05/13/21 17:17 Freq: Status: Active Protocol: Document 05/17/21 12:33 LRN (Rec: 05/17/21 13:36 LRN [id number]) Hot Pack/Cold Pack Treatment Cold Pack Location Neck Patient Position Supine Treatment Duration (minutes) 10 PT-OP-T Assessment and Plan Start: 05/13/21 17:17 Freq: Status: Active Protocol: Document 05/20/21 15:15 LRN (Rec: 05/20/21 16:12 LRN [id number]) Physical Therapy Assessment Goals Three Impairment L sided Neck pain with rotation and waking first in the morning (12/26) Short Term Goal (STG) Decrease pain with cervical rotation to 1/10 STG Duration 06/15/21 Skilled Nursing Goal (LTG) Pt will be able to wake in morning without L sided neck pain. (05/20/21: Woke for first time this morning without neck pain ). LTG Duration 07/13/21 (05/20/21: met for 1 day this morning) Two Impairment Decreased Neck rotation AROM limiting driving & biking Impairment AROM (sitting): rotation: 35 deg's right, 3 deg's left SB: 3 deg's left, 5 deg's right Flex: 5 deg's, Ext: 25 deg's Short Term Goal (STG) Improve cervical AROM 5-10 deg 's. (05/20/21: Active C rot in sup is 25 deg's bilaterally) STG Duration 06/15/21 (05/20/21: Progressed) Chair And Couch Maker Goal (LTG) Pt goal is to be able to rotate head at least 35 deg's bilaterally to improve safety with driving and biking. LTG Duration 07/13/21 One Impairment Lacks appropriate self care program. Short Term Goal (STG) Pt will be independent in a self care neck mobility ex program. (05/17/21: Issued HEP for C rot & ext/retraction, held flex/ext & SB due to pain) STG Duration (05/17/21: Progressing) Chair And Couch Maker Goal (LTG) Pt will be independent in a self care HEP of ROM, strengthening and postural ex' s. LTG Duration 07/13/21 (05/17/21: Progressed ROM ex) Assessment Summary Assessment Pt needed review with modification of HEP issued for active chin tuck with C rot and wall standing for posture. Scalene stretch, noted L tighter than R side. Pt able to wake this morning feeling like normal. Ex's returned his pain; therefore pt being probably too aggressive with exercise. Physical Therapy Plan Frequency and Duration Frequency of Treatment 2x/Week Plan of Care Start Date 05/14/21 Plan of Care End Date 07/13/21 Next Visit Focus/Plan Next Note Type Treatment Note Next Visit Plan Add to HEP: Active C flex/ext (if appropriate) and Stretches: [place], [place]. Pt education in proper sleep positioning. Manual STM & traction, STM of UT, Lev Scap, Scalenes, SCM. Strengthening of scapular depressor. MWM for rotation, issue HEP.
--- NOTE | 2021-05-23 12:23 | PT.OTN ---
Current Diagnoses Cervicalgia (05/23/21) Muscle weakness (generalized) (05/23/21) Physical Therapy Treatment Note PT-OP-A Visit Information Start: 05/13/21 17:17 Freq: Status: Active Protocol: Document 05/23/21 11:21 LRN (Rec: 05/23/21 12:22 LRN [id number]) Out-Patient Physical Therapy Visit Information Visit Information Visit Type Treatment Note Visit Start Time 11:21 Visit Stop Time 12:02 Total Visit Minutes 41 Visit Number 4 Evaluation Information Evaluation Date 05/14/21 Precautions Precautions arthritis, neuropathy of feet (pain, tingling, numbness), HBP & A. Fib controlled by medications (warfarin, lisinopril), hearing problems, neck pain for 15 yrs. PT-OP-B Current Condition Start: 05/13/21 17:17 Freq: Status: Active Protocol: Document 05/14/21 15:07 LRN (Rec: 05/14/21 16:30 LRN [id number]) Current Condition History of Current Condition Onset Date 4 months ago. Current Complaints L sided neck pain with bilateral neck tightness. History of Current Condition Neck problems for 15 yrs. Was given ex's by chiropractor, but has been having trouble looking behind to back up to left. 4 months ago has been having sharp pain on L side of neck while turning the head either direction. Went to chiropractor but he suggested an X-ray and it showed normal bone structure, so was referred to physical therapy. Meantime started doing massage 1x/week and accupuncture that seems to have relieved the pain down the neck and back and sometimes is able to turn the head without the pain, but sometimes has pain. 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 Retired agricultural banking. Developmental History Developmental History Lives on [facility]. Treatment Goals Patient/Caregiver Goals Pt goal is to be able to rotate head at least 35 deg's to improve driving and biking ability. Pt goal is to be able to wake in morning without L sided neck pain. Prior Functional Status Baseline Function- ADL's Independent Baseline Function- Mobility Independent Current Functional Impairments (Reported) Functional Limitations- ADL's Difficulty rotating head for driving or biking. Wakes in morning with stiff neck (side sleeper) Functional Limitations- Recreation/ Riding street bike difficulty Hobbies Functional Limitations- Other Difficulty driving Personal Factors Other Personal Factors That May Effect 15 yr chronic neck pain Therapy/Recovery history, controlled A.Fib/HBP. Having at same time having massage (1x/week) and accupuncture (2 more appts) treatments. PT-OP-C Subjective Start: 05/13/21 17:17 Freq: Status: Active Protocol: Document 05/23/21 11:21 LRN (Rec: 05/23/21 12:22 LRN [id number]) OP-PT Subjective Patient Comments Patient Comments Stopping accupuncture because doesn't seem to help. Holding off on massage. PT-OP-H Neuro Start: 05/13/21 17:17 Freq: Status: Active Protocol: Document 05/14/21 15:07 LRN (Rec: 05/14/21 16:30 LRN [id number]) Sensation Evaluation Gross Sensation Gross Sensation WNL PT-OP-J Posture/Palpation/Skin Start: 05/13/21 17:17 Freq: Status: Active Protocol: Document 05/14/21 15:07 LRN (Rec: 05/14/21 16:30 LRN [id number]) Posture Evaluation Position Sitting Head/C-Spine Posture Forward Head Shoulder Posture (L) Elevated Pelvis Posture Anteriorly Tilted Knee Posture (L) Excess Flexion,(R) Excess Flexion Palpation Assessment Location Neck Palpation Location Subocciptal reg, C3, C4, C5 L TP & C6 cheryl TP tenderness Palpation Findings Tenderness Palpation Details Decreased joint mobility, limited by pain at C1 though C7. Decreased First rib mobility. PT-OP-K Range of Motion Start: 05/13/21 17:17 Freq: Status: Active Protocol: Document 05/20/21 15:15 LRN (Rec: 05/20/21 16:12 LRN [id number]) Cervical Spine Range of Motion Cervical Spine Active Degrees Testing Position Supine Rotation Left 25 Rotation Right 25 PT-OP-L Special Tests Start: 05/13/21 17:17 Freq: Status: Active Protocol: Document 05/14/21 15:07 LRN (Rec: 05/14/21 16:30 LRN [id number]) Special Tests Cervical Spine Special Tests Traction Test Results + Comments Decrease in neck pain. Vertebral Artery Test Results Negative bilaterally PT-OP-M Strength Start: 05/13/21 17:17 Freq: Status: Active Protocol: Document 05/14/21 15:07 LRN (Rec: 05/14/21 16:30 LRN [id number]) Cervical Spine Strength Cervical Spine Manual Muscle Testing Testing Position Sitting Flexion (C1-2) 5 Normal Extension 5 Normal Rotation Left 3+ Fair+ Rotation Right 4 Good Lateral Flexion Left (C3) 5 Normal Lateral Flexion Right (C3) 5 Normal Shoulder Strength Shoulder Manual Muscle Testing Right Comments Generally 5/5 Left Comments Generally 5/5 PT-OP-Q Treatments Start: 05/13/21 17:17 Freq: Status: Active Protocol: Document 05/23/21 11:21 LRN (Rec: 05/23/21 12:22 LRN [id number]) Therapeutic Exercises Sitting Exercises C rot Sitting Exercise Name AROM Side bilateral Reps/Minutes 2' Comments Warm up at start of therapy stopped due to pain, then end of tx well lizy Manual Therapy Treatment Soft Tissue Mobilization Anterior Scalenes Body Location L anterior scalenes Mobilization Type Sustained Pressure Intensity/Depth Superficial Body Position Supine Comments Pt on Cervical Rotators Body Location Cervical Rotators Mobilization Type Other Body Position Supine Comments Pt on Contract/relax (using eyes, then head) stretch into L/R/ Bilateral cervical rotation. Cervical Paraspinals Body Location Left C/S Paraspinals. Mobilization Type Strumming Intensity/Depth Moderate Body Position Supine Comments Pt on nECK Body Location Neck subocciptal release Mobilization Type Sustained Pressure Intensity/Depth Superficial Body Position Supine Comments Pt on Manual Traction Cervical Details Intermittent Axial for O-A & C1/C2 traction Body Position Supine Reps/Duration 3' Comments Pt on Manual Techniques MWM C. Rot Type L C. Rot with SP held, upper TP rot left Body Location C1-C2 Body Position Sitting Reps/Duration 3' PT-OP-R Modalities Start: 05/13/21 17:17 Freq: Status: Active Protocol: Document 05/23/21 11:21 LRN (Rec: 05/23/21 12:22 LRN [id number]) Hot Pack/Cold Pack Treatment Hot Pack Location Neck during manual therapy Patient Position Supine Ice Massage Location L Suboccipital Patient Position Sitting Treatment Duration (minutes) 2 Patient Tolerance Good Comments Improved comfort with head rotation left. PT-OP-T Assessment and Plan Start: 05/13/21 17:17 Freq: Status: Active Protocol: Document 05/23/21 11:21 LRN (Rec: 05/23/21 12:22 LRN [id number]) Physical Therapy Assessment Goals Three Impairment L sided Neck pain with rotation and waking first in the morning (12/26) Short Term Goal (STG) Decrease pain with cervical rotation to 1/10 STG Duration 06/15/21 Group Home Goal (LTG) Pt will be able to wake in morning without L sided neck pain. (05/20 & 05/23/21: Woke for 2nd time this morning without neck pain). LTG Duration 07/13/21 (05/20/21: met for 1 day this morning) Two Impairment Decreased Neck rotation AROM limiting driving & biking Impairment AROM (sitting): rotation: 35 deg's right, 3 deg's left SB: 3 deg's left, 5 deg's right Flex: 5 deg's, Ext: 25 deg's Short Term Goal (STG) Improve cervical AROM 5-10 deg 's. (05/20/21: Active C rot in sup is 25 deg's bilaterally) STG Duration 06/15/21 (05/20/21: Progressed) Group Home Goal (LTG) Pt goal is to be able to rotate head at least 35 deg's bilaterally to improve safety with driving and biking. LTG Duration 07/13/21 One Impairment Lacks appropriate self care program. Short Term Goal (STG) Pt will be independent in a self care neck mobility ex program. (05/17/21: Issued HEP for C rot & ext/retraction, held flex/ext & SB due to pain) STG Duration (05/17/21: Progressing) Group Home Goal (LTG) Pt will be independent in a self care HEP of ROM, strengthening and postural ex' s. LTG Duration 07/13/21 (05/17/21: Progressed ROM ex) Progress Towards Goals Progress Comments Pt noting no pain in neck on waking this morning, and could rotate his head. Assessment Summary Assessment Pt tolerace to active L C. Rot appears improved when in supine. He has less pain with head in neutral vs marlyn extension (chin tucked). Use of MH with treatment and ice massage at end appeared helpful in decreasing pain. Pt may be hindering his progress by pushing too much into pain with ex's. Pt sleeping better and woke without pain this morning. Physical Therapy Plan Frequency and Duration Frequency of Treatment 2x/Week Plan of Care Start Date 05/14/21 Plan of Care End Date 07/13/21 Next Visit Focus/Plan Next Note Type Treatment Note Next Visit Plan Measure C. rot at start/end of therapy. Pt education in proper sleep positioning. Add to HEP: Active C flex/ext ( if appropriate) and Stretches: scalenes, [place]. Cont Manual STM & traction, STM of [place], Lev Scap, Scalenes, SCM. Strengthening of scapular depressor. MWM for rotation, HEP.
--- NOTE | 2021-05-27 16:12 | PT.OTN ---
Current Diagnoses Cervicalgia (05/27/21) Muscle weakness (generalized) (05/27/21) Physical Therapy Treatment Note PT-OP-A Visit Information Start: 05/13/21 17:17 Freq: Status: Active Protocol: Document 05/27/21 15:03 LRN (Rec: 05/27/21 16:12 LRN [id number]) Out-Patient Physical Therapy Visit Information Visit Information Visit Type Treatment Note Visit Start Time 15:03 Visit Stop Time 15:55 Total Visit Minutes 52 Visit Number 5 Evaluation Information Evaluation Date 05/14/21 Precautions Precautions arthritis, neuropathy of feet (pain, tingling, numbness), HBP & A. Fib controlled by medications (warfarin, lisinopril), hearing problems, neck pain for 15 yrs. PT-OP-B Current Condition Start: 05/13/21 17:17 Freq: Status: Active Protocol: Document 05/14/21 15:07 LRN (Rec: 05/14/21 16:30 LRN [id number]) Current Condition History of Current Condition Onset Date 4 months ago. Current Complaints L sided neck pain with bilateral neck tightness. History of Current Condition Neck problems for 15 yrs. Was given ex's by chiropractor, but has been having trouble looking behind to back up to left. 4 months ago has been having sharp pain on L side of neck while turning the head either direction. Went to chiropractor but he suggested an X-ray and it showed normal bone structure, so was referred to physical therapy. Meantime started doing massage 1x/week and accupuncture that seems to have relieved the pain down the neck and back and sometimes is able to turn the head without the pain, but sometimes has pain. 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 Retired agricultural banking. Developmental History Developmental History Lives on [facility]. Treatment Goals Patient/Caregiver Goals Pt goal is to be able to rotate head at least 35 deg's to improve driving and biking ability. Pt goal is to be able to wake in morning without L sided neck pain. Prior Functional Status Baseline Function- ADL's Independent Baseline Function- Mobility Independent Current Functional Impairments (Reported) Functional Limitations- ADL's Difficulty rotating head for driving or biking. Wakes in morning with stiff neck (side sleeper) Functional Limitations- Recreation/ Riding street bike difficulty Hobbies Functional Limitations- Other Difficulty driving Personal Factors Other Personal Factors That May Effect 15 yr chronic neck pain Therapy/Recovery history, controlled A.Fib/HBP. Having at same time having massage (1x/week) and accupuncture (2 more appts) treatments. PT-OP-C Subjective Start: 05/13/21 17:17 Freq: Status: Active Protocol: Document 05/27/21 15:03 LRN (Rec: 05/27/21 16:12 LRN [id number]) OP-PT Subjective Patient Comments Patient Comments For 2 days after the last session the neck felt good. Did ex's in bed and felt he had a lot of ROM. Was walking around on the next day and the neck was really sore. Sleep good at night, 3-4 hours at a time (one night 6.5 hrs, most ever slept). PT-OP-H Neuro Start: 05/13/21 17:17 Freq: Status: Active Protocol: Document 05/14/21 15:07 LRN (Rec: 05/14/21 16:30 LRN [id number]) Sensation Evaluation Gross Sensation Gross Sensation WNL PT-OP-J Posture/Palpation/Skin Start: 05/13/21 17:17 Freq: Status: Active Protocol: Document 05/14/21 15:07 LRN (Rec: 05/14/21 16:30 LRN [id number]) Posture Evaluation Position Sitting Head/C-Spine Posture Forward Head Shoulder Posture (L) Elevated Pelvis Posture Anteriorly Tilted Knee Posture (L) Excess Flexion,(R) Excess Flexion Palpation Assessment Location Neck Palpation Location Subocciptal reg, C3, C4, C5 L TP & C6 cheryl TP tenderness Palpation Findings Tenderness Palpation Details Decreased joint mobility, limited by pain at C1 though C7. Decreased First rib mobility. PT-OP-K Range of Motion Start: 05/13/21 17:17 Freq: Status: Active Protocol: Document 05/27/21 15:03 LRN (Rec: 05/27/21 16:12 LRN [id number]) Cervical Spine Range of Motion Cervical Spine Active Degrees Testing Position Sitting Flexion 33 Extension 20 Rotation Left 24 Rotation Right 30 Comments Ext: Pain on return POST THERAPY: Flex: 30 deg's Ext: 20 deg's Rot L: 30 deg's; R: 30 deg's PT-OP-L Special Tests Start: 05/13/21 17:17 Freq: Status: Active Protocol: Document 05/14/21 15:07 LRN (Rec: 05/14/21 16:30 LRN [id number]) Special Tests Cervical Spine Special Tests Traction Test Results + Comments Decrease in neck pain. Vertebral Artery Test Results Negative bilaterally PT-OP-M Strength Start: 05/13/21 17:17 Freq: Status: Active Protocol: Document 05/14/21 15:07 LRN (Rec: 05/14/21 16:30 LRN [id number]) Cervical Spine Strength Cervical Spine Manual Muscle Testing Testing Position Sitting Flexion (C1-2) 5 Normal Extension 5 Normal Rotation Left 3+ Fair+ Rotation Right 4 Good Lateral Flexion Left (C3) 5 Normal Lateral Flexion Right (C3) 5 Normal Shoulder Strength Shoulder Manual Muscle Testing Right Comments Generally 5/5 Left Comments Generally 5/5 PT-OP-Q Treatments Start: 05/13/21 17:17 Freq: Status: Active Protocol: Document 05/27/21 15:03 LRN (Rec: 05/27/21 16:12 LRN [id number]) Therapeutic Exercises Sitting Exercises C rot Sitting Exercise Name AROM painfree range Side bilateral Reps/Minutes 2' Comments ROM msmt taken x 2 C Flex Sitting Exercise Name AROM painfree range Reps/Minutes 2' Comments ROM msmt taken x 2 C. Ext Sitting Exercise Name AROM painfree range Reps/Minutes 4' Comments Active ROM after manual therapy & ice massage; AROM msmt taken x 2 Manual Therapy Treatment Soft Tissue Mobilization Anterior Scalenes Body Location L>R anterior scalenes Mobilization Type Sustained Pressure Intensity/Depth Superficial Body Position Supine Comments Pt on Cervical Rotators Body Location Cervical Rotators Mobilization Type Myofascial Release,Other Body Position Supine Comments Pt on Contract/relax (using eyes, then head) stretch into L/R/ Bilateral cervical rotation. Deep Breathing w/head in L rotation. Cervical Paraspinals Body Location Left C/S Paraspinals. Mobilization Type Strumming Intensity/Depth Moderate Body Position Supine Comments Pt on nECK Body Location Neck subocciptal release Mobilization Type Sustained Pressure Intensity/Depth Superficial Body Position Supine Comments Pt on Joint Mobilizations C3-C4, C4-C5 Joint C3 through C5 Direction Sideglide Grade II Body Position Supine Reps/Duration 3' Manual Traction Cervical Details Intermittent Axial for O-A & C1/C2 traction Body Position Supine Reps/Duration 3' Comments Pt on Self-Care/Home Management Treatment Education Other Education Discussed possible causes of onset of neck pain after driving to [place] and attending the [employer]. Reviewed appropriate neck positioning for nighttime sleep. PT-OP-R Modalities Start: 05/13/21 17:17 Freq: Status: Active Protocol: Document 05/23/21 11:21 LRN (Rec: 05/23/21 12:22 LRN [id number]) Hot Pack/Cold Pack Treatment Hot Pack Location Neck during manual therapy Patient Position Supine Ice Massage Location L Suboccipital Patient Position Sitting Treatment Duration (minutes) 2 Patient Tolerance Good Comments Improved comfort with head rotation left. PT-OP-T Assessment and Plan Start: 05/13/21 17:17 Freq: Status: Active Protocol: Document 05/27/21 15:03 LRN (Rec: 05/27/21 16:12 LRN [id number]) Physical Therapy Assessment Goals Three Impairment L sided Neck pain with rotation and waking first in the morning (12/26) Short Term Goal (STG) Decrease pain with cervical rotation to 1/10 (05/27/21: Pt able to limit C. active Rot to avoid pain most of the time). STG Duration 06/15/21 (05/27/21: Progressing Retirement Goal (LTG) Pt will be able to wake in morning without L sided neck pain. (05/20 - 05/27/21: Woke 3x in AM without neck pain). LTG Duration 07/13/21 (05/27/21: met for 3 mornings) Two Impairment Decreased Neck rotation AROM limiting driving & biking Impairment AROM (sitting): rotation: 35 deg's right, 3 deg's left SB: 3 deg's left, 5 deg's right Flex: 5 deg's, Ext: 25 deg's Short Term Goal (STG) Improve cervical AROM 5-10 deg 's. (05/27/21: Active C rot in sit is 30 deg's bilaterally) STG Duration 06/15/21 (05/27/21: Progressed) Manager Of Compliance Goal (LTG) Pt goal is to be able to rotate head at least 35 deg's bilaterally to improve safety with driving and biking. LTG Duration 07/13/21 (05/27/21: 85% progress towards goal) One Impairment Lacks appropriate self care program. Short Term Goal (STG) Pt will be independent in a self care neck mobility ex program. (05/17/21: Issued HEP for C rot & ext/retraction, held flex/ext & SB due to pain) STG Duration (05/17/21: Progressing) Manager Of Compliance Goal (LTG) Pt will be independent in a self care HEP of ROM, strengthening and postural ex' s. LTG Duration 07/13/21 (05/17/21: Progressed ROM ex) Assessment Summary Assessment Pt new bike helped to prevent onset of neck pain riding to clinic. Pt nighttime sleeping pain onset lessened with no pain on waking in last 3 days and ability to sleep a 4 hr stretch. Improved cervical L rotation after therapy, acive flex/ext is ~ same. Physical Therapy Plan Frequency and Duration Frequency of Treatment 2x/Week Plan of Care Start Date 05/14/21 Plan of Care End Date 07/13/21 Next Visit Focus/Plan Next Note Type Treatment Note Next Visit Plan Measure C. rot at start/end of therapy. Add to HEP: Active C flex/ext w/chin tuck and Stretches: scalenes, UT. Cont Manual STM & traction, STM of UT, Lev Scap, Scalenes, SCM. Strengthening of scapular depressor. MWM for rotation, HEP.
--- NOTE | 2021-05-29 15:59 | PT.OTN ---
Current Diagnoses Cervicalgia (05/29/21) Muscle weakness (generalized) (05/29/21) Physical Therapy Treatment Note PT-OP-A Visit Information Start: 05/13/21 17:17 Freq: Status: Active Protocol: Document 05/29/21 14:57 MA (Rec: 05/29/21 15:59 MA [id number]) Out-Patient Physical Therapy Visit Information Visit Information Visit Type Treatment Note Visit Start Time 15:00 Visit Stop Time 15:50 Total Visit Minutes 50 Visit Number 6 Number of POWER ORIGINATOR Visits 1 Precautions Precautions arthritis, neuropathy of feet (pain, tingling, numbness), HBP & A. Fib controlled by medications (warfarin, lisinopril), hearing problems, neck pain for 15 yrs. PT-OP-B Current Condition Start: 05/13/21 17:17 Freq: Status: Active Protocol: Document 05/14/21 15:07 LRN (Rec: 05/14/21 16:30 LRN [id number]) Current Condition History of Current Condition Onset Date 4 months ago. Current Complaints L sided neck pain with bilateral neck tightness. History of Current Condition Neck problems for 15 yrs. Was given ex's by chiropractor, but has been having trouble looking behind to back up to left. 4 months ago has been having sharp pain on L side of neck while turning the head either direction. Went to chiropractor but he suggested an X-ray and it showed normal bone structure, so was referred to physical therapy. Meantime started doing massage 1x/week and accupuncture that seems to have relieved the pain down the neck and back and sometimes is able to turn the head without the pain, but sometimes has pain. 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 Retired agricultural banking. Developmental History Developmental History Lives on [facility]. Treatment Goals Patient/Caregiver Goals Pt goal is to be able to rotate head at least 35 deg's to improve driving and biking ability. Pt goal is to be able to wake in morning without L sided neck pain. Prior Functional Status Baseline Function- ADL's Independent Baseline Function- Mobility Independent Current Functional Impairments (Reported) Functional Limitations- ADL's Difficulty rotating head for driving or biking. Wakes in morning with stiff neck (side sleeper) Functional Limitations- Recreation/ Riding street bike difficulty Hobbies Functional Limitations- Other Difficulty driving Personal Factors Other Personal Factors That May Effect 15 yr chronic neck pain Therapy/Recovery history, controlled A.Fib/HBP. Having at same time having massage (1x/week) and accupuncture (2 more appts) treatments. PT-OP-C Subjective Start: 05/13/21 17:17 Freq: Status: Active Protocol: Document 05/27/21 15:03 LRN (Rec: 05/27/21 16:12 LRN [id number]) OP-PT Subjective Patient Comments Patient Comments For 2 days after the last session the neck felt good. Did ex's in bed and felt he had a lot of ROM. Was walking around on the next day and the neck was really sore. Sleep good at night, 3-4 hours at a time (one night 6.5 hrs, most ever slept). PT-OP-H Neuro Start: 05/13/21 17:17 Freq: Status: Active Protocol: Document 05/14/21 15:07 LRN (Rec: 05/14/21 16:30 LRN [id number]) Sensation Evaluation Gross Sensation Gross Sensation WNL PT-OP-J Posture/Palpation/Skin Start: 05/13/21 17:17 Freq: Status: Active Protocol: Document 05/14/21 15:07 LRN (Rec: 05/14/21 16:30 LRN [id number]) Posture Evaluation Position Sitting Head/C-Spine Posture Forward Head Shoulder Posture (L) Elevated Pelvis Posture Anteriorly Tilted Knee Posture (L) Excess Flexion,(R) Excess Flexion Palpation Assessment Location Neck Palpation Location Subocciptal reg, C3, C4, C5 L TP & C6 cheryl TP tenderness Palpation Findings Tenderness Palpation Details Decreased joint mobility, limited by pain at C1 though C7. Decreased First rib mobility. PT-OP-K Range of Motion Start: 05/13/21 17:17 Freq: Status: Active Protocol: Document 05/27/21 15:03 LRN (Rec: 05/27/21 16:12 LRN [id number]) Cervical Spine Range of Motion Cervical Spine Active Degrees Testing Position Sitting Flexion 33 Extension 20 Rotation Left 24 Rotation Right 30 Comments Ext: Pain on return POST THERAPY: Flex: 30 deg's Ext: 20 deg's Rot L: 30 deg's; R: 30 deg's PT-OP-L Special Tests Start: 07/26/21 17:17 Freq: Status: Active Protocol: Document 05/14/21 15:07 LRN (Rec: 05/14/21 16:30 LRN [id number]) Special Tests Cervical Spine Special Tests Traction Test Results + Comments Decrease in neck pain. Vertebral Artery Test Results Negative bilaterally PT-OP-M Strength Start: 05/13/21 17:17 Freq: Status: Active Protocol: Document 05/14/21 15:07 LRN (Rec: 05/14/21 16:30 LRN [id number]) Cervical Spine Strength Cervical Spine Manual Muscle Testing Testing Position Sitting Flexion (C1-2) 5 Normal Extension 5 Normal Rotation Left 3+ Fair+ Rotation Right 4 Good Lateral Flexion Left (C3) 5 Normal Lateral Flexion Right (C3) 5 Normal Shoulder Strength Shoulder Manual Muscle Testing Right Comments Generally 5/5 Left Comments Generally 5/5 PT-OP-Q Treatments Start: 05/13/21 17:17 Freq: Status: Active Protocol: Document 05/29/21 14:57 MA (Rec: 05/29/21 15:59 MA [id number]) Therapeutic Exercises Sitting Exercises C rot Sitting Exercise Name AROM painfree range Side bilateral Reps/Minutes 2' Comments ROM msmt taken x 2 C Flex Sitting Exercise Name AROM painfree range Reps/Minutes 2' Comments ROM msmt taken x 2 C. Ext Sitting Exercise Name AROM painfree range Reps/Minutes 4' Comments Active ROM after manual therapy & ice massage; AROM msmt taken x 2 Self-Care/Home Management Treatment Education Patient Education Body Mechanics,Posture Other Education Discussed pt's posture in sitting working on pt retracting scap and tucking chin with pt showing good understanding. Encouraged pt to aovid thoracic extension when extending cervical spine. Added chin tucks to HEP PT-OP-R Modalities Start: 05/13/21 17:17 Freq: Status: Active Protocol: Document 05/29/21 14:57 MA (Rec: 05/29/21 15:59 MA [id number]) Hot Pack/Cold Pack Treatment Hot Pack Location Neck during manual therapy Patient Position Supine Cold Pack Location Neck Patient Position Supine Treatment Duration (minutes) 10 PT-OP-T Assessment and Plan Start: 05/13/21 17:17 Freq: Status: Active Protocol: Document 05/29/21 14:57 MA (Rec: 05/29/21 15:59 MA [id number]) Physical Therapy Assessment Goals Three Impairment L sided Neck pain with rotation and waking first in the morning (12/26) Short Term Goal (STG) Decrease pain with cervical rotation to 10/28 (05/27/21: Pt able to limit C. active Rot to avoid pain most of the time). STG Duration 06/15/21 (05/27/21: Progressing Blending Kettle Tender Goal (LTG) Pt will be able to wake in morning without L sided neck pain. (05/20 - 05/27/21: Woke 3x in AM without neck pain). LTG Duration 07/13/21 (05/27/21: met for 3 mornings) Two Impairment Decreased Neck rotation AROM limiting driving & biking Impairment AROM (sitting): rotation: 35 deg's right, 3 deg's left SB: 3 deg's left, 5 deg's right Flex: 5 deg's, Ext: 25 deg's Short Term Goal (STG) Improve cervical AROM 5-10 deg 's. (05/27/21: Active C rot in sit is 30 deg's bilaterally) STG Duration 06/15/21 (05/27/21: Progressed) Blending Kettle Tender Goal (LTG) Pt goal is to be able to rotate head at least 35 deg's bilaterally to improve safety with driving and biking. LTG Duration 07/13/21 (05/27/21: 85% progress towards goal) One Impairment Lacks appropriate self care program. Short Term Goal (STG) Pt will be independent in a self care neck mobility ex program. (05/17/21: Issued HEP for C rot & ext/retraction, held flex/ext & SB due to pain) STG Duration (05/17/21: Progressing) Blending Kettle Tender Goal (LTG) Pt will be independent in a self care HEP of ROM, strengthening and postural ex' s. LTG Duration 07/13/21 (05/17/21: Progressed ROM ex) Assessment Summary Assessment Pt arrives with CS pain that decreases after STM but increases when attempting UT and levator stretches in sitting- Levator stretch only painful upon release on L, UT stretchcracking and pain on L side. Discussed pt's posture in sitting having pt work on retracting shoudlers and tucking chin. Added chin tuck exercise to HEP to strengthen extensors and improve posture. When pt is asked to extend CS and look up, pt tends to extend thoracic spine vs cervical. Worked on pt moving only cervical spine and encouraged pt to work on CS extension at home thinking about keeping the rest of his back straight to avoid throacic extension. Pt shows good comprehension and is able to demonstrate proper form during session. Physical Therapy Plan Frequency and Duration Frequency of Treatment 2x/Week Plan of Care Start Date 05/14/21 Plan of Care End Date 07/13/21 Therapeutic Interventions Therapeutic Interventions Home Exercise Program,Joint Mobilizations,Manual Therapy, Neuromuscular Re-education, Patient/Caregiver Education, Self-Care/Home Management,Soft Tissue Mobilization, Therapeutic Activities, Therapeutic Exercises Modalities Cold Pack/Ice Massage,Electric Stimulation,Hot Packs, Ultrasound Other Therapeutic Interventions Manual traction Next Visit Focus/Plan Next Note Type Treatment Note Next Visit Plan Measure C. rot at start/end of therapy. Add to HEP: Active C flex/ext w/chin tuck and Stretches: scalenes, UT. Cont Manual STM & traction, STM of UT, Lev Scap, Scalenes, SCM. Strengthening of scapular depressor. MWM for rotation, HEP.
--- NOTE | 2021-06-03 18:04 | PT.OTN ---
Current Diagnoses Cervicalgia (06/03/21) Muscle weakness (generalized) (06/03/21) Physical Therapy Treatment Note PT-OP-A Visit Information Start: 05/13/21 17:17 Freq: Status: Active Protocol: Document 06/03/21 16:09 MA (Rec: 06/03/21 16:51 MA [id number]) Out-Patient Physical Therapy Visit Information Visit Information Visit Type Treatment Note Visit Start Time 16:00 Visit Stop Time 16:50 Total Visit Minutes 50 Visit Number 7 Number of MAIL CLERK BILLS Visits 2 Precautions Precautions arthritis, neuropathy of feet (pain, tingling, numbness), HBP & A. Fib controlled by medications (warfarin, lisinopril), hearing problems, neck pain for 15 yrs. PT-OP-B Current Condition Start: 05/13/21 17:17 Freq: Status: Active Protocol: Document 05/14/21 15:07 LRN (Rec: 05/14/21 16:30 LRN [id number]) Current Condition History of Current Condition Onset Date 4 months ago. Current Complaints L sided neck pain with bilateral neck tightness. History of Current Condition Neck problems for 15 yrs. Was given ex's by chiropractor, but has been having trouble looking behind to back up to left. 4 months ago has been having sharp pain on L side of neck while turning the head either direction. Went to chiropractor but he suggested an X-ray and it showed normal bone structure, so was referred to physical therapy. Meantime started doing massage 1x/week and accupuncture that seems to have relieved the pain down the neck and back and sometimes is able to turn the head without the pain, but sometimes has pain. 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 Retired agricultural banking. Developmental History Developmental History Lives on [facility]. Treatment Goals Patient/Caregiver Goals Pt goal is to be able to rotate head at least 35 deg's to improve driving and biking ability. Pt goal is to be able to wake in morning without L sided neck pain. Prior Functional Status Baseline Function- ADL's Independent Baseline Function- Mobility Independent Current Functional Impairments (Reported) Functional Limitations- ADL's Difficulty rotating head for driving or biking. Wakes in morning with stiff neck (side sleeper) Functional Limitations- Recreation/ Riding street bike difficulty Hobbies Functional Limitations- Other Difficulty driving Personal Factors Other Personal Factors That May Effect 15 yr chronic neck pain Therapy/Recovery history, controlled A.Fib/HBP. Having at same time having massage (1x/week) and accupuncture (2 more appts) treatments. PT-OP-C Subjective Start: 05/13/21 17:17 Freq: Status: Active Protocol: Document 06/03/21 16:09 MA (Rec: 06/03/21 16:51 MA [id number]) OP-PT Subjective Patient Comments Patient Comments Pt feels his pain has improved . PT-OP-H Neuro Start: 05/13/21 17:17 Freq: Status: Active Protocol: Document 05/14/21 15:07 LRN (Rec: 05/14/21 16:30 LRN [id number]) Sensation Evaluation Gross Sensation Gross Sensation WNL PT-OP-J Posture/Palpation/Skin Start: 05/13/21 17:17 Freq: Status: Active Protocol: Document 05/14/21 15:07 LRN (Rec: 05/14/21 16:30 LRN [id number]) Posture Evaluation Position Sitting Head/C-Spine Posture Forward Head Shoulder Posture (L) Elevated Pelvis Posture Anteriorly Tilted Knee Posture (L) Excess Flexion,(R) Excess Flexion Palpation Assessment Location Neck Palpation Location Subocciptal reg, C3, C4, C5 L TP & C6 cheryl TP tenderness Palpation Findings Tenderness Palpation Details Decreased joint mobility, limited by pain at C1 though C7. Decreased First rib mobility. PT-OP-K Range of Motion Start: 05/13/21 17:17 Freq: Status: Active Protocol: Document 05/27/21 15:03 LRN (Rec: 05/27/21 16:12 LRN [id number]) Cervical Spine Range of Motion Cervical Spine Active Degrees Testing Position Sitting Flexion 33 Extension 20 Rotation Left 24 Rotation Right 30 Comments Ext: Pain on return POST THERAPY: Flex: 30 deg's Ext: 20 deg's Rot L: 30 deg's; R: 30 deg's PT-OP-L Special Tests Start: 05/13/21 17:17 Freq: Status: Active Protocol: Document 05/14/21 15:07 LRN (Rec: 05/14/21 16:30 LRN [id number]) Special Tests Cervical Spine Special Tests Traction Test Results + Comments Decrease in neck pain. Vertebral Artery Test Results Negative bilaterally PT-OP-M Strength Start: 05/13/21 17:17 Freq: Status: Active Protocol: Document 05/14/21 15:07 LRN (Rec: 05/14/21 16:30 LRN [id number]) Cervical Spine Strength Cervical Spine Manual Muscle Testing Testing Position Sitting Flexion (C1-2) 5 Normal Extension 5 Normal Rotation Left 3+ Fair+ Rotation Right 4 Good Lateral Flexion Left (C3) 5 Normal Lateral Flexion Right (C3) 5 Normal Shoulder Strength Shoulder Manual Muscle Testing Right Comments Generally 5/5 Left Comments Generally 5/5 PT-OP-Q Treatments Start: 05/13/21 17:17 Freq: Status: Active Protocol: Document 06/03/21 16:09 MA (Rec: 06/03/21 16:51 MA [id number]) Therapeutic Exercises Sitting Exercises Chin Tuck Reps/Minutes 8x5 SH C rot Sitting Exercise Name AROM painfree range, & using towel today to assist holding AROM Side bilateral Reps/Minutes 2' Comments ROM msmt taken x 2 C Flex Sitting Exercise Name AROM painfree range Reps/Minutes 2' Comments ROM msmt taken x 2 C. Ext Sitting Exercise Name AROM painfree range Reps/Minutes 4' Comments Active ROM after manual therapy & ice massage; AROM msmt taken x 2 Other Exercises Weights Other Exercise Name bicep curl, bent over rows, triceps overhead Equipment Used 10# Reps/Minutes x8 ea Comments reviewing for home Manual Therapy Treatment Soft Tissue Mobilization Anterior Scalenes Body Location L>R anterior scalenes Mobilization Type Sustained Pressure Intensity/Depth Superficial Body Position Supine Comments Pt on Cervical Rotators Body Location Cervical Rotators Mobilization Type Myofascial Release,Other Body Position Supine Comments Pt on Contract/relax (using eyes, then head) stretch into L/R/ Bilateral cervical rotation. Deep Breathing w/head in L rotation. Cervical Paraspinals Body Location Left C/S Paraspinals. Mobilization Type Strumming Intensity/Depth Moderate Body Position Supine Comments Pt on Manual Traction Cervical Details Intermittent Axial for O-A & C1/C2 traction Body Position Supine Reps/Duration 3' Comments Pt on PT-OP-R Modalities Start: 05/13/21 17:17 Freq: Status: Active Protocol: Document 06/03/21 16:09 MA (Rec: 06/03/21 16:51 MA [id number]) Hot Pack/Cold Pack Treatment Hot Pack Location Neck during manual therapy Patient Position Supine PT-OP-T Assessment and Plan Start: 05/13/21 17:17 Freq: Status: Active Protocol: Document 06/03/21 16:09 MA (Rec: 06/03/21 16:51 MA [id number]) Physical Therapy Assessment Goals Three Impairment L sided Neck pain with rotation and waking first in the morning (12/26) Short Term Goal (STG) Decrease pain with cervical rotation to / (05/27/21: Pt able to limit C. active Rot to avoid pain most of the time). STG Duration 06/15/21 (05/27/21: Progressing Shelter Goal (LTG) Pt will be able to wake in morning without L sided neck pain. (05/20 - 05/27/21: Woke 3x in AM without neck pain). LTG Duration 07/13/21 (05/27/21: met for 3 mornings) Two Impairment Decreased Neck rotation AROM limiting driving & biking Impairment AROM (sitting): rotation: 35 deg's right, 3 deg's left SB: 3 deg's left, 5 deg's right Flex: 5 deg's, Ext: 25 deg's Short Term Goal (STG) Improve cervical AROM 5-10 deg 's. (05/27/21: Active C rot in sit is 30 deg's bilaterally) STG Duration 06/15/21 (05/27/21: Progressed) Assistant Chief Train Dispatcher Goal (LTG) Pt goal is to be able to rotate head at least 35 deg's bilaterally to improve safety with driving and biking. LTG Duration 07/13/21 (05/27/21: 85% progress towards goal) One Impairment Lacks appropriate self care program. Short Term Goal (STG) Pt will be independent in a self care neck mobility ex program. (05/17/21: Issued HEP for C rot & ext/retraction, held flex/ext & SB due to pain) STG Duration (05/17/21: Progressing) Shelter Goal (LTG) Pt will be independent in a self care HEP of ROM, strengthening and postural ex' s. LTG Duration 07/13/21 (05/17/21: Progressed ROM ex) Assessment Summary Assessment Pts CS rotation L increased from 28 to 36 at end of session after manual work and ther ex. R increased from 32 to 36 at end of session. Reviewed new HEP chin tuck exercise with pt requiring moderate cues for proper form or he tends to flex CS. Pt asked to review weight lifting techniques today. He requires verbal and manual cues for scap retraction during bent over rows and to keep CS neutral but performs overhead tricep extension and bicep curls with good form. Encouraged pt to do no more than 10# vs his usual 25# for all exercises tomorrow and report on Thursday session how CS feels. Ended session with hot pack to CS. Physical Therapy Plan Frequency and Duration Frequency of Treatment 2x/Week Plan of Care Start Date 05/14/21 Plan of Care End Date 07/13/21 Therapeutic Interventions Therapeutic Interventions Home Exercise Program,Joint Mobilizations,Manual Therapy, Neuromuscular Re-education, Patient/Caregiver Education, Self-Care/Home Management,Soft Tissue Mobilization, Therapeutic Activities, Therapeutic Exercises Modalities Cold Pack/Ice Massage,Electric Stimulation,Hot Packs, Ultrasound Other Therapeutic Interventions Manual traction Next Visit Focus/Plan Next Note Type Treatment Note Next Visit Plan Measure C. rot at start/end of therapy. Add to HEP: Active C flex/ext w/chin tuck and Stretches: scalenes, UT. Cont Manual STM & traction, STM of UT, Lev Scap, Scalenes, SCM. Strengthening of scapular depressor. MWM for rotation, HEP.
--- NOTE | 2021-06-11 16:15 | PT.OTN ---
Current Diagnoses Cervicalgia (06/11/21) Muscle weakness (generalized) (06/11/21) Physical Therapy Treatment Note PT-OP-A Visit Information Start: 05/13/21 17:17 Freq: Status: Active Protocol: Document 06/11/21 15:09 LRN (Rec: 06/11/21 16:14 LRN [id number]) Out-Patient Physical Therapy Visit Information Visit Information Visit Type Treatment Note Visit Start Time 15:09 Visit Stop Time 15:49 Total Visit Minutes 40 Visit Number 8 Evaluation Information Evaluation Date 05/14/21 Precautions Precautions arthritis, neuropathy of feet (pain, tingling, numbness), HBP & A. Fib controlled by medications (warfarin, lisinopril), hearing problems, neck pain for 15 yrs. PT-OP-B Current Condition Start: 05/13/21 17:17 Freq: Status: Active Protocol: Document 05/14/21 15:07 LRN (Rec: 05/14/21 16:30 LRN [id number]) Current Condition History of Current Condition Onset Date 4 months ago. Current Complaints L sided neck pain with bilateral neck tightness. History of Current Condition Neck problems for 15 yrs. Was given ex's by chiropractor, but has been having trouble looking behind to back up to left. 4 months ago has been having sharp pain on L side of neck while turning the head either direction. Went to chiropractor but he suggested an X-ray and it showed normal bone structure, so was referred to physical therapy. Meantime started doing massage 1x/week and accupuncture that seems to have relieved the pain down the neck and back and sometimes is able to turn the head without the pain, but sometimes has pain. 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 Retired agricultural banking. Developmental History Developmental History Lives on [facility]. Treatment Goals Patient/Caregiver Goals Pt goal is to be able to rotate head at least 35 deg's to improve driving and biking ability. Pt goal is to be able to wake in morning without L sided neck pain. Prior Functional Status Baseline Function- ADL's Independent Baseline Function- Mobility Independent Current Functional Impairments (Reported) Functional Limitations- ADL's Difficulty rotating head for driving or biking. Wakes in morning with stiff neck (side sleeper) Functional Limitations- Recreation/ Riding street bike difficulty Hobbies Functional Limitations- Other Difficulty driving Personal Factors Other Personal Factors That May Effect 15 yr chronic neck pain Therapy/Recovery history, controlled A.Fib/HBP. Having at same time having massage (1x/week) and accupuncture (2 more appts) treatments. PT-OP-C Subjective Start: 05/13/21 17:17 Freq: Status: Active Protocol: Document 06/11/21 15:09 LRN (Rec: 06/11/21 16:14 LRN [id number]) OP-PT Subjective Patient Comments Patient Comments States he was making progress, but last Wed his passed and now he is worse. States he would like to continue therapy. PT-OP-H Neuro Start: 05/13/21 17:17 Freq: Status: Active Protocol: Document 05/14/21 15:07 LRN (Rec: 05/14/21 16:30 LRN [id number]) Sensation Evaluation Gross Sensation Gross Sensation WNL PT-OP-J Posture/Palpation/Skin Start: 05/13/21 17:17 Freq: Status: Active Protocol: Document 05/14/21 15:07 LRN (Rec: 05/14/21 16:30 LRN [id number]) Posture Evaluation Position Sitting Head/C-Spine Posture Forward Head Shoulder Posture (L) Elevated Pelvis Posture Anteriorly Tilted Knee Posture (L) Excess Flexion,(R) Excess Flexion Palpation Assessment Location Neck Palpation Location Subocciptal reg, C3, C4, C5 L TP & C6 cheryl TP tenderness Palpation Findings Tenderness Palpation Details Decreased joint mobility, limited by pain at C1 though C7. Decreased First rib mobility. PT-OP-K Range of Motion Start: 05/13/21 17:17 Freq: Status: Active Protocol: Document 06/11/21 15:09 LRN (Rec: 06/11/21 16:14 LRN [id number]) Cervical Spine Range of Motion Cervical Spine Active Degrees Testing Position Sitting Comments At Start: Rot: 22 deg's right, 10 deg's left. At End: Rot: 38 deg's right, 40 deg's left. PT-OP-L Special Tests Start: 05/13/21 17:17 Freq: Status: Active Protocol: Document 05/14/21 15:07 LRN (Rec: 05/14/21 16:30 LRN [id number]) Special Tests Cervical Spine Special Tests Traction Test Results + Comments Decrease in neck pain. Vertebral Artery Test Results Negative bilaterally PT-OP-M Strength Start: 05/13/21 17:17 Freq: Status: Active Protocol: Document 05/14/21 15:07 LRN (Rec: 05/14/21 16:30 LRN [id number]) Cervical Spine Strength Cervical Spine Manual Muscle Testing Testing Position Sitting Flexion (C1-2) 5 Normal Extension 5 Normal Rotation Left 3+ Fair+ Rotation Right 4 Good Lateral Flexion Left (C3) 5 Normal Lateral Flexion Right (C3) 5 Normal Shoulder Strength Shoulder Manual Muscle Testing Right Comments Generally 5/5 Left Comments Generally 5/5 PT-OP-Q Treatments Start: 05/13/21 17:17 Freq: Status: Active Protocol: Document 06/11/21 15:09 LRN (Rec: 06/11/21 16:14 LRN [id number]) Therapeutic Exercises Sitting Exercises Chin Tuck Reps/Minutes 8x5 SH C rot Sitting Exercise Name AROM painfree range w/o towel Side bilateral Reps/Minutes 8' Comments ROM msmt taken x 2. Pn L subocciput with self rot mob to right. Manual Therapy Treatment Soft Tissue Mobilization Anterior Scalenes Body Location L>R anterior scalenes Mobilization Type Sustained Pressure Intensity/Depth Superficial Body Position Supine Comments Pt on Cervical Rotators Body Location Cervical Rotators Mobilization Type Myofascial Release,Other Body Position Supine Comments Pt on AROM & Deep Breathing w/head rot. Cervical Paraspinals Body Location Left C/S Paraspinals. Mobilization Type Strumming Intensity/Depth Moderate Body Position Supine Comments Pt on Manual Traction Cervical Details Intermittent Axial for O-A & C1/C2 traction Body Position Supine Reps/Duration 3' Comments Pt on Manual Techniques MWM C. Rot Type C. Rot with TP held and AROM rot Body Location C1-C2 Body Position Supine Reps/Duration 8' Comments In sitting: attempted with assist with towel roll, but discontinued due to onset of L subocciptal pain. Self-Care/Home Management Treatment Education Other Education Reviewed pt's self assisted cervical rot with towel roll technique and recommended pt not pull on jaw for ROM. PT-OP-R Modalities Start: 05/13/21 17:17 Freq: Status: Active Protocol: Document 06/11/21 15:09 LRN (Rec: 06/11/21 16:14 LRN [id number]) Hot Pack/Cold Pack Treatment Hot Pack Location Neck during manual therapy Patient Position Supine PT-OP-T Assessment and Plan Start: 05/13/21 17:17 Freq: Status: Active Protocol: Document 06/11/21 15:09 LRN (Rec: 06/11/21 16:14 LRN [id number]) Physical Therapy Assessment Goals Three Impairment L sided Neck pain with rotation and waking first in the morning (12/26) Short Term Goal (STG) Decrease pain with cervical rotation to / (05/27/21: Pt able to limit C. active Rot to avoid pain most of the time). STG Duration 06/15/21 (05/27/21: Progressing Genetics Teacher Goal (LTG) Pt will be able to wake in morning without L sided neck pain. (05/20 - 05/27/21: Woke 3x in AM without neck pain). LTG Duration 07/13/21 (05/27/21: met for 3 mornings) Two Impairment Decreased Neck rotation AROM limiting driving & biking Impairment AROM (sitting): rotation: 35 deg's right, 3 deg's left SB: 3 deg's left, 5 deg's right Flex: 5 deg's, Ext: 25 deg's Short Term Goal (STG) Improve cervical AROM 5-10 deg 's. (06/11/21: Post therapy: Active C rot in sit is 38-40 deg's bilaterally ) STG Duration 06/15/21 (06/11/21: MET GOAL) Genetics Teacher Goal (LTG) Pt goal is to be able to rotate head at least 35 deg's bilaterally to improve safety with driving and biking. (06/10/21: At Start: Rot: 22 deg's right, 10 deg's left. At End: Rot: 38 deg's right , 40 deg's left.) LTG Duration 07/13/21 (05/27/21: 85% progress towards goal) One Impairment Lacks appropriate self care program. Short Term Goal (STG) Pt will be independent in a self care neck mobility ex program. (05/17/21: Issued HEP for C rot & ext/retraction, held flex/ext & SB due to pain) STG Duration (05/17/21: Progressing) Care Home Goal (LTG) Pt will be independent in a self care HEP of ROM, strengthening and postural ex' s. LTG Duration 07/13/21 (05/17/21: Progressed ROM ex) Assessment Summary Assessment C/S Rot increased: At Start: Rot: 22 deg's right, 10 deg' s left. At End: Rot: 38 deg's right, 40 deg's left. Pt is under much stress with the dealth of his spouse; therefore increased muscle tension and stress may be a factor in his decreased mobility and pain in the L suboccipital region with active rotation prior to therapy. After therapy pt was able to actively rotate the head without pain. He did have pain R rot when self MWM using a towel roll was attempted. Physical Therapy Plan Frequency and Duration Frequency of Treatment 2x/Week Plan of Care Start Date 05/14/21 Plan of Care End Date 07/13/21 Next Visit Focus/Plan Next Note Type Treatment Note Next Visit Plan Measure C. rot at start/end of therapy. Add to HEP: Active C flex/ext/SB w/chin tuck and Stretches: scalenes, UT. Manual STM & traction, STM ( [place], Lev Scap, Scalenes, SCM. Strengthening of scapular depressor). MWM for rotation, HEP.
--- NOTE | 2021-06-14 13:06 | PT.OTN ---
Current Diagnoses Cervicalgia (06/14/21) Muscle weakness (generalized) (06/14/21) Physical Therapy Treatment Note PT-OP-A Visit Information Start: 05/13/21 17:17 Freq: Status: Active Protocol: Document 06/14/21 10:36 MA (Rec: 06/14/21 11:21 MA [id number]) Out-Patient Physical Therapy Visit Information Visit Information Visit Type Treatment Note Visit Start Time 10:35 Visit Stop Time 11:25 Total Visit Minutes 50 Visit Number 9 Number of COOK CHIEF Visits 1 PT-OP-B Current Condition Start: 05/13/21 17:17 Freq: Status: Active Protocol: Document 05/14/21 15:07 LRN (Rec: 05/14/21 16:30 LRN [id number]) Current Condition History of Current Condition Onset Date 4 months ago. Current Complaints L sided neck pain with bilateral neck tightness. History of Current Condition Neck problems for 15 yrs. Was given ex's by chiropractor, but has been having trouble looking behind to back up to left. 4 months ago has been having sharp pain on L side of neck while turning the head either direction. Went to chiropractor but he suggested an X-ray and it showed normal bone structure, so was referred to physical therapy. Meantime started doing massage 1x/week and accupuncture that seems to have relieved the pain down the neck and back and sometimes is able to turn the head without the pain, but sometimes has pain. 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 Retired agricultural banking. Developmental History Developmental History Lives on [facility]. Treatment Goals Patient/Caregiver Goals Pt goal is to be able to rotate head at least 35 deg's to improve driving and biking ability. Pt goal is to be able to wake in morning without L sided neck pain. Prior Functional Status Baseline Function- ADL's Independent Baseline Function- Mobility Independent Current Functional Impairments (Reported) Functional Limitations- ADL's Difficulty rotating head for driving or biking. Wakes in morning with stiff neck (side sleeper) Functional Limitations- Recreation/ Riding street bike difficulty Hobbies Functional Limitations- Other Difficulty driving Personal Factors Other Personal Factors That May Effect 15 yr chronic neck pain Therapy/Recovery history, controlled A.Fib/HBP. Having at same time having massage (1x/week) and accupuncture (2 more appts) treatments. PT-OP-C Subjective Start: 05/13/21 17:17 Freq: Status: Active Protocol: Document 06/14/21 10:36 MA (Rec: 06/14/21 11:21 MA [id number]) OP-PT Subjective Patient Comments Patient Comments Pt had neck pain when he went to dinner last night that went away this moning [facility]-H Neuro Start: 05/13/21 17:17 Freq: Status: Active Protocol: Document 05/14/21 15:07 LRN (Rec: 05/14/21 16:30 LRN [id number]) Sensation Evaluation Gross Sensation Gross Sensation WNL PT-OP-J Posture/Palpation/Skin Start: 05/13/21 17:17 Freq: Status: Active Protocol: Document 05/14/21 15:07 LRN (Rec: 05/14/21 16:30 LRN [id number]) Posture Evaluation Position Sitting Head/C-Spine Posture Forward Head Shoulder Posture (L) Elevated Pelvis Posture Anteriorly Tilted Knee Posture (L) Excess Flexion,(R) Excess Flexion Palpation Assessment Location Neck Palpation Location Subocciptal reg, C3, C4, C5 L TP & C6 cheryl TP tenderness Palpation Findings Tenderness Palpation Details Decreased joint mobility, limited by pain at C1 though C7. Decreased First rib mobility. PT-OP-K Range of Motion Start: 05/13/21 17:17 Freq: Status: Active Protocol: Document 06/11/21 15:09 LRN (Rec: 06/11/21 16:14 LRN [id number]) Cervical Spine Range of Motion Cervical Spine Active Degrees Testing Position Sitting Comments At Start: Rot: 22 deg's right, 10 deg's left. At End: Rot: 38 deg's right, 40 deg's left. PT-OP-L Special Tests Start: 05/13/21 17:17 Freq: Status: Active Protocol: Document 05/14/21 15:07 LRN (Rec: 05/14/21 16:30 LRN [id number]) Special Tests Cervical Spine Special Tests Traction Test Results + Comments Decrease in neck pain. Vertebral Artery Test Results Negative bilaterally PT-OP-M Strength Start: 05/13/21 17:17 Freq: Status: Active Protocol: Document 05/14/21 15:07 LRN (Rec: 05/14/21 16:30 LRN [id number]) Cervical Spine Strength Cervical Spine Manual Muscle Testing Testing Position Sitting Flexion (C1-2) 5 Normal Extension 5 Normal Rotation Left 3+ Fair+ Rotation Right 4 Good Lateral Flexion Left (C3) 5 Normal Lateral Flexion Right (C3) 5 Normal Shoulder Strength Shoulder Manual Muscle Testing Right Comments Generally 5/5 Left Comments Generally 5/5 PT-OP-Q Treatments Start: 05/13/21 17:17 Freq: Status: Active Protocol: Document 06/14/21 10:36 MA (Rec: 06/14/21 11:21 MA [id number]) Therapeutic Exercises Sitting Exercises Chin Tuck Reps/Minutes 8x5 SH C rot Sitting Exercise Name AROM painfree range with and w /o towel Side bilateral Reps/Minutes 8' Comments ROM msmt taken x 2. Pn L subocciput with self rot mob to right. C Flex Sitting Exercise Name AROM painfree range Reps/Minutes 2' Comments ROM msmt taken x 2 C. Ext Sitting Exercise Name AROM painfree range; using towl on posterior neck for traction today Reps/Minutes 4' Comments Active ROM after manual therapy & ice massage; AROM msmt taken x 2 Manual Therapy Treatment Soft Tissue Mobilization Anterior Scalenes Body Location L>R anterior scalenes Mobilization Type Sustained Pressure Intensity/Depth Superficial Body Position Supine Comments Pt on MH Cervical Rotators Body Location Cervical Rotators Mobilization Type Myofascial Release,Other Body Position Supine Comments Pt on MH AROM & Deep Breathing w/head rot. Cervical Paraspinals Body Location Left C/S Paraspinals. Mobilization Type Strumming Intensity/Depth Moderate Body Position Supine Comments Pt on MH PT-OP-R Modalities Start: 05/13/21 17:17 Freq: Status: Active Protocol: Document 06/14/21 10:36 MA (Rec: 06/14/21 11:21 MA [id number]) Hot Pack/Cold Pack Treatment Hot Pack Location Neck during manual therapy Patient Position Supine Treatment Duration (minutes) 10 Patient Tolerance Good PT-OP-T Assessment and Plan Start: 05/13/21 17:17 Freq: Status: Active Protocol: Document 06/14/21 10:36 MA (Rec: 06/14/21 11:21 MA [id number]) Physical Therapy Assessment Goals Three Impairment L sided Neck pain with rotation and waking first in the morning (12/26) Short Term Goal (STG) Decrease pain with cervical rotation to 10/28 (05/27/21: Pt able to limit C. active Rot to avoid pain most of the time). STG Duration 06/15/21 (05/27/21: Progressing [employer] Goal (LTG) Pt will be able to wake in morning without L sided neck pain. (05/20 - 05/27/21: Woke 3x in AM without neck pain). LTG Duration 07/13/21 (05/27/21: met for 3 mornings) Two Impairment Decreased Neck rotation AROM limiting driving & biking Impairment AROM (sitting): rotation: 35 deg's right, 3 deg's left SB: 3 deg's left, 5 deg's right Flex: 5 deg's, Ext: 25 deg's Short Term Goal (STG) Improve cervical AROM 5-10 deg 's. (06/11/21: Post therapy: Active C rot in sit is 38-40 deg's bilaterally ) STG Duration 06/15/21 (06/11/21: MET GOAL) Mcc Goal (LTG) Pt goal is to be able to rotate head at least 35 deg's bilaterally to improve safety with driving and biking. (06/10/21: At Start: Rot: 22 deg's right, 10 deg's left. At End: Rot: 38 deg's right , 40 deg's left.) LTG Duration 07/13/21 (05/27/21: 85% progress towards goal) One Impairment Lacks appropriate self care program. Short Term Goal (STG) Pt will be independent in a self care neck mobility ex program. (05/17/21: Issued HEP for C rot & ext/retraction, held flex/ext & SB due to pain) STG Duration (05/17/21: Progressing) Mcc Goal (LTG) Pt will be independent in a self care HEP of ROM, strengthening and postural ex' s. LTG Duration 07/13/21 (05/17/21: Progressed ROM ex) Assessment Summary Assessment Devaughn arrived with increased neck pain today stating that it started hurting him at dinner last night. COOK CHIEF did not take ROM measurements at beginning of session today but Devaughn was able to rotate CS 38 L and 40 R post-therapy. He has decreased pain when using towl to apply some traction during CS extension. He also enjoys using the towel for CS rotation but needs cues not to aggressively yank on towel to avoid increasing pain. Pt feels the manual work and hot pack in therapy seem to help the most with his pain. He has had increased pain all week but thinks it is due to the stress of his passing and having family in town, changing his normal routine. Physical Therapy Plan Frequency and Duration Frequency of Treatment 2x/Week Plan of Care Start Date 05/14/21 Plan of Care End Date 07/13/21 Therapeutic Interventions Therapeutic Interventions Home Exercise Program,Joint Mobilizations,Manual Therapy, Neuromuscular Re-education, Patient/Caregiver Education, Self-Care/Home Management,Soft Tissue Mobilization, Therapeutic Activities, Therapeutic Exercises Modalities Cold Pack/Ice Massage,Electric Stimulation,Hot Packs, Ultrasound Other Therapeutic Interventions Manual traction Next Visit Focus/Plan Next Note Type Treatment Note Next Visit Plan Measure C. rot at start/end of therapy. Add to HEP: Active C flex/ext/SB w/chin tuck and Stretches: scalenes, [place]. Manual STM & traction, STM ( [place], Lev Scap, Scalenes, SCM. Strengthening of scapular depressor). MWM for rotation, HEP.
--- NOTE | 2021-06-18 16:51 | PT.OTN ---
Current Diagnoses Cervicalgia (06/18/21) Muscle weakness (generalized) (06/18/21) Physical Therapy Treatment Note PT-OP-A Visit Information Start: 05/13/21 17:17 Freq: Status: Active Protocol: Document 06/18/21 15:05 LRN (Rec: 06/18/21 16:44 LRN [id number]) Out-Patient Physical Therapy Visit Information Visit Information Visit Type Progress Note Visit Start Time 15:05 Visit Stop Time 16:00 Total Visit Minutes 55 Visit Number 10 Evaluation Information Evaluation Date 05/14/21 Precautions Precautions arthritis, neuropathy of feet (pain, tingling, numbness), HBP & A. Fib controlled by medications (warfarin, lisinopril), hearing problems, neck pain for 15 yrs. PT-OP-B Current Condition Start: 05/13/21 17:17 Freq: Status: Active Protocol: Document 05/14/21 15:07 LRN (Rec: 05/14/21 16:30 LRN [id number]) Current Condition History of Current Condition Onset Date 4 months ago. Current Complaints L sided neck pain with bilateral neck tightness. History of Current Condition Neck problems for 15 yrs. Was given ex's by chiropractor, but has been having trouble looking behind to back up to left. 4 months ago has been having sharp pain on L side of neck while turning the head either direction. Went to chiropractor but he suggested an X-ray and it showed normal bone structure, so was referred to physical therapy. Meantime started doing massage 1x/week and accupuncture that seems to have relieved the pain down the neck and back and sometimes is able to turn the head without the pain, but sometimes has pain. 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 Retired agricultural banking. Developmental History Developmental History Lives on [facility]. Treatment Goals Patient/Caregiver Goals Pt goal is to be able to rotate head at least 35 deg's to improve driving and biking ability. Pt goal is to be able to wake in morning without L sided neck pain. Prior Functional Status Baseline Function- ADL's Independent Baseline Function- Mobility Independent Current Functional Impairments (Reported) Functional Limitations- ADL's Difficulty rotating head for driving or biking. Wakes in morning with stiff neck (side sleeper) Functional Limitations- Recreation/ Riding street bike difficulty Hobbies Functional Limitations- Other Difficulty driving Personal Factors Other Personal Factors That May Effect 15 yr chronic neck pain Therapy/Recovery history, controlled A.Fib/HBP. Having at same time having massage (1x/week) and accupuncture (2 more appts) treatments. PT-OP-C Subjective Start: 05/13/21 17:17 Freq: Status: Active Protocol: Document 06/18/21 15:05 LRN (Rec: 06/18/21 16:44 LRN [id number]) OP-PT Subjective Patient Comments Patient Comments An hour ago the neck wasn't painful and could rotate; now he has neck pain and rotation is worse to the L and painful to look up. Patient Questionnaires Oswestry Low Back Index Oswestry Score 10 Oswestry Impairment 1 to 19% Impaired (Score 1-19) OP-PT Pain Assessment Location L side of neck Pain Location Details Across the neck at level of C4 -C5 & R O-A joint Intensity 3 Scale Used Numeric (0 - 10) Pain Duration Right O-A pain during C flex/ ext; Left C5-C6 pain with Cervical rotation PT-OP-H Neuro Start: 05/13/21 17:17 Freq: Status: Active Protocol: Document 05/14/21 15:07 LRN (Rec: 05/14/21 16:30 LRN [id number]) Sensation Evaluation Gross Sensation Gross Sensation WNL PT-OP-J Posture/Palpation/Skin Start: 05/13/21 17:17 Freq: Status: Active Protocol: Document 05/14/21 15:07 LRN (Rec: 05/14/21 16:30 LRN [id number]) Posture Evaluation Position Sitting Head/C-Spine Posture Forward Head Shoulder Posture (L) Elevated Pelvis Posture Anteriorly Tilted Knee Posture (L) Excess Flexion,(R) Excess Flexion Palpation Assessment Location Neck Palpation Location Subocciptal reg, C3, C4, C5 L TP & C6 cheryl TP tenderness Palpation Findings Tenderness Palpation Details Decreased joint mobility, limited by pain at C1 though C7. Decreased First rib mobility. PT-OP-K Range of Motion Start: 05/13/21 17:17 Freq: Status: Active Protocol: Document 06/11/21 15:09 LRN (Rec: 06/11/21 16:14 LRN [id number]) Cervical Spine Range of Motion Cervical Spine Active Degrees Testing Position Sitting Comments At Start: Rot: 22 deg's right, 10 deg's left. At End: Rot: 38 deg's right, 40 deg's left. PT-OP-L Special Tests Start: 05/13/21 17:17 Freq: Status: Active Protocol: Document 05/14/21 15:07 LRN (Rec: 05/14/21 16:30 LRN [id number]) Special Tests Cervical Spine Special Tests Traction Test Results + Comments Decrease in neck pain. Vertebral Artery Test Results Negative bilaterally PT-OP-M Strength Start: 05/13/21 17:17 Freq: Status: Active Protocol: Document 05/14/21 15:07 LRN (Rec: 05/14/21 16:30 LRN [id number]) Cervical Spine Strength Cervical Spine Manual Muscle Testing Testing Position Sitting Flexion (C1-2) 5 Normal Extension 5 Normal Rotation Left 3+ Fair+ Rotation Right 4 Good Lateral Flexion Left (C3) 5 Normal Lateral Flexion Right (C3) 5 Normal Shoulder Strength Shoulder Manual Muscle Testing Right Comments Generally 5/5 Left Comments Generally 5/5 PT-OP-Q Treatments Start: 05/13/21 17:17 Freq: Status: Active Protocol: Document 06/18/21 15:05 LRN (Rec: 06/18/21 16:44 LRN [id number]) Therapeutic Exercises Supine Exercises Chin tuck w/cervical rot Supine Exercise Name Chin tuck with active cervical rotation Side bilateral Reps/Minutes 10x each Sitting Exercises Shoulder rolls backward Sitting Exercise Name Shoulder rolls Side bilateral Reps/Minutes 15x before & after C/S AROM C AROM Sitting Exercise Name Flex, Ext, Rot, SB Side bilateral Reps/Minutes 6' Comments ROM taken, ROM msmt taken x 2 Chin Tuck Sitting Exercise Name Chin Tuck Reps/Minutes 10x5 SH C rot Sitting Exercise Name AROM painfree range after MWM Side bilateral Reps/Minutes 8' C Flex Sitting Exercise Name AROM sitting and leaning forward Reps/Minutes 2' before & after manual therapy C. Ext Sitting Exercise Name AROM sitting and leaning forward Reps/Minutes 4' Comments Active ROM after manual therapy & ice massage Manual Therapy Treatment Soft Tissue Mobilization Cervical Rotators Body Location Cervical Rotators Mobilization Type Myofascial Release,Other Body Position Supine Comments AROM & Deep Breathing w/head rot. Cervical Paraspinals Body Location Right C/S Paraspinal at OA/C1- C2. Mobilization Type Sustained Pressure Intensity/Depth Moderate Body Position Supine Comments Also in sitting. Manual Techniques MWM on return from C ext Type Traction at OA on return to neutral from active C/S ext. Body Location Occiput traction Body Position Sitting Reps/Duration 8' x 2 MWM C. Rot Type MWM Cervical L rot with PA at C4 & then C5 Body Location C4, C5 Body Position Sitting Reps/Duration 8' PT-OP-R Modalities Start: 05/13/21 17:17 Freq: Status: Active Protocol: Document 06/14/21 10:36 MA (Rec: 06/14/21 11:21 MA [id number]) Hot Pack/Cold Pack Treatment Hot Pack Location Neck during manual therapy Patient Position Supine Treatment Duration (minutes) 10 Patient Tolerance Good PT-OP-T Assessment and Plan Start: 05/13/21 17:17 Freq: Status: Active Protocol: Document 06/18/21 15:05 LRN (Rec: 06/18/21 16:44 LRN [id number]) Physical Therapy Assessment Rehab Potential Rehabilitation Potential Good Evaluation Complexity Number of Personal Factors/Comorbidities 1-2 Number of Body Systems Impaired 4 or More Clinical Presentation at Evaluation Evolving Impairments Impairments Functional Mobility,Pain,ROM, Strength Goals Three Impairment L sided Neck pain with rotation and waking first in the morning (3/10) Short Term Goal (STG) Decrease pain with cervical rotation to 1/10 (05/27/21: Pt able to limit C. active Rot to avoid pain most of the time). STG Duration 06/15/21 (05/27/21: Variable progress) [facility] Goal (LTG) Pt will be able to wake in morning without L sided neck pain. (06/18/21: With positioning modifications, pt has no pain in mornings). LTG Duration 07/13/21 (06/18/21: MET GOAL) Two Impairment Decreased Neck rotation AROM limiting driving & biking Impairment AROM (sitting): rotation: 35 deg's right, 3 deg's left SB: 3 deg's left, 5 deg's right Flex: 5 deg's, Ext: 25 deg's Short Term Goal (STG) Improve cervical AROM 5-10 deg 's. (06/11/21: Post therapy: Active C rot in sit is 38-40 deg's bilaterally) STG Duration 06/15/21 (06/18/21: Variable progress) [facility] Goal (LTG) Pt goal is to be able to rotate head at least 35 deg's bilaterally to improve safety with driving and biking. (06/10/21: At Start: Rot: 22 deg's right, 10 deg's left. At End: Rot: 38 deg's right , 40 deg's left.) LTG Duration 07/18/21 (05/27/21: 85% progress towards goal) One Impairment Lacks appropriate self care program. Short Term Goal (STG) Pt will be independent in a self care neck mobility ex program. (05/17/21: Issued HEP for C rot & ext/retraction, held flex/ext & SB due to pain) STG Duration 06/15/21 (05/17/21: Progressed ) [employer] Manager Goal (LTG) Pt will be independent in a self care HEP of ROM, strengthening and postural ex' s. LTG Duration 07/18/21 (05/17/21: Progressed ROM ex) Assessment Summary Assessment Overall the pt has made variable progress with improving his cervical AROM and reducing his pain. His Cervical AROM is variable and although his pain intensity remains the same at 3/10, his onset is with cervical rotation and return from extension, instead of first in the morning. His progress has been variable, especially since the passing of his , which is probably hindering his progress. Today he had less pain after MWM for neck flexion (on return from neck ext) at OA. Rotation is limited by pain at ~C4-C5 L side. Advancement of his HEP for active C. flex/ ext and SB was deferred due to cervical pain. The pt is able to sleep better and wakes without pain in the mornings. His forward rounding of his shoulders and head probably exacerbates his condition and may be a reason for his variable progress. 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 The pt may benefit from further skilled physical therapy, especially once his family leaves the area and he has more time to focus on his neck rehabilitation. Physical Therapy Plan Frequency and Duration Frequency of Treatment 2x/Week Plan of Care Start Date 05/14/21 Plan of Care End Date 07/18/21 Therapeutic Interventions Therapeutic Interventions Home Exercise Program,Manual Therapy,Patient/Caregiver Education,Self-Care/Home Management,Soft Tissue Mobilization,Therapeutic Exercises Modalities Cold Pack/Ice Massage,Electric Stimulation,Hot Packs, Ultrasound Next Visit Focus/Plan Next Note Type Treatment Note Next Visit Plan Measure C. rot at start/end of therapy. Add to HEP: Active C flex/ext/SB w/chin tuck and Stretches: neyda, [place]. Manual STM ([place], Lev Scap, Scalenes, SCM. Strengthening of scapular depressor). MWM for rotation & flex, HEP.
--- NOTE | 2021-06-20 13:27 | PT.OTN ---
Current Diagnoses Cervicalgia (06/20/21) Muscle weakness (generalized) (06/20/21) Physical Therapy Treatment Note PT-OP-A Visit Information Start: 05/13/21 17:17 Freq: Status: Active Protocol: Document 06/20/21 09:49 LRN (Rec: 06/20/21 10:34 LRN [id number]) Out-Patient Physical Therapy Visit Information Visit Information Visit Type Treatment Note Visit Start Time 09:50 Visit Stop Time 10:32 Total Visit Minutes 42 Visit Number 11 Evaluation Information Evaluation Date 05/14/21 Precautions Precautions arthritis, neuropathy of feet (pain, tingling, numbness), HBP & A. Fib controlled by medications (warfarin, lisinopril), hearing problems, neck pain for 15 yrs. PT-OP-B Current Condition Start: 05/13/21 17:17 Freq: Status: Active Protocol: Document 05/14/21 15:07 LRN (Rec: 05/14/21 16:30 LRN [id number]) Current Condition History of Current Condition Onset Date 4 months ago. Current Complaints L sided neck pain with bilateral neck tightness. History of Current Condition Neck problems for 15 yrs. Was given ex's by chiropractor, but has been having trouble looking behind to back up to left. 4 months ago has been having sharp pain on L side of neck while turning the head either direction. Went to chiropractor but he suggested an X-ray and it showed normal bone structure, so was referred to physical therapy. Meantime started doing massage 1x/week and accupuncture that seems to have relieved the pain down the neck and back and sometimes is able to turn the head without the pain, but sometimes has pain. 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 Retired agricultural banking. Developmental History Developmental History Lives on [facility]. Treatment Goals Patient/Caregiver Goals Pt goal is to be able to rotate head at least 35 deg's to improve driving and biking ability. Pt goal is to be able to wake in morning without L sided neck pain. Prior Functional Status Baseline Function- ADL's Independent Baseline Function- Mobility Independent Current Functional Impairments (Reported) Functional Limitations- ADL's Difficulty rotating head for driving or biking. Wakes in morning with stiff neck (side sleeper) Functional Limitations- Recreation/ Riding street bike difficulty Hobbies Functional Limitations- Other Difficulty driving Personal Factors Other Personal Factors That May Effect 15 yr chronic neck pain Therapy/Recovery history, controlled A.Fib/HBP. Having at same time having massage (1x/week) and accupuncture (2 more appts) treatments. PT-OP-C Subjective Start: 05/13/21 17:17 Freq: Status: Active Protocol: Document 06/20/21 09:49 LRN (Rec: 06/20/21 13:27 LRN [id number]) OP-PT Subjective Patient Comments Patient Comments Improved, can rotate head to drive easier. Patient Reported Progress Improving PT-OP-H Neuro Start: 05/13/21 17:17 Freq: Status: Active Protocol: Document 05/14/21 15:07 LRN (Rec: 05/14/21 16:30 LRN [id number]) Sensation Evaluation Gross Sensation Gross Sensation WNL PT-OP-J Posture/Palpation/Skin Start: 05/13/21 17:17 Freq: Status: Active Protocol: Document 05/14/21 15:07 LRN (Rec: 05/14/21 16:30 LRN [id number]) Posture Evaluation Position Sitting Head/C-Spine Posture Forward Head Shoulder Posture (L) Elevated Pelvis Posture Anteriorly Tilted Knee Posture (L) Excess Flexion,(R) Excess Flexion Palpation Assessment Location Neck Palpation Location Subocciptal reg, C3, C4, C5 L TP & C6 cheryl TP tenderness Palpation Findings Tenderness Palpation Details Decreased joint mobility, limited by pain at C1 though C7. Decreased First rib mobility. PT-OP-K Range of Motion Start: 05/13/21 17:17 Freq: Status: Active Protocol: Document 06/20/21 09:49 LRN (Rec: 06/20/21 10:34 LRN [id number]) Cervical Spine Range of Motion Cervical Spine Active Degrees Testing Position Sitting Flexion 63 Extension 24 Rotation Left 33 Rotation Right 35 Lateral Flexion Left 20 Lateral Flexion Right 8 PT-OP-L Special Tests Start: 05/13/21 17:17 Freq: Status: Active Protocol: Document 05/14/21 15:07 LRN (Rec: 05/14/21 16:30 LRN [id number]) Special Tests Cervical Spine Special Tests Traction Test Results + Comments Decrease in neck pain. Vertebral Artery Test Results Negative bilaterally PT-OP-M Strength Start: 05/13/21 17:17 Freq: Status: Active Protocol: Document 05/14/21 15:07 LRN (Rec: 05/14/21 16:30 LRN [id number]) Cervical Spine Strength Cervical Spine Manual Muscle Testing Testing Position Sitting Flexion (C1-2) 5 Normal Extension 5 Normal Rotation Left 3+ Fair+ Rotation Right 4 Good Lateral Flexion Left (C3) 5 Normal Lateral Flexion Right (C3) 5 Normal Shoulder Strength Shoulder Manual Muscle Testing Right Comments Generally 5/5 Left Comments Generally 5/5 PT-OP-Q Treatments Start: 05/13/21 17:17 Freq: Status: Active Protocol: Document 06/20/21 09:49 LRN (Rec: 06/20/21 10:34 LRN [id number]) Therapeutic Exercises Sitting Exercises Shoulder rolls backward Sitting Exercise Name Shoulder rolls Side bilateral Reps/Minutes 15x before & after C/S AROM C AROM Sitting Exercise Name Flex/Ext (shoulder rolls between) and rotation, SB Reps/Minutes 7' Manual Therapy Treatment Soft Tissue Mobilization L UT Body Location L UT Mobilization Type Sustained Pressure,Trigger Point Release Anterior Scalenes Body Location L>R anterior scalenes Mobilization Type Sustained Pressure Intensity/Depth Superficial Body Position Supine Joint Mobilizations 1st rib Joint 1st rib Direction Inferior Grade II Body Position Supine Reps/Duration 4' Self-Care/Home Management Treatment Education Patient Education Home Exercise Program,Posture Other Education Extended discussion of home exercise routine and number of reps. Discussed how his home activities may cause his home program to vary. Discussed posture/movements/activities that might exacerbate his condition. Activities Self-Care/Home Management Activities Issued & reviewed HEP: SCalene stretch PT-OP-R Modalities Start: 05/13/21 17:17 Freq: Status: Active Protocol: Document 06/14/21 10:36 MA (Rec: 06/14/21 11:21 MA [id number]) Hot Pack/Cold Pack Treatment Hot Pack Location Neck during manual therapy Patient Position Supine Treatment Duration (minutes) 10 Patient Tolerance Good PT-OP-T Assessment and Plan Start: 05/13/21 17:17 Freq: Status: Active Protocol: Document 06/20/21 09:49 LRN (Rec: 06/20/21 10:34 LRN [id number]) Physical Therapy Assessment Goals Three Impairment L sided Neck pain with rotation and waking first in the morning (3/10) Short Term Goal (STG) Decrease pain with cervical rotation to 1/10 (05/27/21: Pt able to limit C. active Rot to avoid pain most of the time). STG Duration 06/15/21 (05/27/21: Variable progress) Halfway Goal (LTG) Pt will be able to wake in morning without L sided neck pain. (06/18/21: With positioning modifications, pt has no pain in mornings). LTG Duration 07/13/21 (06/18/21: MET GOAL) Two Impairment Decreased Neck rotation AROM limiting driving & biking Impairment AROM (sitting): rotation: 35 deg's right, 3 deg's left SB: 3 deg's left, 5 deg's right Flex: 5 deg's, Ext: 25 deg's Short Term Goal (STG) Improve cervical AROM 5-10 deg 's. (06/20/21: Post therapy: AROM ( sitting): Flex 63 deg's, Ext 24 deg's, SB: 8 right, 20 left ; ROT: 35 deg's right, 33 deg' s left. STG Duration 06/15/21 (06/20/21: Improved from last session) Halfway Goal (LTG) Pt goal is to be able to rotate head at least 35 deg's bilaterally to improve safety with driving and biking. (06/11/21: At Start: Rot: 22 deg's right, 10 deg's left. At End: Rot: 38 deg's right , 40 deg's left.) (06/20/21: C. ROT : 35 deg's right, 33 deg's left) LTG Duration 07/18/21 (05/27/21: 85% progress towards goal) One Impairment Lacks appropriate self care program. Short Term Goal (STG) Pt will be independent in a self care neck mobility ex program. (05/17/21: Issued HEP for C rot & ext/retraction, held flex/ext & SB due to pain) STG Duration 06/15/21 (05/17/21: Progressed ) Halfway Goal (LTG) Pt will be independent in a self care HEP of ROM, strengthening and postural ex' s. (06/20/21: Added Scalene/SCM stretch) LTG Duration 07/18/21 (06/20/21: Progressed) Progress Towards Goals Progress Comments Progressed HEP Assessment Summary Assessment Pt presents with less complaints of neck pain and ability to move his head in flex/ext motion with minimal pain. His rotation motion is becoming more symmetrical at 35 deg's right, 33 deg's left. Pt needs to cont to limit flex and decrease soft tissue guarding at Scalenes/UT and decrease elevation of first rib. Physical Therapy Plan Frequency and Duration Frequency of Treatment 2x/Week Plan of Care Start Date 05/14/21 Plan of Care End Date 07/18/21 Next Visit Focus/Plan Next Note Type Treatment Note Next Visit Plan Measure C. rot at start/end of therapy. Add to HEP: Active C flex/ext/SB w/chin tuck handout. Stretches: L scalenes, UT. Manual STM (UT, Lev Scap, Scalenes, SCM & depress 1st rib with sustained pressure. Strengthen scapular depressors. HEP. MWM for rotation & flex if needed.
--- NOTE | 2021-06-25 16:13 | PT.OTN ---
Current Diagnoses Cervicalgia (06/25/21) Muscle weakness (generalized) (06/25/21) Physical Therapy Treatment Note PT-OP-A Visit Information Start: 05/13/21 17:17 Freq: Status: Active Protocol: Document 06/25/21 13:35 OF (Rec: 06/25/21 16:12 OF [email or web address]) Out-Patient Physical Therapy Visit Information Visit Information Visit Type Treatment Note Visit Start Time 12:55 Visit Stop Time 13:35 Total Visit Minutes 40 Visit Number 12 Evaluation Information Evaluation Date 05/14/21 Precautions Precautions arthritis, neuropathy of feet (pain, tingling, numbness), HBP & A. Fib controlled by medications (warfarin, lisinopril), hearing problems, neck pain for 15 yrs. PT-OP-B Current Condition Start: 05/13/21 17:17 Freq: Status: Active Protocol: Document 05/14/21 15:07 LRN (Rec: 05/14/21 16:30 LRN [id number]) Current Condition History of Current Condition Onset Date 4 months ago. Current Complaints L sided neck pain with bilateral neck tightness. History of Current Condition Neck problems for 15 yrs. Was given ex's by chiropractor, but has been having trouble looking behind to back up to left. 4 months ago has been having sharp pain on L side of neck while turning the head either direction. Went to chiropractor but he suggested an X-ray and it showed normal bone structure, so was referred to physical therapy. Meantime started doing massage 1x/week and accupuncture that seems to have relieved the pain down the neck and back and sometimes is able to turn the head without the pain, but sometimes has pain. 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 Retired agricultural banking. Developmental History Developmental History Lives on [facility]. Treatment Goals Patient/Caregiver Goals Pt goal is to be able to rotate head at least 35 deg's to improve driving and biking ability. Pt goal is to be able to wake in morning without L sided neck pain. Prior Functional Status Baseline Function- ADL's Independent Baseline Function- Mobility Independent Current Functional Impairments (Reported) Functional Limitations- ADL's Difficulty rotating head for driving or biking. Wakes in morning with stiff neck (side sleeper) Functional Limitations- Recreation/ Riding street bike difficulty Hobbies Functional Limitations- Other Difficulty driving Personal Factors Other Personal Factors That May Effect 15 yr chronic neck pain Therapy/Recovery history, controlled A.Fib/HBP. Having at same time having massage (1x/week) and accupuncture (2 more appts) treatments. PT-OP-C Subjective Start: 05/13/21 17:17 Freq: Status: Active Protocol: Document 06/25/21 13:35 OF (Rec: 06/25/21 16:12 OF [email or web address]) OP-PT Subjective Patient Comments Patient Comments pt reports improved mobility with hiking/driving Patient Reported Progress Improving OP-PT Pain Assessment Pain Assessment Grid Paper Pain Assessment Grid Completed pt denies pain today PT-OP-H Neuro Start: 05/13/21 17:17 Freq: Status: Active Protocol: Document 05/14/21 15:07 LRN (Rec: 05/14/21 16:30 LRN [id number]) Sensation Evaluation Gross Sensation Gross Sensation WNL PT-OP-J Posture/Palpation/Skin Start: 05/13/21 17:17 Freq: Status: Active Protocol: Document 05/14/21 15:07 LRN (Rec: 05/14/21 16:30 LRN [id number]) Posture Evaluation Position Sitting Head/C-Spine Posture Forward Head Shoulder Posture (L) Elevated Pelvis Posture Anteriorly Tilted Knee Posture (L) Excess Flexion,(R) Excess Flexion Palpation Assessment Location Neck Palpation Location Subocciptal reg, C3, C4, C5 L TP & C6 cheryl TP tenderness Palpation Findings Tenderness Palpation Details Decreased joint mobility, limited by pain at C1 though C7. Decreased First rib mobility. PT-OP-K Range of Motion Start: 05/13/21 17:17 Freq: Status: Active Protocol: Document 06/20/21 09:49 LRN (Rec: 06/20/21 10:34 LRN [id number]) Cervical Spine Range of Motion Cervical Spine Active Degrees Testing Position Sitting Flexion 63 Extension 24 Rotation Left 33 Rotation Right 35 Lateral Flexion Left 20 Lateral Flexion Right 8 PT-OP-L Special Tests Start: 05/13/21 17:17 Freq: Status: Active Protocol: Document 05/14/21 15:07 LRN (Rec: 05/14/21 16:30 LRN [id number]) Special Tests Cervical Spine Special Tests Traction Test Results + Comments Decrease in neck pain. Vertebral Artery Test Results Negative bilaterally PT-OP-M Strength Start: 05/13/21 17:17 Freq: Status: Active Protocol: Document 05/14/21 15:07 LRN (Rec: 05/14/21 16:30 LRN [id number]) Cervical Spine Strength Cervical Spine Manual Muscle Testing Testing Position Sitting Flexion (C1-2) 5 Normal Extension 5 Normal Rotation Left 3+ Fair+ Rotation Right 4 Good Lateral Flexion Left (C3) 5 Normal Lateral Flexion Right (C3) 5 Normal Shoulder Strength Shoulder Manual Muscle Testing Right Comments Generally 5/5 Left Comments Generally 5/5 PT-OP-Q Treatments Start: 05/13/21 17:17 Freq: Status: Active Protocol: Document 06/25/21 13:35 OF (Rec: 06/25/21 16:12 OF [email or web address]) Therapeutic Exercises Supine Exercises Chin tuck w/cervical rot Supine Exercise Name Chin tuck with active cervical rotation Side bilateral Reps/Minutes 2x10 Sitting Exercises Shoulder rolls backward Sitting Exercise Name Shoulder rolls Side bilateral Reps/Minutes 15x2 before & after C/S AROM C AROM Sitting Exercise Name Flex/Ext (shoulder rolls between) and rotation, SB Reps/Minutes 7' Comments AAROM for end range rotation, pain free ROM Chin Tuck Sitting Exercise Name Chin Tuck Reps/Minutes 10x5 SH C Flex Sitting Exercise Name AROM sitting and leaning forward Reps/Minutes 2' before & after manual therapy Manual Therapy Treatment Soft Tissue Mobilization L UT Body Location L UT Mobilization Type Sustained Pressure,Trigger Point Release Anterior Scalenes Body Location L>anterior scalenes Mobilization Type Sustained Pressure Intensity/Depth Moderate Body Position Supine Comments added side bend for increased stretch Cervical Rotators Body Location Cervical Rotators Mobilization Type Myofascial Release,Other Body Position Supine Comments AROM & Deep Breathing w/head rot. nECK Body Location Neck subocciptal release Mobilization Type Sustained Pressure Intensity/Depth Moderate Body Position Supine Comments cues for cervical retraction Joint Mobilizations 1st rib Joint 1st rib Direction Inferior Grade II Body Position Supine Reps/Duration 4' Self-Care/Home Management Treatment Education Patient Education Home Exercise Program PT-OP-R Modalities Start: 05/13/21 17:17 Freq: Status: Active Protocol: Document 06/14/21 10:36 MA (Rec: 06/14/21 11:21 MA [id number]) Hot Pack/Cold Pack Treatment Hot Pack Location Neck during manual therapy Patient Position Supine Treatment Duration (minutes) 10 Patient Tolerance Good PT-OP-T Assessment and Plan Start: 05/13/21 17:17 Freq: Status: Active Protocol: Document 06/25/21 13:35 OF (Rec: 06/25/21 16:12 OF [email or web address]) Physical Therapy Assessment Rehab Potential Rehabilitation Potential Good Evaluation Complexity Number of Personal Factors/Comorbidities 1-2 Number of Body Systems Impaired 1-2 Clinical Presentation at Evaluation Stable Impairments Impairments Functional Mobility,Pain,ROM, Strength Goals Three Impairment L sided Neck pain with rotation and waking first in the morning (/) Short Term Goal (STG) Decrease pain with cervical rotation to 1/10 (05/27/21: Pt able to limit C. active Rot to avoid pain most of the time). STG Duration 06/15/21 (05/27/21: Variable progress) Long-Term Goal (LTG) Pt will be able to wake in morning without L sided neck pain. (06/18/21: With positioning modifications, pt has no pain in mornings). LTG Duration 07/13/21 (06/18/21: MET GOAL) Progress Towards Goals Progress Towards Goals Progressing Toward Goals Assessment Summary Assessment pt has improved function with driving and hiking at home. He reports HEP as instructed, using hand instead of towel for scalene stretching. Physical Therapy Plan Frequency and Duration Frequency of Treatment 2x/Week Plan of Care Start Date 05/14/21 Plan of Care End Date 07/18/21 Therapeutic Interventions Therapeutic Interventions Home Exercise Program,Manual Therapy,Patient/Caregiver Education,Self-Care/Home Management,Soft Tissue Mobilization,Therapeutic Exercises Next Visit Focus/Plan Next Note Type Treatment Note Next Visit Plan Measure C. rot at start/end of therapy. Add to HEP: Active C flex/ext/SB w/chin tuck handout. Stretches: L scalenes, UT. Manual STM (UT, Lev Scap, Scalenes, SCM & depress 1st rib with sustained pressure. Strengthen scapular depressors. HEP. MWM for rotation & flex if needed. re assess AAROM for rotation, progress chin tucks if tolerated
--- NOTE | 2021-07-09 16:19 | PT.OTN ---
Current Diagnoses Cervicalgia (07/09/21) Muscle weakness (generalized) (07/09/21) Physical Therapy Treatment Note PT-OP-A Visit Information Start: 05/13/21 17:17 Freq: Status: Active Protocol: Document 07/09/21 15:06 LRN (Rec: 07/09/21 16:17 LRN [id number]) Out-Patient Physical Therapy Visit Information Visit Information Visit Type Treatment Note Visit Start Time 15:06 Visit Stop Time 16:00 Total Visit Minutes 54 Visit Number 13 Evaluation Information Evaluation Date 05/14/21 Precautions Precautions arthritis, neuropathy of feet (pain, tingling, numbness), HBP & A. Fib controlled by medications (warfarin, lisinopril), hearing problems, neck pain for 15 yrs. PT-OP-B Current Condition Start: 05/13/21 17:17 Freq: Status: Active Protocol: Document 05/14/21 15:07 LRN (Rec: 05/14/21 16:30 LRN [id number]) Current Condition History of Current Condition Onset Date 4 months ago. Current Complaints L sided neck pain with bilateral neck tightness. History of Current Condition Neck problems for 15 yrs. Was given ex's by chiropractor, but has been having trouble looking behind to back up to left. 4 months ago has been having sharp pain on L side of neck while turning the head either direction. Went to chiropractor but he suggested an X-ray and it showed normal bone structure, so was referred to physical therapy. Meantime started doing massage 1x/week and accupuncture that seems to have relieved the pain down the neck and back and sometimes is able to turn the head without the pain, but sometimes has pain. 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 Retired agricultural banking. Developmental History Developmental History Lives on [facility]. Treatment Goals Patient/Caregiver Goals Pt goal is to be able to rotate head at least 35 deg's to improve driving and biking ability. Pt goal is to be able to wake in morning without L sided neck pain. Prior Functional Status Baseline Function- ADL's Independent Baseline Function- Mobility Independent Current Functional Impairments (Reported) Functional Limitations- ADL's Difficulty rotating head for driving or biking. Wakes in morning with stiff neck (side sleeper) Functional Limitations- Recreation/ Riding street bike difficulty Hobbies Functional Limitations- Other Difficulty driving Personal Factors Other Personal Factors That May Effect 15 yr chronic neck pain Therapy/Recovery history, controlled A.Fib/HBP. Having at same time having massage (1x/week) and accupuncture (2 more appts) treatments. PT-OP-C Subjective Start: 05/13/21 17:17 Freq: Status: Active Protocol: Document 07/09/21 15:06 LRN (Rec: 07/09/21 16:17 LRN [id number]) OP-PT Subjective Patient Comments Patient Comments Doesn't have the knot in the L side of neck. Has been able to bend over and throw wood in a fire. Tired for the past couple days. The neck is generally sore. With neck rota and SB has cracking on the L side. Pain this morning was all across the neck. Neck end-range rot is 5 /10 L, 4/10 R; at end of therapy pain is 3/10. States driving he can look both directions in the mirror without pain. OP-PT Pain Assessment Comments Pain Comments Pain with C. rot at start of therapy is 5/10 L, 4/10 R. Pain with C. rot at end of therapy (after ice) is 3/10 bilaterally. PT-OP-H Neuro Start: 05/13/21 17:17 Freq: Status: Active Protocol: Document 05/14/21 15:07 LRN (Rec: 05/14/21 16:30 LRN [id number]) Sensation Evaluation Gross Sensation Gross Sensation WNL PT-OP-J Posture/Palpation/Skin Start: 05/13/21 17:17 Freq: Status: Active Protocol: Document 05/14/21 15:07 LRN (Rec: 05/14/21 16:30 LRN [id number]) Posture Evaluation Position Sitting Head/C-Spine Posture Forward Head Shoulder Posture (L) Elevated Pelvis Posture Anteriorly Tilted Knee Posture (L) Excess Flexion,(R) Excess Flexion Palpation Assessment Location Neck Palpation Location Subocciptal reg, C3, C4, C5 L TP & C6 espinoza TP tenderness Palpation Findings Tenderness Palpation Details Decreased joint mobility, limited by pain at C1 though C7. Decreased First rib mobility. PT-OP-K Range of Motion Start: 05/13/21 17:17 Freq: Status: Active Protocol: Document 07/09/21 15:06 LRN (Rec: 07/09/21 16:17 LRN [id number]) Cervical Spine Range of Motion Cervical Spine Active Degrees Testing Position Sitting Flexion 43 Extension 30 Rotation Left 30 Rotation Right 30 Lateral Flexion Left 12 Lateral Flexion Right 14 Comments AROM taken at end of therapy. AROM taken at start of therapy is: Flex 43 deg's, Ext 24 deg's, SB: 12 right, 12 left; ROT: 28 deg's right, 25 deg' s left. PT-OP-L Special Tests Start: 05/13/21 17:17 Freq: Status: Active Protocol: Document 05/14/21 15:07 LRN (Rec: 05/14/21 16:30 LRN [id number]) Special Tests Cervical Spine Special Tests Traction Test Results + Comments Decrease in neck pain. Vertebral Artery Test Results Negative bilaterally PT-OP-M Strength Start: 05/13/21 17:17 Freq: Status: Active Protocol: Document 05/14/21 15:07 LRN (Rec: 05/14/21 16:30 LRN [id number]) Cervical Spine Strength Cervical Spine Manual Muscle Testing Testing Position Sitting Flexion (C1-2) 5 Normal Extension 5 Normal Rotation Left 3+ Fair+ Rotation Right 4 Good Lateral Flexion Left (C3) 5 Normal Lateral Flexion Right (C3) 5 Normal Shoulder Strength Shoulder Manual Muscle Testing Right Comments Generally 5/5 Left Comments Generally 5/5 PT-OP-Q Treatments Start: 05/13/21 17:17 Freq: Status: Active Protocol: Document 07/09/21 15:06 LRN (Rec: 07/09/21 16:17 LRN [id number]) Therapeutic Exercises Supine Exercises Chin tuck w/cervical rot Supine Exercise Name Chin tuck with active cervical rotation Side bilateral Reps/Minutes 1x10 Sitting Exercises C AROM Sitting Exercise Name Flex/Ext (shoulder rolls between) and rotation, SB Reps/Minutes 8' Comments ROM taken C rot Sitting Exercise Name Active C. Rot Side bilateral C Flex Sitting Exercise Name AROM sitting and leaning forward Reps/Minutes 2' before & after manual therapy Manual Therapy Treatment Soft Tissue Mobilization L UT Body Location L UT Mobilization Type Sustained Pressure,Trigger Point Release Anterior Scalenes Body Location L>anterior scalenes Mobilization Type Sustained Pressure Intensity/Depth Moderate Body Position Supine Comments added side bend for increased stretch Cervical Rotators Body Location Cervical Rotators Mobilization Type Myofascial Release,Other Body Position Supine Comments AROM & Deep Breathing w/head rot. nECK Body Location Neck L subocciptal release Mobilization Type Sustained Pressure Intensity/Depth Moderate Body Position Supine Comments cues for cervical retraction PT-OP-R Modalities Start: 05/13/21 17:17 Freq: Status: Active Protocol: Document 07/09/21 15:06 LRN (Rec: 07/09/21 16:17 LRN [id number]) Hot Pack/Cold Pack Treatment Cold Pack Location Neck post therapy Patient Position Hooklying Treatment Duration (minutes) 10 Patient Tolerance Good PT-OP-T Assessment and Plan Start: 05/13/21 17:17 Freq: Status: Active Protocol: Document 07/09/21 15:06 LRN (Rec: 07/09/21 16:17 LRN [id number]) Physical Therapy Assessment Goals Three Impairment L sided Neck pain with rotation and waking first in the morning (3/10) Short Term Goal (STG) Decrease pain with cervical rotation to 1/10 (05/27/21: Pt able to limit C. active Rot to avoid pain most of the time). (07/09/21: Neck more sore, pain rated 5/10 L rot, 4/10 R rot, after therapy 3/10) STG Duration 06/15/21 (05/27/21: Variable progress) Probation Supervisor Goal (LTG) Pt will be able to wake in morning without L sided neck pain. (06/18/21: With positioning modifications, pt has no pain in mornings). LTG Duration 07/13/21 (06/18/21: MET GOAL) Two Impairment Decreased Neck rotation AROM limiting driving & biking Impairment AROM (sitting): rotation: 35 deg's right, 3 deg's left SB: 3 deg's left, 5 deg's right Flex: 5 deg's, Ext: 25 deg's Short Term Goal (STG) Improve cervical AROM 5-10 deg 's. (06/20/21: Post therapy: AROM ( sitting): Flex 63 deg's, Ext 24 deg's, SB: 8 right, 20 left ; ROT: 35 deg's right, 33 deg' s left.) (07/09/21: AROM (sitting) Start of therapy: Flex 43 deg's, Ext 24 deg's, SB: 12 right, 12 left; ROT: 28 deg's right, 25 deg's left. AROM (sitting) END of therapy: Flex 43 deg's, Ext 30 deg's, SB: 14 right, 12 left; ROT: 30 deg's right, 30 deg's left ). STG Duration 06/15/21 (07/09/21: GOAL MET except R rot is same ) Intermediate Goal (LTG) Pt goal is to be able to rotate head at least 35 deg's bilaterally to improve safety with driving and biking. (06/11/21: At Start: Rot: 22 deg's right, 10 deg's left. At End: Rot: 38 deg's right , 40 deg's left.) (06/20/21: C. ROT : 35 deg's right, 33 deg's left) LTG Duration 07/18/21 (07/09/21: 80-85% progress towards goal) One Impairment Lacks appropriate self care program. Short Term Goal (STG) Pt will be independent in a self care neck mobility ex program. (05/17/21: Issued HEP for C rot & ext/retraction, held flex/ext & SB due to pain) STG Duration 06/15/21 (05/17/21: Progressed ) Probation Supervisor Goal (LTG) Pt will be independent in a self care HEP of ROM, strengthening and postural ex' s. (06/20/21: Added Scalene/SCM stretch) LTG Duration 07/18/21 (06/20/21: Progressed) Progress Towards Goals Progress Comments STG #2 Met post therapy Cervical AROM measurements. Assessment Summary Assessment Cervical mobility has improved 5 deg's or more in all motions except for R rot. L side of neck has limited mobility of L rot & Espinoza SB, flex & ext. Physical Therapy Plan Frequency and Duration Frequency of Treatment 2x/Week Plan of Care Start Date 05/14/21 Plan of Care End Date 07/18/21 Next Visit Focus/Plan Next Note Type Treatment Note Next Visit Plan Measure C. rot at start/end of therapy. Focus on improving C. AROM with expected DC in 3 visits. Reassess AAROM for rotation, progress chin tucks if tolerated. Add to HEP: Active C flex/ext/SB w/chin tuck handout. Stretches: L scalenes, UT. Manual STM neck rotators. Strengthen scapular depressors. MWM for rotation & flex if needed.
--- NOTE | 2021-07-12 16:14 | PT.OTN ---
Current Diagnoses Cervicalgia (07/12/21) Muscle weakness (generalized) (07/12/21) Physical Therapy Treatment Note PT-OP-A Visit Information Start: 05/13/21 17:17 Freq: Status: Active Protocol: Document 07/12/21 15:03 LRN (Rec: 07/12/21 16:12 LRN [id number]) Out-Patient Physical Therapy Visit Information Visit Information Visit Type Treatment Note Visit Start Time 15:03 Visit Stop Time 15:45 Total Visit Minutes 42 Visit Number 14 Evaluation Information Evaluation Date 05/14/21 Precautions Precautions arthritis, neuropathy of feet (pain, tingling, numbness), HBP & A. Fib controlled by medications (warfarin, lisinopril), hearing problems, neck pain for 15 yrs. PT-OP-B Current Condition Start: 05/13/21 17:17 Freq: Status: Active Protocol: Document 05/14/21 15:07 LRN (Rec: 05/14/21 16:30 LRN [id number]) Current Condition History of Current Condition Onset Date 4 months ago. Current Complaints L sided neck pain with bilateral neck tightness. History of Current Condition Neck problems for 15 yrs. Was given ex's by chiropractor, but has been having trouble looking behind to back up to left. 4 months ago has been having sharp pain on L side of neck while turning the head either direction. Went to chiropractor but he suggested an X-ray and it showed normal bone structure, so was referred to physical therapy. Meantime started doing massage 1x/week and accupuncture that seems to have relieved the pain down the neck and back and sometimes is able to turn the head without the pain, but sometimes has pain. 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 Retired agricultural banking. Developmental History Developmental History Lives on [facility]. Treatment Goals Patient/Caregiver Goals Pt goal is to be able to rotate head at least 35 deg's to improve driving and biking ability. Pt goal is to be able to wake in morning without L sided neck pain. Prior Functional Status Baseline Function- ADL's Independent Baseline Function- Mobility Independent Current Functional Impairments (Reported) Functional Limitations- ADL's Difficulty rotating head for driving or biking. Wakes in morning with stiff neck (side sleeper) Functional Limitations- Recreation/ Riding street bike difficulty Hobbies Functional Limitations- Other Difficulty driving Personal Factors Other Personal Factors That May Effect 15 yr chronic neck pain Therapy/Recovery history, controlled A.Fib/HBP. Having at same time having massage (1x/week) and accupuncture (2 more appts) treatments. PT-OP-C Subjective Start: 05/13/21 17:17 Freq: Status: Active Protocol: Document 07/12/21 15:03 LRN (Rec: 07/12/21 16:12 LRN [id number]) OP-PT Subjective Patient Comments Patient Comments States he just had a massage, so his neck is not stiff. Waking feeling better. Only pain was when he first got on bike to lift head up, but got better as he was riding. [place] Neck was cracking with sidebending. PT-OP-H Neuro Start: 05/13/21 17:17 Freq: Status: Active Protocol: Document 05/14/21 15:07 LRN (Rec: 05/14/21 16:30 LRN [id number]) Sensation Evaluation Gross Sensation Gross Sensation WNL PT-OP-J Posture/Palpation/Skin Start: 05/13/21 17:17 Freq: Status: Active Protocol: Document 05/14/21 15:07 LRN (Rec: 05/14/21 16:30 LRN [id number]) Posture Evaluation Position Sitting Head/C-Spine Posture Forward Head Shoulder Posture (L) Elevated Pelvis Posture Anteriorly Tilted Knee Posture (L) Excess Flexion,(R) Excess Flexion Palpation Assessment Location Neck Palpation Location Subocciptal reg, C3, C4, C5 L TP & C6 cheryl TP tenderness Palpation Findings Tenderness Palpation Details Decreased joint mobility, limited by pain at C1 though C7. Decreased First rib mobility. PT-OP-K Range of Motion Start: 05/13/21 17:17 Freq: Status: Active Protocol: Document 07/12/21 15:03 LRN (Rec: 07/12/21 16:12 LRN [id number]) Cervical Spine Range of Motion Cervical Spine Active Degrees Testing Position Sitting Flexion 30 Extension 35 Rotation Left 35 Rotation Right 40 Lateral Flexion Left 12 Lateral Flexion Right 15 Comments AROM taken at end of therapy. AROM at START of therapy: Flex 41 deg's, Ext 38 deg's, SB: deferred testing; ROT: 38 deg's right, 30 deg's left. PT-OP-L Special Tests Start: 05/13/21 17:17 Freq: Status: Active Protocol: Document 05/14/21 15:07 LRN (Rec: 05/14/21 16:30 LRN [id number]) Special Tests Cervical Spine Special Tests Traction Test Results + Comments Decrease in neck pain. Vertebral Artery Test Results Negative bilaterally PT-OP-M Strength Start: 05/13/21 17:17 Freq: Status: Active Protocol: Document 05/14/21 15:07 LRN (Rec: 05/14/21 16:30 LRN [id number]) Cervical Spine Strength Cervical Spine Manual Muscle Testing Testing Position Sitting Flexion (C1-2) 5 Normal Extension 5 Normal Rotation Left 3+ Fair+ Rotation Right 4 Good Lateral Flexion Left (C3) 5 Normal Lateral Flexion Right (C3) 5 Normal Shoulder Strength Shoulder Manual Muscle Testing Right Comments Generally 5/5 Left Comments Generally 5/5 PT-OP-Q Treatments Start: 05/13/21 17:17 Freq: Status: Active Protocol: Document 07/12/21 15:03 LRN (Rec: 07/12/21 16:12 LRN [id number]) Therapeutic Exercises Supine Exercises Chin tuck w/cervical rot Supine Exercise Name Chin tuck with active cervical rotation Side bilateral Reps/Minutes 5' Sitting Exercises Shoulder rolls backward Sitting Exercise Name Shoulder rolls Side bilateral Reps/Minutes 2' C AROM Sitting Exercise Name Flex/Ext (shoulder rolls between) and rotation, SB Reps/Minutes 5' Comments ROM taken before and after therapy C rot Sitting Exercise Name Active C. Rot Side bilateral Reps/Minutes 6' Comments Cuing for chin tuck C SB Sitting Exercise Name Active C. SB Side bilateral Reps/Minutes 2' Comments DC'd after not able to get pt to perform within painfree range C Flex Sitting Exercise Name Active C. Flex Reps/Minutes 2' C. Ext Sitting Exercise Name Active C. Ext and neck elongation Reps/Minutes 2' Manual Therapy Treatment Soft Tissue Mobilization L UT Body Location L UT Mobilization Type Sustained Pressure,Trigger Point Release nECK Body Location Neck L subocciptal release Mobilization Type Sustained Pressure Intensity/Depth Moderate Body Position Supine Comments cues for cervical retraction Self-Care/Home Management Treatment Education Patient Education Home Exercise Program Activities Self-Care/Home Management Activities Issued & reviewed HEP: Neck flex/ext & shoulder rolls. PT-OP-R Modalities Start: 05/13/21 17:17 Freq: Status: Active Protocol: Document 07/09/21 15:06 LRN (Rec: 07/09/21 16:17 LRN [id number]) Hot Pack/Cold Pack Treatment Cold Pack Location Neck post therapy Patient Position Hooklying Treatment Duration (minutes) 10 Patient Tolerance Good PT-OP-T Assessment and Plan Start: 05/13/21 17:17 Freq: Status: Active Protocol: Document 07/12/21 15:03 LRN (Rec: 07/12/21 16:12 LRN [id number]) Physical Therapy Assessment Goals Three Impairment L sided Neck pain with rotation and waking first in the morning (12/26) Short Term Goal (STG) Decrease pain with cervical rotation to 10/28 (07/12/21: No Neck pain noted with daily activities) STG Duration 06/15/21 (05/27/21: Variable progress) Food And Beverage Attendant Goal (LTG) Pt will be able to wake in morning without L sided neck pain. (06/18/21: With positioning modifications, pt has no pain in mornings). LTG Duration 07/13/21 (06/18/21: MET GOAL) Two Impairment Decreased Neck rotation AROM limiting driving & biking Impairment AROM (sitting): rotation: 35 deg's right, 3 deg's left SB: 3 deg's left, 5 deg's right Flex: 5 deg's, Ext: 25 deg's Short Term Goal (STG) Improve cervical AROM 5-10 deg 's. (06/20/21: Post therapy: AROM ( sitting): Flex 63 deg's, Ext 24 deg's, SB: 8 right, 20 left ; ROT: 35 deg's right, 33 deg' s left.) (07/09/21: AROM (sitting) Start of therapy: Flex 43 deg's, Ext 24 deg's, SB: 12 right, 12 left; ROT: 28 deg's right, 25 deg's left. AROM (sitting) END of therapy: Flex 43 deg's, Ext 30 deg's, SB: 14 right, 12 left; ROT: 30 deg's right, 30 deg's left ). STG Duration 06/15/21 (07/09/21: GOAL MET except R rot is same ) Food And Beverage Attendant Goal (LTG) Pt goal is to be able to rotate head at least 35 deg's bilaterally to improve safety with driving and biking. (06/11/21: At Start: Rot: 22 deg's right, 10 deg's left. At End: Rot: 38 deg's right , 40 deg's left.) (06/20/21: C. ROT : 35 deg's right, 33 deg's left) LTG Duration 07/18/21 (07/09/21: 80-85% progress towards goal) One Impairment Lacks appropriate self care program. Short Term Goal (STG) Pt will be independent in a self care neck mobility ex program. (07/12/21: Issued previously HEP for C rot & ext/retraction , New issue of flex/ext) STG Duration 06/15/21 (07/12/21: MET GOAL) Snf Goal (LTG) Pt will be independent in a self care HEP of ROM, strengthening and postural ex' s. (06/20/21: Added Scalene/SCM stretch) (07/12/21: Added C. flex/ext AROM to the current HEP of rot and neck elongation) LTG Duration 07/18/21 (06/20/21: Progressed) Progress Towards Goals Progress Comments Progressed HEP to complete neck ROM HEP. Assessment Summary Assessment Pt has good cervical mobility to start since he had a massage to the neck and upper shoulders just before therapy. He has no complaints with cervical mobility with biking. Pt now needs final set up on HEP. Pt cervical mobility decreased after performing cervical SB stretches; therefore not issued for HEP. Physical Therapy Plan Frequency and Duration Frequency of Treatment 2x/Week Plan of Care Start Date 05/14/21 Plan of Care End Date 07/18/21 Next Visit Focus/Plan Next Note Type Treatment Note Next Visit Plan Measure C. rot at start/end of therapy. Focus on improving C. AROM. Place pt on comprehensive HEP for his current condition and DC in 2 visits. Add to HEP: Strengthen scapular depressors . Cont STM neck rotators. MWM for rotation & flex if needed.
--- NOTE | 2021-07-16 15:54 | PT.OTN ---
Current Diagnoses Cervicalgia (07/16/21) Muscle weakness (generalized) (07/16/21) Physical Therapy Treatment Note PT-OP-A Visit Information Start: 05/13/21 17:17 Freq: Status: Active Protocol: Document 07/16/21 15:08 LRN (Rec: 07/16/21 15:53 LRN [id number]) Out-Patient Physical Therapy Visit Information Visit Information Visit Type Treatment Note Visit Start Time 15:08 Visit Stop Time 15:48 Total Visit Minutes 40 Visit Number 15 Evaluation Information Evaluation Date 05/14/21 Precautions Precautions arthritis, neuropathy of feet (pain, tingling, numbness), HBP & A. Fib controlled by medications (warfarin, lisinopril), hearing problems, neck pain for 15 yrs. PT-OP-B Current Condition Start: 05/13/21 17:17 Freq: Status: Active Protocol: Document 05/14/21 15:07 LRN (Rec: 05/14/21 16:30 LRN [id number]) Current Condition History of Current Condition Onset Date 4 months ago. Current Complaints L sided neck pain with bilateral neck tightness. History of Current Condition Neck problems for 15 yrs. Was given ex's by chiropractor, but has been having trouble looking behind to back up to left. 4 months ago has been having sharp pain on L side of neck while turning the head either direction. Went to chiropractor but he suggested an X-ray and it showed normal bone structure, so was referred to physical therapy. Meantime started doing massage 1x/week and accupuncture that seems to have relieved the pain down the neck and back and sometimes is able to turn the head without the pain, but sometimes has pain. 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 Retired agricultural banking. Developmental History Developmental History Lives on [facility]. Treatment Goals Patient/Caregiver Goals Pt goal is to be able to rotate head at least 35 deg's to improve driving and biking ability. Pt goal is to be able to wake in morning without L sided neck pain. Prior Functional Status Baseline Function- ADL's Independent Baseline Function- Mobility Independent Current Functional Impairments (Reported) Functional Limitations- ADL's Difficulty rotating head for driving or biking. Wakes in morning with stiff neck (side sleeper) Functional Limitations- Recreation/ Riding street bike difficulty Hobbies Functional Limitations- Other Difficulty driving Personal Factors Other Personal Factors That May Effect 15 yr chronic neck pain Therapy/Recovery history, controlled A.Fib/HBP. Having at same time having massage (1x/week) and accupuncture (2 more appts) treatments. PT-OP-C Subjective Start: 05/13/21 17:17 Freq: Status: Active Protocol: Document 07/16/21 15:08 LRN (Rec: 07/16/21 15:53 LRN [id number]) OP-PT Subjective Patient Comments Patient Comments States he is the same. Has a little trouble looking to the left when driving. C/O pain above base of skull today. PT-OP-H Neuro Start: 05/13/21 17:17 Freq: Status: Active Protocol: Document 05/14/21 15:07 LRN (Rec: 05/14/21 16:30 LRN [id number]) Sensation Evaluation Gross Sensation Gross Sensation WNL PT-OP-J Posture/Palpation/Skin Start: 05/13/21 17:17 Freq: Status: Active Protocol: Document 05/14/21 15:07 LRN (Rec: 05/14/21 16:30 LRN [id number]) Posture Evaluation Position Sitting Head/C-Spine Posture Forward Head Shoulder Posture (L) Elevated Pelvis Posture Anteriorly Tilted Knee Posture (L) Excess Flexion,(R) Excess Flexion Palpation Assessment Location Neck Palpation Location Subocciptal reg, C3, C4, C5 L TP & C6 cheryl TP tenderness Palpation Findings Tenderness Palpation Details Decreased joint mobility, limited by pain at C1 though C7. Decreased First rib mobility. PT-OP-K Range of Motion Start: 05/13/21 17:17 Freq: Status: Active Protocol: Document 07/16/21 15:08 LRN (Rec: 07/16/21 15:53 LRN [id number]) Cervical Spine Range of Motion Cervical Spine Active Degrees Testing Position Sitting Flexion 42 Extension 27 Rotation Left 25 Rotation Right 28 PT-OP-L Special Tests Start: 05/13/21 17:17 Freq: Status: Active Protocol: Document 05/14/21 15:07 LRN (Rec: 05/14/21 16:30 LRN [id number]) Special Tests Cervical Spine Special Tests Traction Test Results + Comments Decrease in neck pain. Vertebral Artery Test Results Negative bilaterally PT-OP-M Strength Start: 05/13/21 17:17 Freq: Status: Active Protocol: Document 05/14/21 15:07 LRN (Rec: 05/14/21 16:30 LRN [id number]) Cervical Spine Strength Cervical Spine Manual Muscle Testing Testing Position Sitting Flexion (C1-2) 5 Normal Extension 5 Normal Rotation Left 3+ Fair+ Rotation Right 4 Good Lateral Flexion Left (C3) 5 Normal Lateral Flexion Right (C3) 5 Normal Shoulder Strength Shoulder Manual Muscle Testing Right Comments Generally 5/5 Left Comments Generally 5/5 PT-OP-Q Treatments Start: 05/13/21 17:17 Freq: Status: Active Protocol: Document 07/16/21 15:08 LRN (Rec: 07/16/21 15:53 LRN [id number]) Therapeutic Exercises Sitting Exercises Shoulder rolls backward Sitting Exercise Name Shoulder rolls Side bilateral Reps/Minutes 2' C AROM Sitting Exercise Name Flex/Ext (shoulder rolls between) and rotation Reps/Minutes 4' Comments ROM taken after therapy Chin Tuck Sitting Exercise Name Chin tuck review Reps/Minutes 1' C rot Sitting Exercise Name Active C. Rot Side bilateral Reps/Minutes 6' Comments Cuing for chin tuck C Flex Sitting Exercise Name Active C. Flex Reps/Minutes 2' C. Ext Sitting Exercise Name Active C. Ext and neck elongation Reps/Minutes 2' Manual Therapy Treatment Soft Tissue Mobilization L UT Body Location L UT Mobilization Type Sustained Pressure,Trigger Point Release Cervical Rotators Body Location L Cervical Rotators Mobilization Type Myofascial Release,Other Body Position Prone Comments AROM & Deep Breathing w/head rot. nECK Body Location Above occiput Mobilization Type Myofascial Release Intensity/Depth Moderate Body Position Prone Joint Mobilizations 1st rib Joint 1st rib Direction Inferior Grade II Body Position Prone Reps/Duration 4' PT-OP-R Modalities Start: 05/13/21 17:17 Freq: Status: Active Protocol: Document 07/09/21 15:06 LRN (Rec: 07/09/21 16:17 LRN [id number]) Hot Pack/Cold Pack Treatment Cold Pack Location Neck post therapy Patient Position Hooklying Treatment Duration (minutes) 10 Patient Tolerance Good PT-OP-T Assessment and Plan Start: 05/13/21 17:17 Freq: Status: Active Protocol: Document 07/16/21 15:08 LRN (Rec: 07/16/21 15:53 LRN [id number]) Physical Therapy Assessment Goals Three Impairment L sided Neck pain with rotation and waking first in the morning (12/26) Short Term Goal (STG) Decrease pain with cervical rotation to / (07/12/21: No Neck pain noted with daily activities) (07/16/21: No neck pain with C . AROM today, only tightness on L side of neck). STG Duration 06/15/21 (05/27/21: Variable progress) Motion Picture Set Up Worker Goal (LTG) Pt will be able to wake in morning without L sided neck pain. (06/18/21: With positioning modifications, pt has no pain in mornings). LTG Duration 07/13/21 (06/18/21: MET GOAL) Two Impairment Decreased Neck rotation AROM limiting driving & biking Impairment AROM (sitting): rotation: 35 deg's right, 3 deg's left SB: 3 deg's left, 5 deg's right Flex: 5 deg's, Ext: 25 deg's Short Term Goal (STG) Improve cervical AROM 5-10 deg 's. (06/20/21: Post therapy: AROM ( sitting): Flex 63 deg's, Ext 24 deg's, SB: 8 right, 20 left ; ROT: 35 deg's right, 33 deg' s left.) (07/09/21: AROM (sitting) Start of therapy: Flex 43 deg's, Ext 24 deg's, SB: 12 right, 12 left; ROT: 28 deg's right, 25 deg's left. AROM (sitting) END of therapy: Flex 43 deg's, Ext 30 deg's, SB: 14 right, 12 left; ROT: 30 deg's right, 30 deg's left ). STG Duration 06/15/21 (07/09/21: GOAL MET except R rot is same ) Motion Picture Set Up Worker Goal (LTG) Pt goal is to be able to rotate head at least 35 deg's bilaterally to improve safety with driving and biking. (06/11/21: At Start: Rot: 22 deg's right, 10 deg's left. At End: Rot: 38 deg's right , 40 deg's left.) (06/20/21: C. ROT : 35 deg's right, 33 deg's left) LTG Duration 07/18/21 (07/09/21: 80-85% progress towards goal) One Impairment Lacks appropriate self care program. Short Term Goal (STG) Pt will be independent in a self care neck mobility ex program. (07/12/21: Issued previously HEP for C rot & ext/retraction , New issue of flex/ext) STG Duration 06/15/21 (07/12/21: MET GOAL) Long-Term Goal (LTG) Pt will be independent in a self care HEP of ROM, strengthening and postural ex' s. (06/20/21: Added Scalene/SCM stretch) (07/12/21: Added C. flex/ext AROM to the current HEP of rot and neck elongation) LTG Duration 07/18/21 (06/20/21: Progressed) Progress Towards Goals Progress Comments No pain with cervical AROM, only tightness with L rotation . Assessment Summary Assessment Posterior head pain relieved after STM. Cervical AROM greatrly improved with stretches; variable available AROM without pain, only reported tightness. Pain to start may be due to pt changing height of his nighttime pillow, being now almost flat with head posture. Physical Therapy Plan Frequency and Duration Frequency of Treatment 2x/Week Plan of Care Start Date 05/14/21 Plan of Care End Date 07/18/21 Next Visit Focus/Plan Next Note Type Treatment Note Next Visit Plan Measure C. rot at start/end of therapy. Focus on improving C. L rot. DC to comprehensive HEP. Review HEP and HEP: scapular depressors.
--- NOTE | 2021-07-18 16:09 | PT.OTN ---
Current Diagnoses Cervicalgia (07/18/21) Muscle weakness (generalized) (07/18/21) Physical Therapy Treatment Note PT-OP-A Visit Information Start: 05/13/21 17:17 Freq: Status: Active Protocol: Document 07/18/21 15:08 LRN (Rec: 07/18/21 16:09 LRN [id number]) Out-Patient Physical Therapy Visit Information Visit Information Visit Type Treatment Note Visit Start Time 15:08 Visit Stop Time 15:49 Total Visit Minutes 41 Visit Number 16 Evaluation Information Evaluation Date 05/14/21 Precautions Precautions arthritis, neuropathy of feet (pain, tingling, numbness), HBP & A. Fib controlled by medications (warfarin, lisinopril), hearing problems, neck pain for 15 yrs. PT-OP-B Current Condition Start: 05/13/21 17:17 Freq: Status: Active Protocol: Document 05/14/21 15:07 LRN (Rec: 05/14/21 16:30 LRN [id number]) Current Condition History of Current Condition Onset Date 4 months ago. Current Complaints L sided neck pain with bilateral neck tightness. History of Current Condition Neck problems for 15 yrs. Was given ex's by chiropractor, but has been having trouble looking behind to back up to left. 4 months ago has been having sharp pain on L side of neck while turning the head either direction. Went to chiropractor but he suggested an X-ray and it showed normal bone structure, so was referred to physical therapy. Meantime started doing massage 1x/week and accupuncture that seems to have relieved the pain down the neck and back and sometimes is able to turn the head without the pain, but sometimes has pain. 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 Retired agricultural banking. Developmental History Developmental History Lives on [facility]. Treatment Goals Patient/Caregiver Goals Pt goal is to be able to rotate head at least 35 deg's to improve driving and biking ability. Pt goal is to be able to wake in morning without L sided neck pain. Prior Functional Status Baseline Function- ADL's Independent Baseline Function- Mobility Independent Current Functional Impairments (Reported) Functional Limitations- ADL's Difficulty rotating head for driving or biking. Wakes in morning with stiff neck (side sleeper) Functional Limitations- Recreation/ Riding street bike difficulty Hobbies Functional Limitations- Other Difficulty driving Personal Factors Other Personal Factors That May Effect 15 yr chronic neck pain Therapy/Recovery history, controlled A.Fib/HBP. Having at same time having massage (1x/week) and accupuncture (2 more appts) treatments. PT-OP-C Subjective Start: 05/13/21 17:17 Freq: Status: Active Protocol: Document 07/18/21 15:08 LRN (Rec: 07/18/21 16:09 LRN [id number]) OP-PT Subjective Patient Comments Patient Comments Has been good for 2 days. Did ex's today and didn't use heat. After doing errands, the neck started to hurt again , so stopped to do ex's and range returned. Was supposed to do a massage today before therapy, but will do it after therapy. Patient Questionnaires Neck Disability Index NDI Score 4 Neck Disability Index Impairment 1 to 19% Impaired (Score 1-9) OP-PT Pain Assessment Pain Assessment Grid Paper Pain Assessment Grid Completed Yes Location L side of neck Pain Location Details L side of neck Intensity 1 Scale Used Numeric (0 - 10) Description- Other Stiff Frequency Intermittent PT-OP-H Neuro Start: 05/13/21 17:17 Freq: Status: Active Protocol: Document 05/14/21 15:07 LRN (Rec: 05/14/21 16:30 LRN [id number]) Sensation Evaluation Gross Sensation Gross Sensation WNL PT-OP-J Posture/Palpation/Skin Start: 05/13/21 17:17 Freq: Status: Active Protocol: Document 05/14/21 15:07 LRN (Rec: 05/14/21 16:30 LRN [id number]) Posture Evaluation Position Sitting Head/C-Spine Posture Forward Head Shoulder Posture (L) Elevated Pelvis Posture Anteriorly Tilted Knee Posture (L) Excess Flexion,(R) Excess Flexion Palpation Assessment Location Neck Palpation Location Subocciptal reg, C3, C4, C5 L TP & C6 cheryl TP tenderness Palpation Findings Tenderness Palpation Details Decreased joint mobility, limited by pain at C1 though C7. Decreased First rib mobility. PT-OP-K Range of Motion Start: 05/13/21 17:17 Freq: Status: Active Protocol: Document 07/18/21 15:08 LRN (Rec: 07/18/21 16:09 LRN [id number]) Cervical Spine Range of Motion Cervical Spine Active Degrees Testing Position Sitting Flexion 40 Extension 35 Rotation Left 25 Rotation Right 35 Lateral Flexion Left 6 Lateral Flexion Right 15 Comments Above AROM taken at start of therapy. AROM at END of therapy: Flex 49 deg's, Ext 38 deg's, SB: deferred testing; ROT: 47 deg 's right, 33 deg's left. PT-OP-L Special Tests Start: 05/13/21 17:17 Freq: Status: Active Protocol: Document 05/14/21 15:07 LRN (Rec: 05/14/21 16:30 LRN [id number]) Special Tests Cervical Spine Special Tests Traction Test Results + Comments Decrease in neck pain. Vertebral Artery Test Results Negative bilaterally PT-OP-M Strength Start: 05/13/21 17:17 Freq: Status: Active Protocol: Document 05/14/21 15:07 LRN (Rec: 05/14/21 16:30 LRN [id number]) Cervical Spine Strength Cervical Spine Manual Muscle Testing Testing Position Sitting Flexion (C1-2) 5 Normal Extension 5 Normal Rotation Left 3+ Fair+ Rotation Right 4 Good Lateral Flexion Left (C3) 5 Normal Lateral Flexion Right (C3) 5 Normal Shoulder Strength Shoulder Manual Muscle Testing Right Comments Generally 5/5 Left Comments Generally 5/5 PT-OP-Q Treatments Start: 05/13/21 17:17 Freq: Status: Active Protocol: Document 07/18/21 15:08 LRN (Rec: 07/18/21 16:09 LRN [id number]) Therapeutic Exercises Supine Exercises Neck Elongation Supine Exercise Name Neck Elongation stretch Comments Phys cuing needed at top of head for pt to elongate Chin tuck w/cervical rot Supine Exercise Name Chin tuck with active cervical rotation Side bilateral Reps/Minutes 5' Sitting Exercises Shoulder rolls backward Sitting Exercise Name Shoulder rolls Side bilateral Reps/Minutes 2' C AROM Sitting Exercise Name Flex/Ext (shoulder rolls between) and rotation Reps/Minutes 6' Comments ROM taken before & after therapy Chin Tuck Sitting Exercise Name Chin tuck review Reps/Minutes 1' C rot Sitting Exercise Name Active C. Rot Side bilateral Reps/Minutes 6' Comments Cuing for chin tuck C Flex Sitting Exercise Name Active C. Flex Reps/Minutes 2' C. Ext Sitting Exercise Name Active C. Ext and neck elongation Reps/Minutes 2' Manual Therapy Treatment Soft Tissue Mobilization L UT Body Location L UT Mobilization Type Sustained Pressure,Trigger Point Release Cervical Rotators Body Location L Cervical Rotators Mobilization Type Myofascial Release,Strain/ Counterstrain,Other Body Position Prone Comments AROM & Deep Breathing w/head rot. Joint Mobilizations 1st rib Joint 1st rib Direction Inferior Grade II Body Position Prone Reps/Duration 4' Comments Oscillation and sustained pressure. PT-OP-R Modalities Start: 05/13/21 17:17 Freq: Status: Active Protocol: Document 07/09/21 15:06 LRN (Rec: 07/09/21 16:17 LRN [id number]) Hot Pack/Cold Pack Treatment Cold Pack Location Neck post therapy Patient Position Hooklying Treatment Duration (minutes) 10 Patient Tolerance Good PT-OP-T Assessment and Plan Start: 05/13/21 17:17 Freq: Status: Active Protocol: Document 07/18/21 15:08 LRN (Rec: 07/18/21 16:09 LRN [id number]) Physical Therapy Assessment Goals Three Impairment L sided Neck pain with rotation and waking first in the morning (3/10) Short Term Goal (STG) Decrease pain with cervical rotation to 1/10 (07/18/21: No Neck pain noted with rotation, just stiff) STG Duration 06/15/21 (07/18/21: MET GOAL, but pain intensity onset is variable) Nursing Home Goal (LTG) Pt will be able to wake in morning without L sided neck pain. (06/18/21: With positioning modifications, pt has no pain in mornings). LTG Duration 07/13/21 (06/18/21: MET GOAL) Two Impairment Decreased Neck rotation AROM limiting driving & biking Impairment AROM (sitting): rotation: 35 deg's right, 3 deg's left SB: 3 deg's left, 5 deg's right Flex: 5 deg's, Ext: 25 deg's Short Term Goal (STG) Improve cervical AROM 5-10 deg 's. (07/18/21: Post therapy: AROM (sitting): AROM at END of therapy: Flex 49 deg's, Ext 38 deg's, SB: deferred testing ; ROT: 47 deg's right, 33 deg's left). STG Duration 06/15/21 (07/09/21: GOAL MET except R rot is same ) Nursing Home Goal (LTG) Pt goal is to be able to rotate head at least 35 deg's bilaterally to improve safety with driving and biking. (07/18/21: C. ROT : 47 deg's right, 33 deg's left) LTG Duration 07/18/21 (07/18/21: 94% progress towards goal) One Impairment Lacks appropriate self care program. Short Term Goal (STG) Pt will be independent in a self care neck mobility ex program. (07/12/21: Issued previously HEP for C rot & ext/retraction , New issue of flex/ext) STG Duration 06/15/21 (07/12/21: MET GOAL) Nursing Home Goal (LTG) Pt will be independent in a self care HEP of ROM, strengthening and postural ex' s. (06/20/21: Added Scalene/SCM stretch) (07/12/21: Added C. flex/ext AROM to the current HEP of rot and neck elongation) LTG Duration 07/18/21 (07/18/21: MET GOAL ) Assessment Summary Assessment Pt presents with stiffness in the L side of the neck with L rotation. Functionally his current AROM allows him to drive without complaints of pain. Pt is no longer waking in the morning with L sided neck pain. Neck disability Index score is the same, but his score is 50% less (from 8 to 4). Physical Therapy Plan Discharge Physical Therapy Discharge Reasons Goals Met Discharge Comments Pt has done well with therapy, but has a tendancy to be stiff in the L side of the neck, probably due to arthritis. He is able to manage his neck pain with his AROM exercises. If he gets return of his pain that he is not able to manage, referral to physical therapy in the future would be recommended. Thank you for your
== END 2021-07-25 09:46 ==
LOC: PHYS 15:00
PROVIDERS: PCP Family Medicine; Referring Provider Family Medicine; Visit Provider Family Medicine
DX: M54.2 Cervicalgia (principal); M62.81 Muscle weakness (generalized)
CPT/HCPCS: 97010; 97110; 97140; 97162; 97535

== ENCOUNTER → 2021-10-28 12:00 | Outpatient (CLI) | payer MEDICARE, SELFPAY ==
--- NOTE | 2021-10-28 12:03 | DI.US.S_ITS ---
PROCEDURE: US CAROTID DOPPLER BI INDICATIONS: possible tia TECHNIQUE: Color and pulse Doppler interrogation was performed of both carotid systems, with image documentation and velocity measurements. COMPARISON: None. FINDINGS: Stenosis calculations are based on SRU (Society of Radiologists in Ultrasound) criteria. Right side: Brachial blood pressure: 144/87 mm Hg. Common carotid artery peak systolic velocity: 73 cm/sec. Internal carotid artery peak systolic velocity: 63 cm/sec. Internal carotid artery end diastolic velocity: 21 cm/sec. External carotid artery peak systolic velocity: 80 cm/sec. ICA/CCA peak systolic ratio: 0.86 . Oconnell scale imaging description: Moderate calcific plaque at the bifurcation Percent internal carotid artery stenosis: Less than 50% . Vertebral artery: Flow direction is antegrade. Left side: Brachial blood pressure: 148/76 mm Hg. Common carotid artery peak systolic velocity: 109 cm/sec. Internal carotid artery peak systolic velocity: 76 cm/sec. Internal carotid artery end diastolic velocity: 30 cm/sec. External carotid artery peak systolic velocity: 61 cm/sec. ICA/CCA peak systolic ratio: 0.7 . Oconnell scale imaging description: Moderate calcific plaque at the bifurcation Percent internal carotid artery stenosis: Less than 50% . Vertebral artery: Flow direction is antegrade. IMPRESSION: 1. Less than 50% bilateral internal carotid artery stenosis. 2. Antegrade vertebral artery flow bilaterally. Dictated by: Raffy Moncada M.D. on 10/28/2021 at 15:12 Approved by: Raffy Moncada M.D. on 10/28/2021 at 15:13
--- NOTE | 2021-10-28 12:03 | DI.US.S_ITS ---
PROCEDURE: US THYROID INDICATIONS: nodules, annual screening for stability TECHNIQUE: Real-time scanning was performed of the thyroid gland, with image documentation. COMPARISON: [facility], US, US THYROID, 05/28/2020, 7:56. FINDINGS: Right: Thyroid lobe measures 4.1 x 1.3 x 1.2 cm, and is a heterogeneous in echotexture. Left: Thyroid lobe measures 3.9 x 1.3 x 1.3 cm, and is heterogeneous in echotexture. Isthmus: 3.3 mm thick. Nodule number: 1 Location: Left mid Size: 0.4 x 0.6 x 0.4 cm. Composition: Solid Echogenicity: Hypoechoic Shape: Taller than wide. Margins: Irregular Echogenic foci: None Total points: 7 ACR TI-RADS category: Highly suspicious; annual follow-up until 5 years. Nodule number: 2 Location: Right superior Size: 0.7 x 0.4 x 0.4 cm. Composition: Spongiform Echogenicity: Hypoechoic Shape: wider than tall. Margins: Smooth Echogenic foci: None Total points: 4 ACR TI-RADS category: Moderately suspicious; annual follow-up until 5 years. Nodule number: 3 Location: Right superior Size: 0.6 x 0.5 x 0.7 cm. Composition: Spongiform Echogenicity: Hypoechoic Shape: wider than tall. Margins: Irregular Echogenic foci: None. Total points: 4 ACR TI-RADS category: Moderately suspicious, annual follow-up until 5 years. Nodule number: 4 Location: Right mid Size: 0.5 x 0.5 x 0.5 cm. Composition: Solid Echogenicity: Isoechoic Shape: wider than tall. Margins: Smooth Echogenic foci: None. Total points: 3 ACR TI-RADS category: Mildly suspicious; annual follow-up with the aforementioned nodules. IMPRESSION: Suspicious thyroid nodules as detailed above, which measure less than 1 cm. ACR TI-RADS definitions and recommendations: TI-RADS 1 (benign): 0 points. FNA not needed. TI-RADS 2 (not suspicious): 2 points. FNA not needed. TI-RADS 3 (mildly suspicious): 3 points. * FNA if 2.5 cm or larger, follow up if 1.5 cm or larger (at 1, 3, and 5 years). TI-RADS 4 (moderately suspicious): 4-6 points. * FNA if 1.5 cm or larger, follow up if 1 cm or larger (at 1, 2, 3, and 5 years). TI-RADS 5 (highly suspicious): 7 points or more. * FNA if 1 cm or larger, follow up if 0.5 cm or larger (every year for 5 years). Dictated by: Fredrick Falk M.D. on 10/28/2021 at 14:14 Approved by: Fredrick Falk M.D. on 10/28/2021 at 14:22
--- NOTE | 2021-10-28 12:03 | DI.MRI.S_ITS ---
PROCEDURE: MR STROKE Pre- and post-contrast brain MRI, non-contrast brain MR angiogram, pre- and postcontrast neck MR angiogram INDICATIONS: possible tia TECHNIQUE: Brain: Noncontrast axial T1 spin echo, axial T2 fast spin echo, sagittal and axial FLAIR, coronal T2 fast spin echo, axial gradient echo, axial diffusion and ADC through the brain. After the administration of contrast, axial 3D VIBE of the cranial vasculature and brain. Brain MRA: Non-contrast 3-D time of flight MR angiogram, with multiple rmcaqgx-ujvzrbxqd-unckdcsfbj (MIP) reformats performed. Neck MRA: Axial and sagittal TruFISP through the neck. Coronal dynamic MR angiogram during administration of contrast in the arterial and venous phases, with 3-dimenstional zoqqgxo-pydsklxnc-wlrfnmzqnx (MIP) reformats constructed from subtraction images. COMPARISON: None. FINDINGS: Image quality: Excellent. BRAIN: CSF spaces: Ventricles are normal in size and shape. Basal cisterns are patent. No extra-axial fluid collections. Brain: No intracranial bleeds or mass effects. Oconnell-white matter interface is normal. Diffusion weighted images show no acute ischemic insults. Brainstem appears normal. Normal intravascular flow voids are present. No abnormal intracranial enhancement. Skull and face: Calvarial marrow signal is normal. Orbits appear normal. Sinuses: Sinuses and mastoids are clear. BRAIN MR ANGIOGRAM: Anterior circulation: Intracranial internal carotid arteries are normal in size and enhancement. The flow within the paired anterior cerebral arteries is normal and symmetric. The flow within the middle cerebral arteries is normal and symmetric. The anterior communicating artery is seen. No stenoses, occlusions, or aneurysms. Posterior circulation: Loss of flow-related signal in the right V3 segment distally extending into the V4 segment. This may represent artifact or potentially stenosis. 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 NECK MR ANGIOGRAM: Carotids: Great vessels demonstrate a conventional anatomy as they arise from the aortic arch. The origins of the common carotid arteries appear patent. The calibers and courses of both common carotid arteries are normal. The bifurcation regions appear normal bilaterally. The internal carotid arteries demonstrate normal course and caliber. Posterior circulation: Hypoplastic and diminutive right vertebral artery which appears to terminate in PICA 0 and has a questionable stenosis or occlusion in the right V3/V4 segment. Miscellaneous: Subclavian arteries appear patent. Pre-contrast images through the neck show no soft tissue abnormalities. IMPRESSION: BRAIN MRI: No acute infarct or other acute intracranial process. Mild global cerebral volume loss and chronic microvascular ischemic change. 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 Consider a CT angiogram of the head for more comprehensive evaluation. No flow-limiting stenosis otherwise. NECK MR ANGIOGRAM: No flow-limiting stenosis in the neck. Dictated by: Burton Carcamo M.D. on 10/28/2021 at 13:07 Approved by: Burton Carcamo M.D. on 10/28/2021 at 13:15
== END ==
PROVIDERS: PCP Family Medicine; Referring Provider Family Medicine; Visit Provider Family Medicine
DX: I65.23 Occlusion and stenosis of bilateral carotid arteries (principal); G45.9 Transient cerebral ischemic attack, unspecified; I48.91 Unspecified atrial fibrillation; E04.2 Nontoxic multinodular goiter
CPT/HCPCS: 70548; 70553; 76536; 93880

== ENCOUNTER → 2021-12-20 14:03 | Outpatient (CLI) | payer MEDICARE, SELFPAY ==
--- NOTE | 2021-12-20 | DI.MRI.S_ITS ---
PROCEDURE: MR CERVICAL SPINE WO CON INDICATIONS: ARTHROPATHY OF CERIVICAL FACET JOINT TECHNIQUE: Noncontrast sagittal T1 spin echo and T2 fast spin echo, sagittal STIR, foraminal oblique sagittal T2 fast spin echo, and axial gradient echo or T2 fast spin echo through the cervical spine. COMPARISON: None. FINDINGS: Image quality: Excellent. Alignment and Curvature: There is normal bony alignment. Bone Marrow: Marrow demonstrates normal overall signal. Spinal Cord: Visualized spinal cord has normal size and signal. No cerebellar tonsillar herniation. Paraspinous Soft Tissues: No paravertebral masses. Prevertebral soft tissues are normal in thickness. C2-C3: No significant disc bulge. The foramina and central canal are patent. C3-C4: The disc is partially ossified. No disc bulge. The foramina and central canal are patent. C4-C5: No significant disc bulge. Uncovertebral hypertrophy causes mild bilateral foraminal stenosis. The central canal is patent. C5-C6: Diffuse disc bulge and uncovertebral hypertrophy cause moderate bilateral foraminal stenosis. The central canal has mild stenosis. C6-C7: No significant disc bulge. Uncovertebral hypertrophy causes mild bilateral foraminal stenosis. The central canal is patent. C7-T1: No significant disc bulge. The foramina and central canal are patent. IMPRESSION: 1. Multilevel degenerative disc disease causing foraminal stenosis as above. 2. No central canal stenosis. 3. No acute abnormality. 4. Normal cord signal. Dictated by: Landon Ricks M.D. on 12/20/2021 at 17:40 Approved by: Landon Ricks M.D. on 12/20/2021 at 17:49
== END ==
PROVIDERS: PCP Family Medicine; Referring Provider Physician Assistant Surgical; Visit Provider Physician Assistant Surgical
DX: S16.1XXA Strain of muscle, fascia and tendon at neck level, initial encounter (principal); M47.812 Spondylosis without myelopathy or radiculopathy, cervical region; M50.322 Other cervical disc degeneration at C5-C6 level; M48.02 Spinal stenosis, cervical region; X58.XXXA Exposure to other specified factors, initial encounter
CPT/HCPCS: 72141

== ENCOUNTER → 2022-02-19 08:07 | Outpatient (CLI) | payer MEDICARE, SELFPAY ==
[2022-02-19 09:51] LABS: Alanine Aminotransferase 17 IU/L (<50); Albumin 4.4 g/dL (3.5-5.0); Albumin Globulin Ratio 1.6 (1.0-2.8); Alkaline Phosphatase 56 U/L (38-126); Aspartate Aminotransferase 31 IU/L (17-59); BUN Creatinine Ratio 20.8 (6-22); Bilirubin Total 0.8 mg/dL (0.2-1.3); Blood Urea Nitrogen 20 mg/dL (9-20); Calcium 9.4 mg/dL (8.4-10.2); Carbon Dioxide 30 mmol/L (22-32); Chloride 98 mmol/L (98-107); Cholesterol 189 mg/dL (140-199); Estimated Glomerular Filt Rate > 60 mL/min (>60); Globulin 2.7 g/dL (1.7-4.1); Glucose 123 mg/dL (80-110); HDL Cholesterol 55 mg/dL (40-60); HEMOLYSIS < 15 (0-50); LDL Cholesterol Calculated 120 mg/dL (<100); Potassium 4.3 mmol/L (3.4-5.1); Sodium 135 mmol/L (137-145); Total Protein 7.1 g/dL (6.3-8.2); Triglycerides 72 mg/dL (35-150)
[2022-02-19 10:14] LABS: Thyroid Stimulating Hormone 1.71 uIU/mL (0.47-4.68)
== END ==
PROVIDERS: PCP Family Medicine; Referring Provider Nurse Practitioner; Visit Provider Nurse Practitioner
DX: E78.00 Pure hypercholesterolemia, unspecified (principal); I48.21 Permanent atrial fibrillation
CPT/HCPCS: 36415; 80053; 80061; 84443